=== PATIENT | female | born 1960 | race Caucasian/White ===

== ENCOUNTER 2019-07-25 18:20 | Emergency (ER) | payer MEDICARE, SELFPAY ==
--- NOTE | ~2019-07-25 | XR_ITS ---
EXAMINATION: XR nasal bones min 3V INDICATION: Facial pain TECHNIQUE: Three views of the nasal bones are obtained. COMPARISON: None available FINDINGS: There are depressed bilateral nasal bone fractures. Soft tissue swelling overlies the fract ures. The remaining visualized facial bones appear normal. The paranasal sinuses appear well-aerated. The nasal septum is midline. IMPRESSION: 1. Depressed bilateral nasal bone fractures. Reviewed, dictated and finalized at location A. IMPLEMENT ENGINE MECHANIC
[2019-07-25 18:34] VITALS: BP 174/88; PULSE 55; RESP 20; TEMP 36.6; O2SAT 100
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
--- NOTE | 2019-07-25 19:45 | PC.NURSE ---
20ml NS flushed through b/l nostrils per EDP verbal order.
[2019-07-25 21:33] VITALS: BP 140/70; PULSE 80; RESP 20; TEMP 36.7; O2SAT 99
== END 2019-07-25 21:34 | disposition home or self-care (01) ==
PROVIDERS: Emergency Provider Emergency Medicine
DX: S02.2XXA Fracture of nasal bones, initial encounter for closed fracture (principal); F32.9 Major depressive disorder, single episode, unspecified; M79.7 Fibromyalgia; E78.5 Hyperlipidemia, unspecified; E07.9 Disorder of thyroid, unspecified; Z90.81 Acquired absence of spleen; Z87.891 Personal history of nicotine dependence
CPT/HCPCS: 70160; 99283

== ENCOUNTER 2019-12-22 14:56 | Outpatient (CLI) | payer MEDICARE, SELFPAY ==
--- NOTE | ~2019-12-22 | US_ITS ---
EXAMINATION: US carotid duplex BI DATE: 12/22/2019 15:39 INDICATION: Encephalopathy with short-term memory loss. TECHNIQUE: Grayscale, color Doppler, and pulsed Doppler images of the cervical carotid arteries were obtained. The degree of vessel stenosis is placed in one of the following categories: normal, <50%, 5 0-69%, >=70% but less than near-occlusion, near-occlusion, or total occlusion. Note that percent sten osis relative to normal distal artery lumen diameter is indirectly measured from velocity measurement s as described by Giorgio, et al. Radiology 2003; [id number]:[id number]. COMPARISON: None. FINDINGS: RIGHT: The right common carotid artery (CCA) peak systolic velocity (PSV) is 74 cm/s. The right internal car otid artery (ICA) PSV is 82 cm/s. The right ICA end-diastolic velocity (EDV) is 19 cm/s. The right IC A/CCA PSV ratio is 0.8. Grayscale and color Doppler images yield an estimate of <50% diameter reducti on from minimal plaque in the ICA. The external carotid artery (ECA) PSV is 70 cm/s. There is antegra de flow in the right vertebral artery. LEFT: The left CCA PSV is 79 cm/s. The left ICA PSV is 65 cm/s. The left ICA EDV is 16 cm/s. The left ICA/C CA PSV ratio is 0.8. Grayscale and color Doppler images yield an estimate of <50% diameter reduction from small amount of plaque in the ICA. The ECA PSV is 48 cm/s. There is antegrade flow in the left v ertebral artery. IMPRESSION: 1. <50% stenosis in the right internal carotid artery. 2. <50% stenosis in the left internal carotid artery. Reviewed, dictated and finalized at location A.
== END 2019-12-22 14:57 | disposition home or self-care (01) ==
LOC: ANHIMG 14:57
PROVIDERS: PCP Family Medicine; Visit Provider Nurse Practitioner Family
DX: R09.89 Other specified symptoms and signs involving the circulatory and respiratory systems (principal); R41.3 Other amnesia; I65.23 Occlusion and stenosis of bilateral carotid arteries
CPT/HCPCS: 93880

== ENCOUNTER 2020-01-22 09:13 | Outpatient (CLI) | payer MEDICARE, SELFPAY ==
--- NOTE | ~2020-01-22 | MM_ITS ---
EXAMINATION: MM screening karen BI w tim HISTORY: Screening TECHNIQUE: Craniocaudal and mediolateral oblique 3-D tomosynthesis images were obtained and synthetic 2-D images were generated. CAD analysis was submitted and interpreted. COMPARISON: Comparison to multiple prior studies sequentially, with oldest reviewed study dated 08/2012. BREAST PARENCHYMAL COMPOSITION: There are scattered areas of fibroglandular density. FINDINGS: There is no evidence of suspicious mass, calcification, or architectural distortion to sugg est malignancy in either breast. There has been no suspicious interval change. IMPRESSION: 1. No mammographic evidence of malignancy. 2. Recommend routine screening mammography in one year. BI-RADS Category 1: Negative Reviewed, dictated and finalized at location A.
== END 2020-01-22 09:14 | disposition home or self-care (01) ==
PROVIDERS: PCP Family Medicine; Visit Provider Nurse Practitioner Family
DX: Z12.31 Encounter for screening mammogram for malignant neoplasm of breast (principal)
CPT/HCPCS: 77063; 77067

== ENCOUNTER 2020-07-16 09:38 | Outpatient (CLI) | payer MEDICARE, SELFPAY ==
--- NOTE | 2020-08-09 22:42 | WPDHOMESLEEP ---
Sleep Study - Home Unattended Date of Study: 07/16/20 Ordering Provider: Gianna Love NP Interpreting Provider: Vickie Duran MD Home Sleep Study Type: Apnea Link Air Height: 1.55 m Weight: 81.193 kg Body Mass Index: 33.8 Neck Circumference (inches): 15 [place]: 13 Reason for Sleep Study Fatigue, non restorative sleep, snoring, ophthalmic aide awakenings. Sleep History Caitlyn Mane is a 60 year old female who snores loudly. She wakes herself up snoring. This has worsened over the years. It is so loud that she says it wakes the neighbors. She takes naps in the day, snores during naps. She has chronic rhinitis and this causes her to breathe through mouth at night. She sometimes wakes up coughing. She wakes up with a dry mouth, stuffy head and feels groggy in the morning. After 6 hours of being awake she is exhausted and needs to take a nap. Because of these problem she went on disability in 1998. She has fibromyalgia. This is treated with Lyrica as well as other medications. Her depression is treated with Celexa minute. She has had 3 sleep studies, 2005 2008 and 2013 and this resulted in diagnosis of periodic limb movement disorder and narcolepsy. She was on several medications including Requip, Lunesta, Provigil as well as instituting sleep hygiene techniques and caffeine restriction. She stopped Provigil when she started Lyrica in 2018 due to side effects. She does not consume caffeine after 4:00 p.m.. She had sinus surgery 1997 after the start of her sleep problems to deal with chronic sinus infections. This surgery was repeated in 2008. This helped with recurrent sinus infections but not with her sleep issues. 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 She has tried nasal strips, 2 types of nasal dilators, a mandibular advancement device without improvement in her sleep. She is hoping CPAP can help with the collapse nasal valve. She occasionally awakens at night with heartburn, belching or coughing. She does not awaken from sleep feeling short of breath. She constantly has trouble sleeping with a cold. She does not wake up gasping for breath at night. She frequently has breathing problems at night observed by others. She occasionally sweats excessively at night. She does not notice her heart pounding or beating irregularly at night. She constantly falls asleep during the day, occasionally involuntarily never while driving. She does not have loss of muscle tone with strong emotion. She does not feel paralyzed on waking or falling asleep. She does not have vivid dreamlike scenes upon awakening or falling asleep. She does not feel afraid to go to sleep. She rarely has nightmares. She rarely remembers her dreams. She occasionally has racing thoughts. She rarely feels sad depressed or anxious. She rarely has muscular tension. She frequently notices parts of her body jerking. She constantly kicks at night. She does not have crawling and aching feelings in her legs at night. She occasionally has leg pain at night. She does not have morning jaw pain. She does not grind her teeth during sleep. She constantly is bothered by pain during the day. She occasionally is awakened by pain at night. She constantly wakes up feeling stiff in the morning with sore achy muscles and pain in the neck and spine. Normal bedtime is 9:00 p.m. falling asleep within 30 minutes, typically waking 2-3 times at night to urinate, read. Sometimes she may stay awake for 15 minutes and sometimes as long as 2 hours. She wakes in the morning at 5:00 a.m.. Weekend schedule is the same. She estimates getting 6 hours of sleep at night. [facility] Past Medical History Medical History Chronic fatigue syndrome Closed fracture nasal bone Depression
[2020-08-09 22:58] VITALS: BMI 33.8
== END 2020-07-16 09:39 | disposition home or self-care (01) ==
LOC: ANHCSM 09:39
PROVIDERS: PCP Family Medicine; Visit Provider Nurse Practitioner Family
DX: G47.10 Hypersomnia, unspecified (principal); G47.33 Obstructive sleep apnea (adult) (pediatric)
CPT/HCPCS: 95806

== ENCOUNTER → 2020-08-28 00:35 | Outpatient (CLI) | payer MEDICARE, SELFPAY ==
[2020-08-28 19:13] LABS: SARS-CoV-2 RNA PCR Negative
== END ==
PROVIDERS: PCP Family Medicine; Visit Provider Internal Medicine Critical Care Medicine
DX: Z01.812 Encounter for preprocedural laboratory examination (principal); Z20.822 Contact with and (suspected) exposure to COVID-19
CPT/HCPCS: C9803; U0003; U0005

== ENCOUNTER 2020-08-31 07:39 | Outpatient (CLI) | payer MEDICARE, SELFPAY ==
--- NOTE | 2020-09-15 11:45 | WPDSLEEPSTUD ---
Sleep Study Ordering Provider: Gianna Love NP Interpreting Physician: Vickie Duran MD Sleep Study Type: CPAP Titration Height: 1.55 m Weight: 81.647 kg Body Mass Index: 34.0 Neck Circumference (inches): 15 [place]: 13 Reason for Sleep Study Home Sleep Test July 16, 2020 with mild obstructive sleep apnea, AHI 9, desaturation to 84%, with 33% central apnea and 67% obstructive apneas; she present for a CPAP titration. Sleep History Caitlyn Mane is a 60 year old female who snores loudly, and wakes herself up snoring. This has worsened over the years. It is so loud that she says it wakes the neighbors. She takes naps in the day, snores during naps. She has chronic rhinitis and this causes her to breathe through her mouth at night. She sometimes wakes up coughing. She wakes up with a dry mouth, stuffy head and feels groggy in the morning. After 6 hours of being awake, she is exhausted and needs to take a nap. Because of these problem, she went on disability in 1998. She has fibromyalgia. This is treated with Lyrica as well as other medications. Her depression is treated with Celexa. She has had 3 sleep studies, 2005 2008 and 2013 and this resulted in diagnosis of periodic limb movement disorder and narcolepsy. She was on several medications including Requip, Lunesta, Provigil as well as instituting sleep hygiene techniques and caffeine restriction. She stopped Provigil when she started Lyrica in 2018 due to side effects. She does not consume caffeine after 4:00 p.m.. She had sinus surgery 1997 after the start of her sleep problems to deal with chronic sinus infections. This surgery was repeated in 2008. This helped with recurrent sinus infections but not with her sleep issues. 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 She has tried nasal strips, 2 types of nasal dilators, and a mandibular advancement device without improvement in her sleep. She is hoping CPAP can help with the collapsed nasal valve. She occasionally awakens at night with heartburn, belching or coughing. She does not awaken from sleep feeling short of breath. She constantly has trouble sleeping with a cold. She does not wake up gasping for breath at night. She frequently has breathing problems at night observed by others. She occasionally sweats excessively at night. She does not notice her heart pounding or beating irregularly at night. She constantly falls asleep during the day, occasionally involuntarily, but never while driving. She does not have loss of muscle tone with strong emotion. She does not feel paralyzed on waking or falling asleep. She does not have vivid dreamlike scenes upon awakening or falling asleep. She does not feel afraid to go to sleep. She rarely has nightmares. She rarely remembers her dreams. She occasionally has racing thoughts. She rarely feels sad depressed or anxious. She rarely has muscular tension. She frequently notices parts of her body jerking. She constantly kicks at night. She does not have crawling and aching feelings in her legs at night. She occasionally has leg pain at night. She does not have morning jaw pain. She does not grind her teeth during sleep. She constantly is bothered by pain during the day. She occasionally is awakened by pain at night. She constantly wakes up feeling stiff in the morning with sore achy muscles and pain in the neck and spine. Normal bedtime is 9:00 p.m. falling asleep within 30 minutes, typically waking 2-3 times at night to urinate, read. Sometimes she may stay awake for 15 minutes and sometimes as long as 2 hours. She wakes in the morning at 5:00 a.m.. Weekend schedule is the same. She estimates getting 6 hours of sleep at night. [facility] Past Medical History Medical History (Reviewed 09/15/20 @ 11:58 by Vickie Browne
[2020-09-15 11:47] VITALS: BMI 34.0
== END 2020-08-31 07:40 | disposition home or self-care (01) ==
LOC: ANHCSM 07:39
PROVIDERS: PCP Family Medicine; Visit Provider Nurse Practitioner Family
DX: G47.33 Obstructive sleep apnea (adult) (pediatric) (principal)
CPT/HCPCS: 95811

== ENCOUNTER 2021-02-24 14:33 | Outpatient (CLI) | payer MEDICARE, SELFPAY ==
--- NOTE | ~2021-02-24 | MM_ITS ---
EXAMINATION: MM screening [facility] BI w tim HISTORY: Screening TECHNIQUE: Craniocaudal and mediolateral oblique 3-D tomosynthesis images were obtained and synthetic 2-D images were generated. CAD analysis was submitted and interpreted. COMPARISON: Comparison to multiple prior studies sequentially, with oldest reviewed study dated 08/2014. BREAST PARENCHYMAL COMPOSITION: There are scattered areas of fibroglandular density. FINDINGS: There is no evidence of suspicious mass, calcification, or architectural distortion to sugg est malignancy in either breast. There has been no suspicious interval change. IMPRESSION: 1. No mammographic evidence of malignancy. 2. Recommend routine screening mammography in one year. BI-RADS Category 1: Negative Reviewed, dictated and finalized at location A.
--- NOTE | ~2021-02-24 | DEXA_ITS ---
Bone Density Report Name: Caitlyn Mane Age: 61 Sex: Female Ethnicity: White Date of : 1960 Indication: postmenopausal; height loss; history of glucocorticoids; prior fracture; rheumatoid arthritis; Referring Provider: Gianna Love Study: Bone densitometry was performed. Exam Date: February 24, 2021 Accession number: [id number] Bone Density: Region BMD T-score Z-score Classification AP Spine (L1-L4) 1.119 0.7 2.1 Normal Femoral Neck (Left) 0.724 -1.1 0.2 Osteopenia Total Hip (Left) 0.951 0.1 1.1 Normal Total Hip Bilateral Avg 0.941 0.0 1.0 Normal Femoral Neck (Right) 0.735 -1.0 0.3 Normal Total Hip (Right) 0.931 -0.1 0.9 Normal World Health Organization criteria for BMD impression classify patients as: Normal (T-score at or above -1.0), Osteopenia (T-score between -1.0 and -2.5), or Osteoporosis (T-score at or below -2.5). 10-year Fracture Risk(1): Major Osteoporotic Fracture 24% Hip Fracture 2.0% Reported Risk Factors: [place] (), Neck BMD=0.724, BMI=33.4, previous fracture, glucocorticoids, rheumatoid arthritis (1) FRAX(R) Version 3.08. Fracture probability calculated for an untreated patient. Fracture probability may be lower if the patient has received treatment. Previous Exams: Region Exam Age BMD T-score BMD Change BMD Change Date g/cm2 vs Baseline vs Previous AP Spine(L1-L4) 02/24/2021 61 1.119 0.7 -0.081(-6.8%)* -0.081(-6.8%)* 01/14/2019 58 1.201 1.4 Total Hip(Left) 02/24/2021 61 0.951 0.1 -0.074(-7.3%)* -0.074(-7.3%)* 01/14/2019 58 1.025 0.7 Total Hip(Right) 02/24/2021 61 0.931 -0.1 -0.071(-7.1%)* -0.071(-7.1%)* 01/14/2019 58 1.002 0.5 *Denotes significance at 95% confidence level, LSC for AP Spine = 0.022 g/cm2, LSC for Total Hip = 0.027 g/cm2 Clinical Information Provided by Patient: Has had a low trauma fracture Has taken Glucocorticoids Has rheumatoid arthritis Has used the following medications: Vitamin D, Calcium Patient maximum height was 62 Menopause Age: 56 Drinks caffeinated beverages Onset of menses at age 12 Number of children 1 Impression: The patient has low bone mass, based on the Left Femoral Neck T-score. The patient has an estimated ten-year risk of hip fracture of 2% and an estimated ten-year risk of major fracture of 24%, based on the WHO FRAX algorithm. The patient has risk factors, including: previous fracture, history of glucocorticoid therapy. The BM
== END 2021-02-24 14:34 | disposition home or self-care (01) ==
PROVIDERS: PCP Family Medicine; Visit Provider Nurse Practitioner Family
DX: Z12.31 Encounter for screening mammogram for malignant neoplasm of breast (principal); Z78.0 Asymptomatic menopausal state; M85.852 Other specified disorders of bone density and structure, left thigh
CPT/HCPCS: 77063; 77067; 77080

== ENCOUNTER → 2021-04-25 10:13 | Outpatient (CLI) | payer MEDICARE, SELFPAY ==
--- NOTE | ~2021-04-25 | XR_ITS ---
XR knee RT 2V DATE: 04/25/2021 10:29 INDICATION: Right knee pain TECHNIQUE: AP and lateral views COMPARISON: None FINDINGS: There is minimal periarticular spurring of the patella. No fracture or dislocation or joint effusion. No radiopaque intra-articular loose body or chondrocalcinosis. Periosteal reaction or bone destruction. IMPRESSION: Mild patellofemoral osteoarthritis Reviewed, dictated and finalized at location A. S SALESPERSON
== END ==
PROVIDERS: PCP Family Medicine; Visit Provider Nurse Practitioner Family
DX: M17.11 Unilateral primary osteoarthritis, right knee (principal)
CPT/HCPCS: 73560

== ENCOUNTER → 2022-03-09 10:33 | Outpatient (CLI) | payer MEDICARE, SELFPAY ==
--- NOTE | ~2022-03-09 | XR_ITS ---
EXAMINATION: XR chest 2V 03/09/2022 10:45 INDICATION: Dyspnea. PROCEDURE: 2 view chest COMPARISON: No prior studies for comparison. FINDINGS: The lungs are clear. The cardiomediastinal silhouette is within normal limits. There are no pleural effusions. There is no pneumothorax suspected. IMPRESSION: 1: NO ACUTE CARDIOPULMONARY DISEASE. Reviewed, dictated and finalized at location B.
== END ==
PROVIDERS: PCP Nurse Practitioner Family; Visit Provider Nurse Practitioner Family
DX: R06.09 Other forms of dyspnea (principal)
CPT/HCPCS: 71046

== ENCOUNTER 2022-03-09 10:47 | Outpatient (CLI) | payer MEDICARE, SELFPAY ==
[2022-03-09 19:51] LABS: Hematocrit 41.9 % (37.0-47.0); Hemoglobin 13.8 g/dL (12.0-15.0); Mean Corpuscular HGB Conc 32.9 g/dl (32-36); Mean Corpuscular Hemoglobin 31.9 pg (26-34); Mean Corpuscular Volume 96.8 fl (80-100); Mean Platelet Volume 9.9 fl (7.4-10.4); Platelet Count Result 321 k/mm3 (150-375); Red Blood Count 4.33 M/mm3 (4.2-5.4); Red Cell Distribution Width 13.3 % (11.5-14.5); White Blood Count 7.6 K/mm3 (4.5-10.0)
[2022-03-09 20:21] LABS: Alanine Aminotransferase 39 U/L (6-35); Albumin Level 4.4 g/dL (3.5-5.1); Alkaline Phosphatase 70 U/L (38-126); Anion Gap 10 mmol/L (8-16); Aspartate Amino Transferase 50 U/L (14-36); Bilirubin,Total 0.5 mg/dL (0.2-1.3); Blood Urea Nitrogen 24 mg/dL (7-17); Calcium 8.9 mg/dL (8.4-10.2); Carbon Dioxide 26 mmol/L (22-30); Chloride 100 mmol/L (98-107); Estimated Glomerular Filt Rate > 60; Glucose 77 mg/dL (65-110); Potassium 3.8 mmol/L (3.4-5.0); Sodium 136 mmol/L (137-145)
== END 2022-03-09 10:48 | disposition home or self-care (01) ==
LOC: ANHGOSHLAB 10:50
PROVIDERS: PCP Nurse Practitioner Family; Visit Provider Nurse Practitioner Family
DX: E03.9 Hypothyroidism, unspecified (principal); R53.83 Other fatigue
CPT/HCPCS: 36415; 71046; 80053; 82607; 84443; 85027

== ENCOUNTER 2022-03-28 10:07 | Outpatient (CLI) | payer MEDICARE, SELFPAY ==
--- NOTE | ~2022-03-28 | NM_ITS ---
EXAMINATION: NM phylicia stress w perfusion DATE: 03/28/2022 12:24 INDICATION: Other forms of dyspnea. TECHNIQUE: Rest images were obtained following intravenous administration of 9.5 mCi Tc99m tetrofosmi n (Myoview). The patient was infused intravenously with Lexiscan (regadenoson). Then, 30.4 mCi Tc99m tetrofosmin (Myoview) was administered intravenously, and supine and prone stress images were obtaine d. Data was reconstructed into short axis and horizontal and vertical long axis SPECT images. Gated S PECT images were also obtained. COMPARISON: None. FINDINGS: There is no definite reversible or fixed perfusion abnormality to suggest ischemia or infar ction. There is no segmental wall motion abnormality. Left ventricular ejection fraction measures > 70%. IMPRESSION: 1. No definite ischemia or infarct. 2. Normal left ventricular ejection fraction measuring >70%. Reviewed, dictated and finalized at location B.
--- NOTE | 2022-03-28 10:44 | EST_ITS ---
Patient Info Name: Caitlyn Mane Age: 62 years : 1960 Gender: Female Ht: 61 in Wt: 184 lbs BSA: 1.93 m2 Exam Date: 03/28/2022 11:12 AM Exam Location: [facility] Stress Patient Status: Outpatient Admit Date: 03/28/2022 Staff Ordering Physician: Gianna Love NP Attending Provider: Gianna Love NP Exercise Technologist: Gabbie Valverde RDCS Exercise Physician: Mushtaq Ley DO Exam Type: CA stress phylicia w NM Study Info Indications R06.00 - Dyspnea, unspecified A regadenoson stress test was performed. Summary 1. 1. Abnormal lexiscan stress test for ischemic ST changes by ECG criteria. 2. 2. Baseline hypertension. 3. 3. Nuclear scan to follow and will be reported separately. Please correlate with it. 4. 4. Patient informed of the above results. Protocol: Lexiscan Stress ECG Details Stage: REST Duration (min): 7 min : 47 sec HR (bpm): 66 SBP (mmHg): 142 DBP (mmHg): 80 Stage: REST Duration (min): 10 min : 28 sec HR (bpm): 64 SBP (mmHg): 142 DBP (mmHg): 80 Stage: STAGE 1 Duration (min): 1 min : 0 sec HR (bpm): 92 SBP (mmHg): 155 DBP (mmHg): 87 Stage: RECOVERY Duration (min): 1 min : 0 sec HR (bpm): 93 SBP (mmHg): 155 DBP (mmHg): 87 Stage: RECOVERY Duration (min): 2 min : 0 sec HR (bpm): 93 SBP (mmHg): 159 DBP (mmHg): 84 Stage: RECOVERY Duration (min): 3 min : 0 sec HR (bpm): 88 SBP (mmHg): 159 DBP (mmHg): 86 Stage: RECOVERY Duration (min): 3 min : 50 sec HR (bpm): 83 SBP (mmHg): 159 DBP (mmHg): 86 Rest HR: 64 bpm Peak HR: 96 bpm Rest Sys BP: 142 mmHg Peak Sys BP: 159 mmHg Max Pred HR: 158 bpm % Max Pred HR: 61 % Target HR: 134 bpm Max RPP: 15,264 bpm*mmHg Termination Reason: Completed protocol Cardiac Symptoms: Shortness of breath, Flushed Total Time: 1 min : 0 sec Rest Duffy BP: 80 mmHg Peak Duffy BP: 86 mmHg Total Dose: 0.4 mg Resting ECG Sinus rhythm. Stress ECG [address] depression in inferior leads and V4-V6. Arrhythmias None. Report Signatures
[2022-03-28 12:38] LABS: Alanine Aminotransferase 43 U/L (6-35); Albumin Level 4.7 g/dL (3.5-5.1); Alkaline Phosphatase 68 U/L (38-126); Anion Gap 9 mmol/L (8-16); Aspartate Amino Transferase 32 U/L (14-36); Bilirubin,Total 0.6 mg/dL (0.2-1.3); Blood Urea Nitrogen 16 mg/dL (7-17); Calcium 9.3 mg/dL (8.4-10.2); Carbon Dioxide 28 mmol/L (22-30); Chloride 102 mmol/L (98-107); Estimated Glomerular Filt Rate > 60; Glucose 99 mg/dL (65-110); Potassium 3.9 mmol/L (3.4-5.0); Sodium 139 mmol/L (137-145)
== END 2022-03-28 10:08 | disposition home or self-care (01) ==
PROVIDERS: PCP Nurse Practitioner Family; Visit Provider Nurse Practitioner Family
DX: R53.83 Other fatigue (principal); R06.09 Other forms of dyspnea; R74.8 Abnormal levels of other serum enzymes
CPT/HCPCS: 36415; 78452; 80053; 93017; A9502; J2785

== ENCOUNTER 2022-04-27 15:10 | Outpatient (CLI) | payer MEDICARE, SELFPAY ==
--- NOTE | ~2022-04-27 | MM_ITS ---
EXAMINATION: MM screening karen BI w tim HISTORY: Screening TECHNIQUE: Craniocaudal and mediolateral oblique 3-D tomosynthesis images were obtained and synthetic 2-D images were generated. CAD analysis was submitted and interpreted. COMPARISON: Comparison to multiple prior studies sequentially, with oldest reviewed study dated 11/25. BREAST PARENCHYMAL COMPOSITION: There are scattered areas of fibroglandular density. FINDINGS: There is no evidence of suspicious mass, calcification, or architectural distortion to sugg est malignancy in either breast. There has been no suspicious interval change. IMPRESSION: 1. No mammographic evidence of malignancy. 2. Recommend routine screening mammography in one year. BI-RADS Category 1: Negative Reviewed, dictated and finalized at location A. T LAB TECHNICIAN
== END 2022-04-27 15:11 | disposition home or self-care (01) ==
PROVIDERS: PCP Family Medicine; Visit Provider Student in an Organized Health Care Education/Training Program
DX: Z12.31 Encounter for screening mammogram for malignant neoplasm of breast (principal)
CPT/HCPCS: 77063; 77067

== ENCOUNTER 2022-05-26 08:42 | Outpatient (CLI) | payer MEDICARE, SELFPAY ==
--- NOTE | 2022-05-26 09:14 | ECHO_ITS ---
Patient Info Name: Caitlyn Mane Age: 62 years : 1960 Gender: Female Ht: 61 in Wt: 180 lbs BSA: 1.91 m2 HR: 58 bpm BP: 166 / 91 mmHg Technical Quality: Good Exam Date: 05/26/2022 9:18 AM Exam Location: [facility] Patient Status: Outpatient Admit Date: 05/26/2022 Staff Ordering Physician: Mushtaq Ley DO Art Preparator: Bjorn Brown RDCS, RT Attending Provider: Mushtaq Ley DO Referring Physician: Av HIDALGO; Exam Type: CA echo doppler color flow Study Info Indications R06.00 - Dyspnea, unspecified Complete two-dimensional, color flow and Doppler transthoracic echocardiogram is performed. Strain analysis performed. Summary 1. Complete two-dimensional, color flow and Doppler transthoracic echocardiogram is performed. 2. Left ventricular chamber dimension is normal. 3. Left ventricular systolic function is normal, estimated at 60-65%. 4. The left ventricular diastolic function is grade I diastolic dysfunction. 5. E/e' 8 is minimally elevated. 6. Global longitudinal strain is abnormal at -15.5%. 7. There is trace tricuspid valve regurgitation. 8. There is trace pulmonic regurgitation. Left Ventricle E/e' 8 is minimally elevated. Global longitudinal strain is abnormal at -15.5%. Left ventricular chamber dimension is normal. Left ventricular systolic function is normal, estimated at 60-65%. The left ventricular diastolic function is grade I diastolic dysfunction. Right Ventricle Right ventricular systolic function is normal and with normal TAPSE 2.2 cm. Right ventricular chamber dimension is normal. Left Atria Left atrial chamber dimension is normal. Right Atria Right atrial chamber dimension is normal. Aortic Valve The aortic valve is trileaflet. There is no aortic valve stenosis. There is no aortic valve regurgitation. Pulmonic Valve There is trace pulmonic regurgitation. Mitral Valve There is no mitral valve stenosis. There is no mitral valve regurgitation. Tricuspid Valve There is trace tricuspid valve regurgitation. RVSP is not calculated due to an inadequate TR jet. Pericardium/Pleural There is no pericardial effusion. Inferior Vena Cava Normal inferior vena cava with >50% collapse upon inspiration consistent with normal right atrial pressure, 5 mmHg. Aorta The aortic root size at the sinus of Valsalva is normal. Left Ventricular Outflow Tract Name Value Normal LVOT Doppler LVOT Peak Gradient 4 mmHg LVOT Mean Gradient 2 mmHg LVOT VTI 23 cm LVOT VTI/AV VTI Ratio 0.6 Mitral Valve Name Value Normal MV Doppler MV Decel Concho 474 cm/s2 MV PHT 55 ms MV Area (PHT) 4.0 cm2 4.0-5.0 MV Diastolic Function MV E Peak Velocity
== END 2022-05-26 08:43 | disposition home or self-care (01) ==
PROVIDERS: PCP Family Medicine; Visit Provider Internal Medicine Cardiovascular Disease
DX: R06.09 Other forms of dyspnea (principal)
CPT/HCPCS: 93306

== ENCOUNTER 2022-06-06 08:06 | Outpatient (CLI) | payer MEDICARE, SELFPAY ==
--- NOTE | 2022-06-28 20:56 | WPDSLEEPSTUD ---
Sleep Study Date of Study: 06/06/22 Ordering Provider: Gianna Love NP Interpreting Physician: Vickie Duran MD Sleep Study Type: BiPAP Titration Height: 1.55 m Weight: 86.183 kg Body Mass Index: 35.9 Neck Circumference (inches): 15 Beaman: 16 Reason for Sleep Study * 07/16/2020 Home sleep test using ApneaLink mild obstructive sleep apnea, AHI 9, 67% obstructive apneas and 33% central apneas, desaturation to 84% and significant snoring.? * 08/31/2020 CPAP titration on August 31, 2020 shows an optimal pressure of 13 cm using a medium Airfit F 20 full face mask and heated humidifier.? She has extreme fatigue, excessive daytime sleepiness after having COVID. With COVID, she stopped using CPAP due to coughing, not being able to tolerate it. compliance data from February 18 through May 18, 2022 shows usage of CPAP for greater than 4 hours on only 24% of the days and the average usage is 1 hours 45 minutes. Usage started to drop off after her October of 2020. She initially started using CPAP in November 2020 Sleep History Caitlyn Mane is a 62-year-old woman with extreme fatigue and excessive daytime sleepiness. She has a diagnosis of obstructive sleep apnea and started CPAP in November of 2020. She has a difficult time falling asleep and staying asleep. 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 She has a difficult time waking up. She has been to a sleep clinic in [place] [facility]. she does not awaken from sleep feeling short of breath. She rarely awakens at night with heartburn, belching or coughing. She always snores loudly enough that others complain. She frequently has trouble sleeping with a cold. She does not wake up gasping for breath at night. She occasionally has breathing problems at night observed by others. She rarely sweats excessively at night. She occasionally notices her heart pounding or beating irregularly night. She always falls asleep during the day, rarely falls asleep involuntarily and never falls asleep while driving. She does not have loss of muscle tone with strong emotion. She frequently has daytime difficulties due to her excessive sleepiness. She is currently retired. She rarely feels paralyzed on waking or falling asleep. She occasionally has vivid dreamlike scenes on waking or falling asleep. She had never feels afraid to go to sleep. She rarely has nightmares. She rarely remembers her dreams. She frequently has racing thoughts. She rarely feels sad, depressed or anxious. She frequently has muscular tension. She always kicks at night and notices parts of her body jerking. She frequently has crawling and aching feelings in her legs. She rarely has any kind of leg pain at night. She does not have morning jaw pain or grind her teeth during sleep. She always is bothered by pain during the day. She occasionally is awakened by pain at night. She constantly wakes up feeling stiff in the morning with sore achy muscles and pain in the neck and spine. She has memory problems, headaches and concentration difficulties. Normal bedtime is 8:30 p.m. taking an hour to fall asleep. She typically wakes twice at night to go to the bathroom. It may take her a 1/2 hour to return to sleep. She wakes the morning at 6:45 a.m.. Her weekend schedule is the same. She estimates getting 8-10 hours of sleep at night and naps during the day. If she is active she requires resting act after the activity. She attributes this to fibromyalgia. She takes naps in the afternoon or evening but a short nap lasting 10 or 15 minutes is not refreshing. She is drowsy for 2 hours after waking. She feels better in the morning compared to other times of day. Habits: Quit tobacco 20 years ago. Caffeine: 4 glasses of ice tea a day. Alcohol: 2 beverages on 3-5 days out of the week. She drinks wine and beer. She does not use recreational substances. [facility] Past Medical History Medical History (Reviewed 06/28/22 @ 21:02 by Vickie Bravo
[2022-06-28 21:48] VITALS: BMI 35.9
== END 2022-06-07 06:29 | disposition home or self-care (01) ==
LOC: ANHCSM 08:08
PROVIDERS: PCP Family Medicine; Visit Provider Nurse Practitioner Family
DX: G47.33 Obstructive sleep apnea (adult) (pediatric) (principal); G47.39 Other sleep apnea; G47.10 Hypersomnia, unspecified
CPT/HCPCS: 95811

== ENCOUNTER 2022-06-22 08:08 | Outpatient (CLI) | payer MEDICARE, SELFPAY ==
--- NOTE | ~2022-06-22 | CT_ITS ---
EXAMINATION: CT diagnostic chest wo con DATE: 06/22/2022 09:26 INDICATION: Personal history of nicotine dependence, cough and shortness of breath TECHNIQUE: Computed tomography (CT) of the chest was performed without intravenous contrast. The dose -length product (DLP) was 257.53 mGy-cm. Automated exposure control and iterative reconstruction tech [employer] were employed. COMPARISON: None FINDINGS: There is an 11 mm x 8 mm nodule of the right middle lobe. Calcified right hilar lymph nodes are consistent with old granulomatous disease. The lungs are free of acute opacities. There is mild atelectasis of the lingula and right middle lobe. No pleural effusion or pneumothorax. No pathologica lly enlarged thoracic lymph nodes are identified. The heart size is normal. Calcified coronary artery atherosclerosis is noted. Multiple splenules are noted in the left upper quadrant. There is severe t horacic spondylosis. IMPRESSION: 1. No CT correlate for the patient's symptoms. 2. Right middle lobe nodule measuring up to 11 mm. Recommend follow-up CT in three months, tissue hailey pling, or PET/CT. Reviewed, dictated and finalized at location L. ICE SUPERINTENDENT IMPRESSION: 1. No CT correlate for the patient's symptoms. 2. Right middle lobe nodule measuring up to 11 mm. Recommend follow-up CT in th ree months, tissue sampling, or PET/CT.
--- NOTE | 2022-06-22 15:55 | WPDSIXMINUTE ---
Six Minute Walk Procedure Procedure Performed Pulmonary Stress Test (6 min walk) Six Minute Walk Six Minute Walk: This is a 6 minute walk test. The test was performed and interpreted in accordance with the 2014 ERS/ATS task force guidelines. Of note, the patient cough throughout the entire walk. Findings: The patient's resting room air oxygen saturation measured by pulse oximetry was 96% and heart rate was 76 bpm. Patient ambulated for 259 meters and oxygen saturation remained 94 to 98%. Heart rate at the end of the study was 93 bpm. The patient did not qualify for supplemental oxygen at rest or with ambulation. There are no prior studies for comparison.
--- NOTE | 2022-06-22 15:56 | WPDPFTINT ---
PFT Procedure Performed PFT Procedure Performed Spirometry with Pre/Post Bronchodilator Plethysmography (Lung Vol) Diffusing Cap (DLCO) Flow Vol Loop PFT Interpretation This is a pulmonary function test with pre and post-bronchodilator spirometry, plethysmography and diffusing capacity. The test was performed and results interpreted in accordance with the 2019 and 2005 ATS/ERS Task Force guidelines respectively using the Global Lung Function Initiative-2012 reference equations. Patient demonstrated good effort and cooperation. Reproducibility criteria were met. The quality of the pre bronchodilator spirometry maneuver was Grade A and post bronchodilator spirometry maneuver was Grade A. Findings: Spirometry: The contour the inspiratory and expiratory flow tracing are normal. The pre bronchodilator FVC is 2.32 L, 83% predicted. The pre bronchodilator FEV1 is 1.78 L, 81% predicted. The pre bronchodilator FEV1: FVC ratio 77%. The post bronchodilator FVC is 2.33 L, representing no change. The post bronchodilator FEV1 is 1.92 L, representing an 8% increase. The post bronchodilator FEV1: FVC ratio was 82%. Plethysmography: The total lung capacity is 3.74 L, 81% predicted. Functional residual capacity is 1.77 L, 68% predicted. The residual volume is 1.31 L, 70% predicted. Diffusion capacity: The diffusing capacity unadjusted for hemoglobin and carboxyhemoglobin is 18.9, 94% predicted. The diffusing capacity adjusted for alveolar volume is 5.72, 126% predicted. Impression: The spirometry is normal without evidence of an obstructive abnormality. There is no significant improvement after inhaling a single dose of albuterol. The lung volumes are normal. The diffusing capacity is normal. There are no prior studies for comparison
== END 2022-06-22 08:09 | disposition home or self-care (01) ==
PROVIDERS: PCP Family Medicine; Visit Provider Physician Assistant
DX: R06.09 Other forms of dyspnea (principal); R91.1 Solitary pulmonary nodule
CPT/HCPCS: 71250; 94060; 94618; 94726; 94729

== ENCOUNTER 2022-09-18 15:08 | Outpatient (CLI) | payer MEDICARE, SELFPAY ==
--- NOTE | ~2022-09-18 | CT_ITS ---
CT Scan of the Chest without Contrast: Clinical Indication: Right middle lobe pulmonary nodule Technique: Contiguous sections were acquired throughout the chest without intravenous contrast. Dose reduction technique was used on this scan by utilizing automated exposure control and iterative recon struction technique. The dose-length product (DLP) was 125.46 mGy-cm. COMPARISON: 06/22/2022 Findings: There is no evidence of any significant mediastinal, hilar or axillary lymphadenopathy. Calcified med iastinal and right hilar lymph nodes are present. Coronary artery calcifications are present. There is no evidence of pleural or pericardial effusion. Stable scarring at the lingula and right middle lobe. Stable 1.2 x 0.8 cm right middle lobe pulmonary nodule with adjacent calcification. Images through the upper abdomen reveal no abnormalities. Impression: Stable 1.2 x 0.8 cm right middle lobe pulmonary nodule with right middle lobe and lingular scarring. Additional follow-up CT in 3-6 months recommended to ensure continued stability. Reviewed, dictated and finalized at [facility]. Impression: Stable 1.2 x 0.8 cm right middle lobe pulmonary nodule with right middle lobe a nd lingular scarring. Additional follow-up CT in 3-6 months recommended to ensu re continued stability.
== END 2022-09-18 15:09 | disposition home or self-care (01) ==
PROVIDERS: PCP Family Medicine; Visit Provider Nurse Practitioner Family
DX: R91.1 Solitary pulmonary nodule (principal)
CPT/HCPCS: 71250

== ENCOUNTER 2023-01-05 13:30 | Outpatient (RCR) | payer MEDICARE, SELFPAY | END 2023-01-05 23:59 | disposition home or self-care (01) | LOC: ANHCPREHAB 13:30 | PROVIDERS: PCP Family Medicine; Visit Provider Internal Medicine Critical Care Medicine | DX: J42 Unspecified chronic bronchitis (principal) | CPT/HCPCS: 94625; G0239 ==

== ENCOUNTER 2023-01-12 09:38 | Outpatient (RCR) | payer MEDICARE, SELFPAY | END 2023-02-14 09:33 | disposition home or self-care (01) | LOC: ANHCPREHAB 09:38 | PROVIDERS: PCP Family Medicine; Visit Provider Internal Medicine Critical Care Medicine | DX: J42 Unspecified chronic bronchitis (principal) | CPT/HCPCS: G0239 ==

== ENCOUNTER 2023-01-29 15:12 | Outpatient (CLI) | payer MEDICARE, SELFPAY ==
--- NOTE | ~2023-01-29 | CT_ITS ---
EXAMINATION: CT diagnostic chest wo con DATE: 01/29/2023 15:30 INDICATION: Lung nodule TECHNIQUE: Computed tomography (CT) of the chest was performed without intravenous contrast. The dose -length product (DLP) was 149.01 mGy-cm. Automated exposure control and iterative reconstruction tech [employer] were employed. COMPARISON: 09/18/2022, 06/22/2022 FINDINGS: There is a stable 11 x 8 mm nodule of the right middle lobe. A calcified right middle lobe nodule and calcified right hilar lymph nodes are consistent with old granulomatous disease. There is mild dependent atelectasis. Atelectasis is also noted in the lingula and right middle lobe. No pleura l effusion or pneumothorax. No pathologically enlarged thoracic lymph nodes are identified. The heart size is normal. Calcified coronary artery atherosclerosis is noted. There is severe thoracic spondyl osis. Multiple left upper quadrant splenules are again noted. IMPRESSION: 1. Stable right middle lobe nodule measuring up to 11 mm. Follow-up low-dose chest CT in six months i s recommended. Reviewed, dictated and finalized at location A. IMPRESSION: 1. Stable right middle lobe nodule measuring up to 11 mm. Follow-up low-dose [facility] CT in six months is recommended.
== END 2023-01-29 15:13 | disposition home or self-care (01) ==
PROVIDERS: PCP Family Medicine; Visit Provider Physician Assistant
DX: R91.1 Solitary pulmonary nodule (principal)
CPT/HCPCS: 71250

== ENCOUNTER 2023-02-13 07:29 | Emergency (ER) | payer MEDICARE, SELFPAY ==
[2023-02-13 07:34] VITALS: BP 130/73; PULSE 60; RESP 18; TEMP 36.6; O2SAT 100
[2023-02-13 07:39] VITALS: O2SAT 98
[2023-02-13 07:46] VITALS: BP 135/78; O2SAT 98
[2023-02-13 07:48] VITALS: O2SAT 98
[2023-02-13 08:01] VITALS: BP 114/59; O2SAT 97
[2023-02-13 08:02] VITALS: O2SAT 99
[2023-02-13] MEDS: CYCLOBENZAPRINE HCL 10 MG TABLET PO (09:56)
[2023-02-13] MEDS: ACETAMINOPHEN 500 MG TABLET 1000 MG PO (09:56)
[2023-02-13] MEDS: LIDOCAINE 5% PATCH 1 PATCH TRANSDERM (09:56)
--- NOTE | 2023-02-13 11:12 | ED.BACK ---
HPI - Back Pain/Injury General Chief Complaint: Back Pain/Injury Stated Complaint: right back pain Time Seen by Provider: 02/13/23 07:38 History of Present Illness HPI Narrative: This is a 63-year-old female, with past history of hypertension and hypothyroidism, who presents emergency department complaining of right-sided back pain for the past 5 days. The patient describes the pain as cramping, rated 7/10 with radiation down into the right leg. She denies associated fevers, chills, loss of bowel or bladder control, loss of sensation in the groin or weakness/numbness. She denies recent trauma. Related Data Home Medications Medication Instructions Recorded Confirmed pregabalin 300 mg capsule (Lyrica) 300 mg PO DAILY 07/30/19 01/19/23 pregabalin 50 mg capsule (Lyrica) 50 mg PO DAILY 07/30/19 01/19/23 triamcinolone acetonide 55 mcg intranasal 07/30/19 01/19/23 mcg/actuation nasal spray,aerosol cholecalciferol (vitamin D3) 125 125 mcg PO DAILY 12/02/19 01/19/23 mcg (5,000 unit) capsule folic acid 1 mg tablet 1 mg PO DAILY 02/17/20 01/19/23 methotrexate sodium 2.5 mg tablet 25 mg PO WEEKLY 02/17/20 01/19/23 duloxetine 60 mg capsule,delayed 60 mg PO DAILY 12/17/20 01/19/23 release (Cymbalta) cyclosporine 0.05 % eye drops in a 1 drp EACH EYE Q12H 11/01/22 01/19/23 dropperette (Restasis) prednisone 5 mg tablet 2.5 mg PO DAILY 02/05/23 Allergies Allergy/AdvReac Type Severity Reaction Status Date / Time Sulfa (Sulfonamide Allergy Hives Verified 02/13/23 07:29 Antibiotics) bee venom protein (honey bee) AdvReac Unknown Unknown Verified 02/13/23 07:29 doxycycline AdvReac Photosensit Verified 02/13/23 07:29 ivity Review of Systems Review of Systems: CONSTITUTIONAL: Denies fever, chills, or sweats. CARDIOVASCULAR: Denies chest pain, palpitations, or edema. RESPIRATORY: Denies cough or dyspnea. GASTROINTESTINAL: Denies abdominal pain, nausea, vomiting, or diarrhea. GENITOURINARY: Denies dysuria or hematuria. SKIN: Denies rash or itching. MUSCULOSKELETAL: Back pain denies joint pain, or myalgia. NEUROLOGIC: Denies headache, numbness, dizziness, or weakness. PSYCHIATRIC: Denies anxiety or depression. [facility] Past Medical History Medical History Chronic fatigue syndrome Closed fracture nasal bone Depression Fibromyalgia Follows with rheumatology - Dr Estevan Baez GERD without esophagitis H/O vaginal delivery x1 History of endometrial biopsy (~2019) Hyperlipidemia Hypertension Hypothyroidism Follows with endocrine - Dr Laguna IBS (irritable bowel syndrome) Obstructive sleep apnea Osteopenia of femoral neck Rheumatoid arthritis Follows with Dr Nestor Blcak Screening for malignant neoplasm of colon performed Negative Cologuard / 08/02/19 Sleep apnea Vitamin D deficiency Surgical History Surgical History H/O dilation and curettage H/O endoscopy History of endometrial ablation Hx of breast reduction, elective Hx of LASIK Hx of sinus surgery (~03/2020) Bilateral turbinectomy S/P splenectomy (~1990) Family History Family History Grandparent Family history of malignant neoplasm of breast Family history of coronary artery disease Father Family history of coronary artery disease Mother Parkinsons disease Other Cerebrovascular accident Depression Diabetes mellitus Family history of arthritis Family history of cardiovascular disease Family history of congestive heart failure Family history of elevated blood lipids Family history of obesity Hypertension Social History Social History Smoking packs per day: 1 Smoking cigarettes per day: 20.0 Years smoked: 15 Smoking pack-years: 15.00 Smoking status: Former smoker Tobacco type: cigarettes Secon
== END 2023-02-13 11:44 | disposition home or self-care (01) ==
PROVIDERS: Emergency Provider Preventive Medicine Aerospace Medicine; PCP Family Medicine
DX: M54.41 Lumbago with sciatica, right side (principal); M62.830 Muscle spasm of back; I10 Essential (primary) hypertension; E03.9 Hypothyroidism, unspecified; E78.5 Hyperlipidemia, unspecified; Z87.891 Personal history of nicotine dependence
CPT/HCPCS: 99283; A9270

== ENCOUNTER 2023-02-16 14:30 | Outpatient (CLI) | payer MEDICARE, SELFPAY ==
--- NOTE | ~2023-02-16 | XR_ITS ---
EXAMINATION: XR lumbar spine 2-3V DATE: 02/16/2023 14:37 INDICATION: Low back pain TECHNIQUE: Anteroposterior and lateral views of the lumbar spine, and cone-down lateral view of the l umbosacral junction were obtained. COMPARISON: None. FINDINGS: Bone alignment is normal. There is no fracture. The vertebral body heights are maintained. There is mild loss of intervertebral disc space height at L2-3, L4-5, and L5-S1. Small degenerative o steophytes project from the anterior endplates of multiple vertebral bodies. There is moderate facet joint osteoarthritis of the lower lumbar spine. IMPRESSION: 1. Mild/moderate lumbar spondylosis without acute findings. Reviewed, dictated and finalized at location B.
== END 2023-02-16 14:31 ==
LOC: GOSHIMG 14:31
PROVIDERS: PCP Family Medicine; Visit Provider Nurse Practitioner Family
DX: M47.896 Other spondylosis, lumbar region (principal)
CPT/HCPCS: 72100

== ENCOUNTER 2023-02-26 08:18 | Outpatient (CLI) | payer MEDICARE, SELFPAY ==
--- NOTE | ~2023-02-26 | MR_ITS ---
MRI of the lumbar spine Clinical History: Back pain Technique: Axial T2-weighted images, and sagittal T1-weighted, T2-weighted, and T2 fat-sat images wer e acquired. Findings: No acute fracture seen. Minimal grade 1 retrolisthesis of L3 over L4 noted. No suspicious b one marrow signal abnormality seen. At L1-L2, there is no disc bulge or herniation. There is mild facet arthropathy. No central canal abelardo nosis or neural foraminal narrowing. At L2-L3, there is moderate degenerative disc narrowing. There is diffuse disc bulge and moderate fac et arthropathy, with minimal central canal stenosis. There is minimal bilateral neural foraminal narr owing. At L3-L4, there is mild degenerative disc narrowing with mild disc bulge. There is mild facet arthrop athy. There is minimal central canal stenosis. There is moderate right neural foraminal narrowing, an d moderate to severe left neural foraminal narrowing. At L4-L5, there is disc bulge and degenerative disc narrowing, with moderate facet arthropathy. There is mild central canal stenosis. There is moderate bilateral neural foraminal narrowing. At L5-S1, there is disc bulge and moderate facet arthropathy. No esperanza central canal stenosis. There is severe bilateral neural foraminal narrowing, right worse than left. Paravertebral soft tissues are unremarkable. Impression: Moderate degenerative spondylosis, as above. Reviewed, dictated and finalized at [facility]. Impression: Moderate degenerative spondylosis, as above.
== END 2023-02-26 08:19 ==
LOC: GOSHIMG 08:18
PROVIDERS: PCP Family Medicine; Visit Provider Nurse Practitioner Family
DX: M54.41 Lumbago with sciatica, right side (principal); M47.896 Other spondylosis, lumbar region
CPT/HCPCS: 72148

== ENCOUNTER 2023-05-08 08:07 | Day surgery (SDC) | payer MEDICARE, SELFPAY ==
[2023-05-02 08:28] VITALS: BMI 31.2
--- NOTE | ~2023-05-08 | XR_ITS ---
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 TECHNIQUE: 2 fluoroscopic images of the lumbar spine were obtained during right L5-S1 IL injection. I was not present during the procedure. Fluoroscopy exposure time was 8.4 seconds. Air Kerma 5.06 mGy. COMPARISON: None FINDINGS: Vertebral tip approaches the L5-S1 disc space posteriorly, to the right of midline, followed by contr ast injection. IMPRESSION: Fluoroscopic documentation of right L5-S1 IL injection. Please refer to the operative note for comple te procedural details . Reviewed, dictated and finalized at location K. GRAIN FARMER IMPRESSION: Fluoroscopic documentation of right L5-S1 IL injection. Please refer to the ope rative note for complete procedural details .
--- NOTE | 2023-05-08 06:36 | WPDHPUPDATE1 ---
History and Physical Update Update Date/Time: 05/08/23 06:36 History and Physical has been reviewed, including an updated exam of the patient. There are NO changes in the patient's condition. Risks, benefits, and alternatives have been discussed and questions answered. Patient agrees to proceed with procedure.
[2023-05-08 08:30] VITALS: BP 127/68; PULSE 59; RESP 18; TEMP 37.1; O2SAT 100
--- NOTE | 2023-05-08 08:58 | W.PM.PROC2 ---
Procedure Note - Detailed Date of Procedure 05/08/23 Pre-op Diagnosis Lumbar Radiculopathy, lumbar spinal stenosis with neurogenic claudication Post-op Diagnosis Same Procedure Performed rightward L5-S1 interlaminar epidural steroid injection under fluoroscopic guidance with contrast control. Surgeon Peewee Neal MD Anesthesia Local Description of Procedure INFORMED CONSENT: Risks, benefits and alternatives to the procedure were discussed in detail with the patient who expressed explicit understanding and consent to proceed. Patient was informed verbally and in written form regarding the risks associated with the procedure including the low risk of serious infection, bleeding/bruising, allergic reaction, nerve or organ injury, paralysis, procedural site pain or discomfort, worsening pain and/or mobility, failure to treat and/or disfigurement. The patient expressed explicit understanding and consent to proceed. All materials required for the procedure were available prior to procedure start. Site and side were marked prior to procedure and confirmed in the presence of the patient. PROCEDURE IN DETAIL: The patient was brought to the procedural suite and placed in the prone position. Patient was made comfortable with use of pillows under the head/chest, hips and ankles. Skin overlying the injection site was prepared broadly with ChloraPrep applicator and draped in a sterile manner. Aseptic technique was employed throughout. The endplates of the vertebral body at the site of interest were aligned in the AP view. Slight caudad tilt and ipsilateral oblique angulation was utilized to optimize visualization of the targeted posterior intervertebral foramen at L5-S1. Local anesthesia was established by infiltration with approximately 5 mL of 2% lidocaine via a 1-1/2 inch 27-gauge needle. A 20-gauge 4-inch Tuohy epidural needle was advanced intermittently until appropriate loss of resistance to air was identified via plastic loss of resistance syringe. Lateral view was used to confirm the appropriate positioning of the needle tip within the posterior epidural space. [In the AP and lateral views, a total of 2.0 mL of Omnipaque 300 contrast medium was injected after negative aspiration for CSF, blood or other bodily fluid, showing appropriate posterior epidural spread of contrast without evidence of intravascular or intrathecal placement.] After a repeat negative aspiration for blood or other bodily fluid, a 4 mL solution containing 6 mg of betamethasone in sterile PF Normal Saline was injected after negative repeat aspiration. Appropriate spread of the injectate was confirmed with washout of previously injected contrast. No parasthesias were elicited. Needle was removed completely intact without difficulty. Images were saved and documented in the patient chart. Patient's skin was cleaned and sterile bandage applied. The patient tolerated the procedure well. The patient was transported to the recovery area in stable condition where they were observed for an appropriate amount of time prior to discharge, without evidence of complication. The patient was instructed to avoid excessive activity for the next 48 hours, including climbing and frequent use of stairs. Showers only for 48 hours. They were instructed not to drive or operate heavy machinery for 24 hours. They are to monitor for severe headaches, fevers, chills, night sweats, erythema/swelling at the site or any other signs of infection, bleeding/bruising, bowel or bladder changes as well as new pain, weakness or numbness in the upper or lower extremity. Should they notice these changes, they are instructed to call our office immediately or report directly to the nearest Emergency Department if no answer or if after posted office hours. COMPLICATIONS: None COMMENTS: None EXPOSURE: Time: 8.4s, Dose: 5.66mGy CONTRAST WASTED: 28mL Omnipaque 300. Complications None Condition Stable Disposition Same
[2023-05-08 09:07] VITALS: BP 155/77; PULSE 58; RESP 17; O2SAT 98
[2023-05-08] MEDS: LIDOCAINE HCL 1% PF INJ 5 ML VIAL 1.75 ML INFILTRATE (09:12)
[2023-05-08 09:15] VITALS: BP 151/78; PULSE 58; RESP 15; O2SAT 99
[2023-05-08] MEDS: BETAMETHASONE SODIUM PHOSPHATE PF INJ 6 MG/ML VIAL INFILTRATE (09:15)
[2023-05-08 09:20] VITALS: BP 128/74; PULSE 61; RESP 16; O2SAT 100
== END 2023-05-08 09:40 | disposition home or self-care (01) ==
LOC: ASC 08:09
PROVIDERS: PCP Family Medicine; Visit Provider Anesthesiology Pain Medicine
PROC: (CPT 62323; principal; 2023-05-08 09:15)
DX: M54.16 Radiculopathy, lumbar region (principal); M48.062 Spinal stenosis, lumbar region with neurogenic claudication
CPT/HCPCS: 62323; 99199

== ENCOUNTER 2023-05-24 10:24 | Outpatient (CLI) | payer MEDICARE, SELFPAY ==
--- NOTE | ~2023-05-24 | XR_ITS ---
EXAMINATION: XR lumbar spine min 4V DATE: 05/24/2023 10:48 INDICATION: Spondylosis without myelopathy or radiculopathy TECHNIQUE: Anteroposterior and lateral in neutral, flexion and extension views of the lumbar spine, a nd cone-down lateral view of the lumbosacral junction were obtained. COMPARISON: 02/16/2023 FINDINGS: Bone alignment is normal. No hypermobility is present with flexion or extension. The verteb ral body heights are maintained. There is unchanged mild loss of intervertebral disc space height at L2-3, L4-5, and L5-S1. Small degenerative osteophytes project from the anterior endplates of multiple vertebral bodies. There is moderate facet joint osteoarthritis of the lower lumbar spine. IMPRESSION: 1. Mild/moderate lumbar spondylosis without acute findings or significant interval change. Reviewed, dictated and finalized at location L. MANAGER IMPRESSION: 1. Mild/moderate lumbar spondylosis without acute findings or significant inter tomi change.
== END 2023-05-24 10:25 | disposition home or self-care (01) ==
PROVIDERS: PCP Family Medicine; Visit Provider Neurological Surgery
DX: M47.816 Spondylosis without myelopathy or radiculopathy, lumbar region (principal); M43.06 Spondylolysis, lumbar region
CPT/HCPCS: 72110

== ENCOUNTER 2023-06-07 11:03 | Outpatient (CLI) | payer MEDICARE, SELFPAY ==
--- NOTE | ~2023-06-07 | XR_ITS ---
XR hip LT min 2V 06/07/2023 11:30 Indication: Chronic left hip pain Procedure: 2 views left hip Comparison: No prior studies for comparison. Findings: No fracture or traumatic malalignment. No significant soft tissue abnormality. No foreign b odies. No significant joint space narrowing. Impression: 1: No significant bone or joint abnormality. Reviewed, dictated and finalized at location L. N DISTRIBUTOR Impression: 1: No significant bone or joint abnormality.
--- NOTE | ~2023-06-07 | XR_ITS ---
EXAM: XR sacroiliac joints min 3V DATE: 06/07/2023 11:30 HISTORY: M25.552 - Pain in left hip, chronic pain . COMPARISON: None available. FINDINGS: Decreased mineralization. No fracture or dislocation. No lytic or blastic lesion. Mild lum bar degenerative disc disease. Mild degenerative changes in the bilateral SI joints, bilateral hips, and pubic symphysis. No erosion or periosteal change. Soft tissues within normal limits. IMPRESSION: Mild degenerative changes in the bilateral SI joints. Reviewed, dictated and finalized at location K. RINE MIXER
== END 2023-06-07 11:04 | disposition home or self-care (01) ==
PROVIDERS: PCP Family Medicine; Visit Provider Neurological Surgery
DX: M46.1 Sacroiliitis, not elsewhere classified (principal)
CPT/HCPCS: 72202; 73502

== ENCOUNTER 2023-06-08 08:39 | Outpatient (CLI) | payer MEDICARE, SELFPAY ==
--- NOTE | ~2023-06-08 | DEXA_ITS ---
Bone Density Report Name: JUAN MITTAL Age: 63 Sex: Female Ethnicity: White Date of : 1960 Indication: postmenopausal; screening for osteoporosis; height loss; rheumatoid arthritis; Referring Provider: VICKY WATTS Study: Bone densitometry was performed. Exam Date: June 08, 2023 Accession number: [id number] Bone Density: Region BMD T-score Z-score Classification AP Spine(L1-L4) 1.097 0.5 2.1 Normal Femoral Neck (Left) 0.631 -2.0 -0.5 Osteopenia Total Hip (Left) 0.816 -1.0 0.1 Normal Femoral Neck (Right) 0.671 -1.6 -0.2 Osteopenia Total Hip (Right) 0.875 -0.6 0.6 Normal Total Hip Mean 0.845 -0.8 0.4 Normal World Health Organization criteria for BMD impression classify patients as: Normal (T-score at or above -1.0), Osteopenia (T-score between -1.0 and -2.5), or Osteoporosis (T-score at or below -2.5). 10-year Fracture Risk(1): Major Osteoporotic Fracture 12% Hip Fracture 1.7% Reported Risk Factors: [place] (), Neck BMD=0.631, BMI=33.2, rheumatoid arthritis (1) FRAX(R) Version 3.08. Fracture probability calculated for an untreated patient. Fracture probability may be lower if the patient has received treatment. Previous Exams: Region Exam Age BMD T-score BMD Change BMD Change Date g/cm2 vs Baseline vs Previous AP Spine (L1-L4) 06/08/2023 63 1.097 0.5 -0.103 (-8.6%) -0.022 (-2.0%) 02/24/2021 61 1.119 0.7 -0.081 (-6.8%) -0.081 (-6.8%) 01/14/2019 58 1.201 1.4 Total Hip(Left) 06/08/2023 63 0.816 -1.0 -0.209 (-20.4% -0.135 (-14.2% 02/24/2021 61 0.951 0.1 -0.074 (-7.3%) -0.074 (-7.3%) 01/14/2019 58 1.025 0.7 Total Hip(Right) 06/08/2023 63 0.875 -0.6 -0.127 (-12.7% -0.056 (-6.0%) 02/24/2021 61 0.931 -0.1 -0.071 (-7.1%) -0.071 (-7.1%) 01/14/2019 58 1.002 0.5 *Denotes significance at 95% confidence level, LSC for AP Spine = 0.022 g/cm2, LSC for Total Hip = 0.027 g/cm2 Clinical Information Provided by Patient: Has rheumatoid arthritis Has used the following medications: Vitamin D Patient maximum height was 62.0 Menopause Age: 56 Drinks caffeinated beverages Onset of menses at age 12 Number of children 1 Impression: The patient has low bone mass, based on the Left Femoral Neck T-score. The patient has an estimated ten-year risk of hip fracture of 1.7% and an estimated ten-year risk of major fracture of 12%, based on the WHO FRAX algorithm. The [employer]
== END 2023-06-08 08:40 | disposition home or self-care (01) ==
PROVIDERS: PCP Family Medicine; Visit Provider Internal Medicine Endocrinology, Diabetes & Metabolism
DX: M85.89 Other specified disorders of bone density and structure, multiple sites (principal); Z78.0 Asymptomatic menopausal state
CPT/HCPCS: 77080

== ENCOUNTER 2023-07-09 14:38 | Outpatient (CLI) | payer MEDICARE, SELFPAY ==
--- NOTE | ~2023-07-09 | MM_ITS ---
EXAMINATION: MM screening karen BI w tim HISTORY: Screening TECHNIQUE: Craniocaudal and mediolateral oblique 3-D tomosynthesis images were obtained and synthetic 2-D images were generated. CAD analysis was submitted and interpreted. COMPARISON: 04/27/2020 BREAST PARENCHYMAL COMPOSITION: There are scattered areas of fibroglandular density. FINDINGS: There is no evidence of suspicious mass, calcification, or architectural distortion to sugg est malignancy in either breast. There has been no suspicious interval change. IMPRESSION: 1. No mammographic evidence of malignancy. 2. Recommend routine screening mammography in one year. BI-RADS Category 1: Negative Reviewed, dictated and finalized at location A. H MIXING TRUCK DRIVER
== END 2023-07-09 14:39 | disposition home or self-care (01) ==
LOC: ANHIMG 14:39
PROVIDERS: PCP Family Medicine; Visit Provider Nurse Practitioner Family
DX: Z12.31 Encounter for screening mammogram for malignant neoplasm of breast (principal)
CPT/HCPCS: 77063; 77067

== ENCOUNTER 2023-07-12 15:57 | Outpatient (CLI) | payer MEDICARE, SELFPAY ==
--- NOTE | ~2023-07-12 | US_ITS ---
EXAMINATION: US carotid duplex BI DATE: 07/12/2023 17:40 INDICATION: Carotid atherosclerosis and stenosis. TECHNIQUE: Grayscale, color Doppler, and pulsed Doppler images of the cervical carotid arteries were obtained. The degree of vessel stenosis is placed in one of the following categories: normal, <50%, 5 0-69%, >=70% but less than near-occlusion, near-occlusion, or total occlusion. Note that percent sten osis relative to normal distal artery lumen diameter is indirectly measured from velocity measurement s as described by Giorgio, et al. Radiology 2003; 229:340-346. COMPARISON: 12/22/2019 FINDINGS: RIGHT: The right common carotid artery (CCA) peak systolic velocity (PSV) is 106 cm/s. The right internal ca rotid artery (ICA) PSV is 112 cm/s. The right ICA end-diastolic velocity (EDV) is 22 cm/s. The right ICA/CCA PSV ratio is 1.1. Grayscale and color Doppler images yield an estimate of <50% diameter reduc tion from plaque in the ICA. The external carotid artery (ECA) PSV is 147 cm/s. There is antegrade fl ow in the right vertebral artery. LEFT: The left CCA PSV is 104 cm/s. The left ICA PSV is 102 cm/s. The left ICA EDV is 27 cm/s. The left ICA /CCA PSV ratio is 1.0. Grayscale and color Doppler images yield an estimate of <50% diameter reductio n from plaque in the ICA. The ECA PSV is 133 cm/s. There is antegrade flow in the left vertebral vashti ry. IMPRESSION: 1. <50% stenosis in the right internal carotid artery. 2. <50% stenosis in the left internal carotid artery. Reviewed, dictated and finalized at location A. RESSIONAL DISTRICT AIDE
== END 2023-07-12 15:58 | disposition home or self-care (01) ==
PROVIDERS: PCP Family Medicine; Visit Provider Nurse Practitioner Family
DX: I65.23 Occlusion and stenosis of bilateral carotid arteries (principal); R09.89 Other specified symptoms and signs involving the circulatory and respiratory systems
CPT/HCPCS: 93880

== ENCOUNTER 2023-07-26 15:46 | Outpatient (CLI) | payer MEDICARE, SELFPAY ==
--- NOTE | ~2023-07-26 | CT_ITS ---
EXAMINATION: CT diagnostic chest wo con DATE: 07/26/2023 16:10 INDICATION: R91.1 - Solitary pulmonary nodule TECHNIQUE: Computed tomography (CT) of the chest was performed without intravenous contrast. Addition al 3D reconstructions utilizing coronal maximum intensity projection (MIP) were performed. Automated exposure control and iterative reconstruction technique were employed. The dose-length product was 10 6.77 mGy-cm. COMPARISON: 01/29/2023 and 06/22/2022 FINDINGS: No interval change since 06/22/2019 in a 12 x 9 mm right middle lobe nodule along the cephalad margin of a small calcified nodule at the latter along with prominent calcified right hilar lymph nodes cons istent with old granulomatous disease. Unchanged discoid atelectasis/scarring at the right middle lob e and lingula. There is a mosaic attenuation in the dependent aspect of the lower lobes consistent wi th additional atelectasis with small regions of more lucent subsegmental air trapping related to smal l airway disease. No pulmonary edema or pleural effusion. Heart size is normal. No pericardial effusi on. Thoracic aorta is normal in caliber. No pathologically enlarged thoracic lymphadenopathy. Subdiap hragmatic splenosis in the left upper quadrant. Severe thoracic spondylosis. IMPRESSION: 1. No interval change in a 12 x 9 mm right middle lobe nodule. While reassuring would consider additi onal 12 month follow-up low-dose noncontrast chest CT . Reviewed, dictated and finalized at location A. CTOR OF REHABILITATIVE SERVICES IMPRESSION: 1. No interval change in a 12 x 9 mm right middle lobe nodule. While reassuring would consider additional 12 month follow-up low-dose noncontrast chest CT .
== END 2023-07-26 15:47 | disposition home or self-care (01) ==
PROVIDERS: PCP Family Medicine; Visit Provider Physician Assistant
DX: R91.1 Solitary pulmonary nodule (principal)
CPT/HCPCS: 71250

== ENCOUNTER 2023-11-07 11:24 | Outpatient (CLI) | payer MEDICARE, SELFPAY ==
[2023-11-07 12:14] LABS: Hematocrit 42.2 % (37.0-47.0); Hemoglobin 14.3 g/dL (12.0-15.0); Mean Corpuscular HGB Conc 33.9 g/dl (32-36); Mean Corpuscular Hemoglobin 31.2 pg (26-34); Mean Corpuscular Volume 92.1 fl (80-100); Mean Platelet Volume 9.3 fl (7.4-10.4); Platelet Count Result 334 k/mm3 (150-375); Red Blood Count 4.58 M/mm3 (4.2-5.4)
[2023-11-07 12:29] LABS: Alanine Aminotransferase 26 U/L (6-35); Albumin Level 4.5 g/dL (3.5-5.1); Alkaline Phosphatase 94 U/L (38-126); Anion Gap 8 mmol/L (4-12); Aspartate Amino Transferase 28 U/L (14-36); Bilirubin,Total 0.6 mg/dL (0.2-1.3); Blood Urea Nitrogen 15 mg/dL (7-17); Calcium 9.7 mg/dL (8.4-10.2); Carbon Dioxide 23 mmol/L (22-30); Chloride 103 mmol/L (98-107); Estimated Glomerular Filt Rate > 60; Glucose 89 mg/dL (65-110); Potassium 3.9 mmol/L (3.4-5.0); Sodium 134 mmol/L (137-145)
[2023-11-11 04:58] LABS: Immunoglobulin A 261 mg/dL (70-320); TTG IGA AB <1.0 U/mL
== END 2023-11-07 11:25 | disposition home or self-care (01) ==
PROVIDERS: PCP Family Medicine; Visit Provider Nurse Practitioner
DX: E78.2 Mixed hyperlipidemia (principal); K58.0 Irritable bowel syndrome with diarrhea; R63.4 Abnormal weight loss; R10.9 Unspecified abdominal pain
CPT/HCPCS: 36415; 80053; 82784; 85027; 86364

== ENCOUNTER 2023-11-14 08:08 | Outpatient (CLI) | payer MEDICARE, SELFPAY ==
--- NOTE | ~2023-11-14 | CT_ITS ---
EXAMINATION: CT abdomen pelvis w con DATE: 11/14/2023 08:33 INDICATION: Abdominal cramping. Weight loss. Diarrhea. Mid abdominal pain. TECHNIQUE: Computed tomography (CT) of the abdomen and pelvis was performed with 100 mL Omnipaque 350 intravenous contrast. Automated exposure control and iterative reconstruction technique were employe d. The dose-length product was 485.51 mGy-cm. COMPARISON: Chest CT 07/26/2023, 06/22/22 FINDINGS: The visualized portions of the lung bases demonstrate mild atelectasis. There is mild bronc hiectasis in right middle lobe and lingula. There is an 11 mm nodule in right middle lobe, stable fro m 06/22/2022, likely benign. A calcified right lung nodule and calcified right hilar lymph nodes are c onsistent with old granulomatous disease. No pleural effusion. The heart size is normal. No pericardi al effusion. There are cysts in the liver measuring up to 7 mm. There is splenosis in left upper quad rant. The gallbladder, pancreas, and adrenal glands are normal. There is cortical thinning of right k idney. There is mild atrophy of left kidney. There are cysts in the kidneys measuring up to 7 mm on t he left. There is calcified atherosclerosis of the aorta and many of the other arteries. There is div erticulosis of the colon without evidence of diverticulitis. There are no dilated loops of bowel. The appendix is normal. There are no pathologically enlarged lymph nodes. There is no free intraperitone al fluid. There is severe thoracic and lumbar spondylosis. IMPRESSION: 1. No etiology for the patient's symptoms. Reviewed, dictated and finalized at location A.
== END 2023-11-14 08:09 | disposition home or self-care (01) ==
LOC: ANHIMG 08:12
PROVIDERS: PCP Family Medicine; Visit Provider Nurse Practitioner
DX: R10.9 Unspecified abdominal pain (principal); R63.4 Abnormal weight loss
CPT/HCPCS: 74177; Q9967

== ENCOUNTER 2024-03-11 14:10 | Outpatient (CLI) | payer MEDICARE, SELFPAY ==
--- NOTE | ~2024-03-11 | US_ITS ---
Pelvic ultrasound. Clinical History: Hormone replacement therapy Technique: Realtime transabdominal and transvaginal scanning of the pelvis was performed. Color flow Doppler and Doppler spectral analysis were performed. Findings: The uterus is anteverted. The endometrial stripe has a thickness of 3 mm. There is a 5 mm cystic area probably along the endometrial stripe. The right ovary measures 1.5 x 1.0 x 1.8 cm. No significant right ovarian or adnexal mass is seen. The left ovary measures 1.5 x 1.7 x 0.8 cm. No significant left ovarian or adnexal mass is seen. There is no evidence of free fluid in the cul de sac. Impression: 5 mm cystic area along the endometrial stripe, of uncertain, but doubtful clinical significance. Reviewed, dictated and finalized at [facility] M. Impression: 5 mm cystic area along the endometrial stripe, of uncertain, but doubtful clini jaya significance.
== END 2024-03-11 14:11 | disposition home or self-care (01) ==
PROVIDERS: PCP Nurse Practitioner Family; Visit Provider Nurse Practitioner Family
DX: R63.4 Abnormal weight loss (principal); Z79.890 Hormone replacement therapy
CPT/HCPCS: 76830; 76856

== ENCOUNTER 2024-07-15 16:24 | Outpatient (CLI) | payer MEDICARE, SELFPAY ==
--- NOTE | ~2024-07-15 | US_ITS ---
EXAM: PELVIC ULTRASOUND HISTORY: Postmenopausal woman with a history of abnormal endometrial evaluation presents for follow-u p ultrasound following endometrial biopsy COMPARISON: 03/2024. FINDINGS: UTERUS: 6.1 x 3.0 x 3.8 cm. The endometrium within the uterus as well as within the lower uterine segment and cervix are sonograp hically abnormal, and demonstrate punctate foci of increased echogenicity with artifact suggesting de nse calcifications. The endometrial complex measures 3 mm. The myometrium is markedly heterogeneous. RIGHT OVARY: The right ovary is unremarkable in echogenicity and size measuring 2.9 x 1.1 x 2.0 cm. Dopplerable flow is identified. LEFT OVARY: The left ovary is unremarkable in echogenicity and size measuring 2.0 x 1.2 x 1.8 cm Dopplerable flow is identified. No free fluid is identified within the pelvis. IMPRESSION: Dense calcifications within the endometrium which may be postprocedural in origin. Heterogeneous appearance of the myometrium. Reviewed, dictated and finalized at location A. I LIAISON ADVISER IMPRESSION: Dense calcifications within the endometrium which may be postprocedural in orig in. Heterogeneous appearance of the myometrium.
--- OUTSIDE RECORDS SUMMARY | 2024-07-15 16:29 | XMS_ITS | Clinical Summary ---
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 Name Role Phone Unavailable Primary Care Provider Unavailabl e Immunizations Name Administration Dates Next Due MODERNA COVID-19 (12+) MRNA, LNP-S, PF, 100 MCG/ 0.5 ML DOSE 08/20/2020,07/23/2020 Social History Tobacco Use Types Packs/Day Years Used Date Smoking Tobacco: Never Assessed Comments Unknown Sex and Gender Information Value Date Recorded Sex Assigned at Not on file Legal Sex Female 5:57 PM CDT Gender Identity Not on file Sexual Orientation Not on file Plan of Treatment Health Maintenance Due Date Last Done Comments Cervical Cancer Screening Pa p Smear (Age 30 to 64) Every 3 Years 1960 Colorectal Cancer Screening Colonoscopy (10 Years) 1960 Annual Physical 02/01/1963 Hepatitis C 02/01/1978 DTaP, Tdap and Td Vaccines ( 1 - Tdap) 02/01/1979 Cervical Cancer Screening Pa p with HPV Testing (Age 30 to 64) Every 5 Years 02/01/1990 Cervical Cancer Screening wi th HPV 02/01/1990 Mammogram Screening 2000 COVID-19 Vaccine (3 - 2023-2 5 season) 2024 08/20/2020, 07/23/2020 Influenza Adult (#1) 2024 RSV Immunization or 60+ Years (1 - 1-dose 75+ series) 02/01/2035 Zoster Vaccines Completed 12/31/2019, 08/08/2019 Meningococcal B Vaccine Aged Out No l onger eligible based on patient's age to complete this topic Meningococcal Vaccine Aged Out No justina jean claude eligible based on patient's age to complete this topic Pneumococcal Vaccine: Pediatrics (0 to 5 Years) and At-Risk Patients (6 to 64 Years) Aged Out No longer eligible b ased on patient's age to complete this topic RSV Immunizations Under 20 Months Aged Out No longer eligible b ased on patient's age to complete this topic
--- OUTSIDE RECORDS SUMMARY | 2024-07-15 16:29 | XMS_ITS | Continuity of Care Document ---
Author Organization [facility] Address [address] [place] [address] Phone Care Team Providers Care Finishing Range Supervisor Name Role Phone Yoly MCCRARY FACS, Jens Max Unavailab le Allergies, Adverse Reactions, Alerts Substance Reaction Status Criticality DOXYCYCLINE HCL Active No Informati on Sulfa (Sulfonamide Antibiotics) Active No Information Medications Medication Instructions Dosage Effective Dates (start - stop) Status Comments quinapril 5 mg tablet take 1 tablet by o ral route 2 times every day 5 MG - Active atorvastatin 10 mg tablet take 1 tablet by oral route every day 10 MG - Active minocycline 50 mg capsule take 2 capsule by oral route every 12 hours 100 MG - Active pantoprazole DR 40 mg granules delayed-release for susp in packet take 1 packet by oral route every day mixed in 1 teaspoonful of applesauce or apple juice 40 MG - Active Xatmep 2.5 mg/mL oral solution take one tablet daily - Active meloxicam 7.5 mg tablet take 1 tablet by oral route every day 7.5 MG - Active liothyronine 5 mcg tablet take 1 tablet by oral route every day 5 MCG - Active citalopram 10 mg tablet take 1 tablet by oral route every day 10 MG - Active prednisone 5 mg tablet take 1 tablet by oral route every day 5 MG - Active pregabalin 25 mg capsule take 1 capsule by oral route 3 times every day 25 MG - Active Procedures Procedure Date After Cataract Laser Surgery After Cataract Laser Surgery No Charge Refraction No Charge [facility] 022 Office/outpatient Visit, Est No Charge [facility] 021 Refraction Eye Exam & Treatment No Charge Refraction Post-op Follow-up Visit Post-op Follow-up Visit Remove Cataract, Insert Lens IOLMaster-Professional No Charge Refraction Post-op Follow-up Visit Post-op Follow-up Visit Remove Cataract, Insert Lens IOLMaster-Professional [facility]OLMaster-Technical No Charge [facility] Fundus Photos 021 No Charge Refraction No Charge GDX Retina No Charge Orbscan Office/outpatient Visit, [facility] Advance Directives Directive Yes / No Effective Date File Name No Information Encounters Encounter Description Practice Location Reason(s) For Visit Diagnoses Date Provider Providers Copied on Encounter [facility], [address] [place], [place] [address], [place], [id number], tel:[phone] [facility] No Information Aug- 2 Ewing Jens. [address] [place] [address] [employer], [address], [place], [id number], [place]. tel:[phone] Referring Provider: Milton Healy, [address] [place] [address], [address]. tel:[phone] [facility], [address] [place] [address] [address], [place], [place], [address], [place] tel:[phone] [facility] No Information Aug- 0- 2 Ewing Jens. [address] [place] [address] [employer], [address], [place], [place], [address], [place]. tel:[phone] Referring Provider: Milton Healy, [address] [place] [address], [address]. tel:[phone] Office/outpa tient Visit, Est [facility], [address] [place] [address] [address], [place], [place], [address], tel:[phone] SEC Lindsey N Lindbergh YAG Evaluation (chief complaint) Other secondary cataract, bilateral 2 Yoly Jens. [facility] [employer], [address], [place], [place], [address], [place]. tel:[phone] Estevan Baez MD.Alisson Laguna MD.Referrin g Provider: Milton Healy, [address] [place] [address], [address]. tel:[phone] [facility], [facility] [address], [place], [place], [address], tel:[phone] SEC Lindsey N Lindbergh Post-Op (chief complaint) Hx of LASIKPresenc e of intraocular lensOther secondary cataract, right eye 1 Ewing Jens. [address] [place] [address] [employer] [facility], [address], [place], [place], [address], [place]. tel:[phone] Estevan Baez MD.Alisson Laguna MD.Referrin g Provider: Milton Healy, [address] [place] [address], [address]. tel:[phone] [facility], [facility] [address], [place], [place], [address], [place] tel:[phone] SEC Ramon LEMUS Professional 2 wk po PCIOL OS (Near) (10/14/20) (chief complaint) Post op visit No Information Referring Provider: Milton Healy, [address] [place] [address], [address]. tel:[phone] [facility], [address] [place] [address] [address], [place], [place], [address], tel:[phone] SEC Ramon LEMUS Professional Post-Op (chief complaint) Post op visit 0 1 Jose Ferreira. [address] [facility], [facility] [address], [place], [place], [address], [place]. tel:[phone] Estevan Baez MD.Alisson Laguna MD.Referrin g Provider: Milton Healy, [address] [place] [address], [address]. tel:[phone] [facility], [address] [place] [address] [address], [place], [place], [address], tel:[phone] [facility] No Information 1 Ewing Jens. [address] [place] [address] [employer], [address], [place], [place], [address], . tel:[phone] Referring Provider: Milton Healy, [address] [place] [address], [address]. tel:[phone] [facility], [address] [place] [address] [address], [place], [place], [address], [place] tel:[phone] PALAK MurphyHarrison DILCIA No Information 1 Ewing Jens. [address] [place] [address] [employer], [address], [place], [place], [address], . tel:[phone] Referring Provider: Milton Healy, [address] [place] [address], [address]. tel:[phone] [facility], [address] [place] [address] [address], [place], [place], [address], tel:[phone] PALAK LEMUS Professional 2 wk po PCIOL OD (09/23/20) (chief complaint) Post op visit Sep-2 1 No Information Estevan Baez MD.Alisson Laguna MD.Referrin g Provider: Milton Healy, [address] [place] [address], [address]. tel:[phone] [facility], [address] [place], [place] [address], [place], [place], [address], [place] tel:[phone] SEC Ramon LEMUS Professional Post-Op (chief complaint) Post op visit 1 Jose Ferreira. [address] [facility], [address] [place], [address], [place]. tel:[phone] Estevan Baez MD.Alisson Laguna MD.Referrin g Provider: Milton Healy, [address] [place] [address], [address]. tel:[phone] [facility], [facility] [address], [place], [place], [address], [place] tel:[phone] [facility] No Information 1 Yoly Colindres. [facility] [employer], [address], [place], [place], [address], [place]. tel:[phone] Referring Provider: Milton Healy, [address] [place] [address], [address]. tel:[phone] [facility], [facility] [employer] [address], [place], [place], [address], [place] tel:[phone] PALAK Harrison [place] No Information 1 Yoly Colindres. [facility] [employer], [address], [place], [place], [address], [place]. tel:[phone] Referring Provider: Milton Healy, [address] [place] [address], [address]. tel:[phone] Office/outpa tient Visit, [facility], [address] [place], [place] [address], [place], [place], [address], [place] tel:[phone] SEC Ramon LEMUS Professional Cataract evaluation (chief complaint) Combined forms of age-related cataract, bilateralHx of LASIK 1 Yoly Colindres. [address] [employer] [facility], [address], [place], [place], [address], . tel:[phone] Estevan Baez MD.Alisson Laguna MD.Dago g Provider: Milton Greenberg OD A, [address] [facility], [place], [address]. tel:[phone] [facility], [address] [facility] [address], [place], [place], [address], [place] tel:[phone] PALAK LEMUS Professional No Information No Floral Decorator: Estevan Baez MD, [address] [facility] [address], [place], [address]. tel:[phone] alist: Alisson Laguna MD, [address] [facility] [address], [place], [address]. tel:[phone] Family History Family Member Type Diagnosis Age At Onset Problem Family history of degenerati ve disorder of macula Payers Payer name Insurance type Covered alliance party ID Authorragini cowan(s) [facility] Mdcr Adv CI [id number] Social History Type Description Quantity Date Captured Comments Sex Female Smoking Status No Information Chief Complaint And Reason For Visit No Information Reason For Referral Reason For Referral No Information Plan Of Treatment Date Type Action Status Goal Tobacco cessation counseling completed Patient Education Learning About YAG Lase r Capsulotomy completed Patient Education Cataract Surgery: What to Expect at H~ completed History Of Present Illness Encounter Date Complaint History Of Prese nt Illness YAG Evaluation The 61 year old female presents for evaluation of YAG Evaluation in the right eye and left eye. Hx of PCIOL OD 09/23/20 Distance PCIOL OS 10/14/20 Near, PCO OD, and Lasik OU. Pt reports difficulty seeing road signs, watching television, and is having glare issues while driving at night x8 months OU. Pt uses Systane OU PRN. Post-Op The 60 year old female presents for evaluation of Post-Op in the right eye and left eye. Pt has Hx of PCIOL OD 09/23/20 MV Distance PCIOL OS 10/14/20 Near. Pt states that her Distance is good, Intermediate at about arm's length is good, but up close/reading is not good nor is anything past arm's length. Pt is not currently using any eye gtts. Pt states that she is bothered by glare from headlights at night as well as glare during the day. Pt states that she is having difficulty with reading small print on medicine bottles and is having difficulty reading road signs. 2 wk po PCIOL OS (Near) (10/14/20) The 60 year old female presents for evaluation of 2 wk po PCIOL OS (Near) (10/14/20). Pt reports good comfort and vision OS. Pt reports taking Polytrim QID OS and Pred QID OS. Post-Op The 60 year old female presents for a 1 day post op CE OS. Patient to begin Pred and Poly qid OS. Patient states OS is set for NV. Patient denies any pain or discomfort. 2 wk po PCIOL OD (09/23/20) The 6 0 year old female presents for evaluation of 2 wk po PCIOL OD (09/23/20). Pt reports good comfort and vision OS. Pt reports taking Pred QID OD and Poly QID OD x 1 week. Pt reports trouble driving at night, she sees glare from oncoming headlights at night. Pt reports trouble seeing street signs and small print at near such as newspapers, books, and medicine bottles x many months OS. Post-Op The 60 year old female presents for evaluation of 1 day Post-Op in the right eye. Monovision, OD is set for distance. Patient states she is doing fine and not having any problems. Pt states she had mild pain last night and used Tylenol. Post op instructions reviewed with patient. Patient will start using Poly and Pred today. Cataract evaluation The 60 year old female presents for a cataract evaluation ou per Dr. Greenberg OD. Patient has a hx of Lasik ou (Dr. Yoly). Patient c/o she is bothered by glare driving at night x 1 year. Patient likes to sew and is having a hard time threading a needle. Patient is having a hard time seeing road signs. Functional Status Date Functional Assessmen t No Information Instructions Date Instruction Additional Infor edith Impression/Plan Impression/Plan Impression/Plan Impression/Plan Impression/Plan Impression/Plan Impression/Plan Assessments Type Assessment Date No Information Patient Care Teams Name Effective Dates (start - stop) Status Members No Information
== END 2024-07-15 16:25 | disposition home or self-care (01) ==
PROVIDERS: PCP Family Medicine; Visit Provider Obstetrics & Gynecology
DX: R93.89 Abnormal findings on diagnostic imaging of other specified body structures (principal)
CPT/HCPCS: 76830; 76856

== ENCOUNTER 2024-07-23 09:22 | Outpatient (CLI) | payer MEDICARE, SELFPAY ==
--- NOTE | ~2024-07-23 | MM_ITS ---
EXAMINATION: MM screening karen BI w tim HISTORY: Screening TECHNIQUE: Craniocaudal and mediolateral oblique 3-D tomosynthesis images were obtained and synthetic 2-D images were generated. CAD analysis was submitted and interpreted. COMPARISON: Comparison to multiple prior studies sequentially, with oldest reviewed study dated 12/18. BREAST PARENCHYMAL COMPOSITION: Not dense: There are scattered areas of fibroglandular density. FINDINGS: There is no evidence of suspicious mass, calcification, or architectural distortion to sugg est malignancy in either breast. There has been no suspicious interval change. IMPRESSION: 1. No mammographic evidence of malignancy. 2. Recommend routine screening mammography in one year. BI-RADS Category 1: Negative Reviewed, dictated and finalized at location B. LAY FABRICATOR
--- OUTSIDE RECORDS SUMMARY | 2024-07-23 10:00 | XMS_ITS ---
Author Organization [facility] As [place] Address [address] [facility] [address] [place] [address] Care Team Providers Care Slat Basket Maker Name Role Phone Duarte MCCRARY, Autumn Primary Care Provider Unavailable Iris Arce Unavailable [phone] Allergies Allergen (clinical drug ingredient) Drug/Non Drug Allergy documented on EMR Reaction Allergy Type Onset Date Status doxycycline Doxycycline Unknown Drug Allergy Act michael Substance with sulfonamide structure and antibacterial mechanism of action (substance) Sulfa Antibiotics Unknown Drug Allergy Active REASON FOR VISIT 1 month f/u Medications Medication SIG (Take, Route, Frequency, Duration) Notes Start Date End Date Status Restasis 0.05 % Ophthalmic for 90 Days Active Mirtazapine 15 MG 1 tablet at bedtime Orally Once a day for 30 days 07/02/2024 Active Levothyroxine Sodium 50 MCG Oral for 100 Days Active Minocycline HCl 50 MG TAKE 1 CAPSULE BY MOUTH TWICE DAILY Oral for 90 Days Active Escitalopram Oxalate 10 MG 1.5 tablet Or ally Once a day for 30 days Active Gemtesa 75 MG 1 tablet Orally Once a day Active Restasis 0.05 % 1 drop into affected eye Ophthalmic Twice a day Active Social History Tobacco Use: Social History Observation Description Date Details (start date - stop date) Former Smoker NA - 06/11/1988 Sex Assigned At : Social History Observation Description Sex Assigned At Female Tobacco Control (Standard) Question Answer Notes When did you stop smoking? 06/11/1988 Tobacco use: Former smoker How long has it been since you last smoked? Andrew ter than 10 years AUDIT-C (Standard) Question Answer Notes Did you have a drink contain ing alcohol in the past year? Yes How often did you have six o r more drinks on one occasion in the past year? Never (0 point) How many drinks did you have on a typical day when you were drinking in the past year? 1 or 2 drinks (0 point) How often did you have a dri nk containing alcohol in the past year? 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 07/02/2024 YENI (generalized anxiety disorder) (ICD-10 - F41.1) 07/02/2024 Primary insomnia (ICD-10 - F51.01) 07/02/2024 Other Increase escitalopram to 15mg daily for mood, anxiety Start mirtazapine 15mg qHS PRN for sleep Patient educated on all medications including potential benefits, side effects, risks. Educated on proper dosing schedule and importance of compliance. -Assessment and treatment plan reviewed with patient. -Compliance with treatment plan importance discussed. -Discussed the risks/benefits of this medication -Discussed medication side effects. -Contact office if symptoms worsen. -Discussed that it can take up to 6-8 weeks to see full therapeutic effects of psychotropic medications. -Crisis prevention hotline 988. Plan Of Treatment Medication Medication Name Sig Start Date Stop Date Notes Mirtazapine 15 MG 1 tablet at bedtime Orally Once a day for 30 days 07/02/2024 Escitalopram Oxalate 10 MG 1.5 tablet Or ally Once a day for 30 days QUEtiapine Fumarate 25 MG 1-2 tablet Ora l Once a day for 30 days Treatment Notes Assessment Notes MDD (major depressive disord er), recurrent severe, without psychosis SSRI/SNRI side effects discussed includi ng but not limited to, gastric upset, nausea, vomiting, diarrhea and/or constipation, weight changes, sexual side effects including loss of libido, increased suicidal thoughts/behaviors in children and young adults, and serotonin syndrome. Other Increase escitalopram to 15mg daily for mood, anxiety Start mirtazapine 15mg qHS PRN for sleep Patient educated on all medications including potential benefits, side effects, risks. Educated on proper dosing schedule and importance of compliance. Next Appt Details Follow Up: 6 Weeks, Reason: medication follow up Provider Name:Iris Arce, 08/04/2024 03:30:00 PM, [address], [facility] [address], [place], [address], Progress Notes * Caitlyn MANEDOB:1960 (64 yo F)Acc No.[id number]:07/02/2024 Patient: Caitlyn NUNEZ Provider: VALERIA PEREZHNP :1960 A ge:64 Y S ex:Female Date:07/02/2024 Phone: Address:[address] [place], [place] [id number] Pcp:Autumn Zhu Subjective: * Chief Complaints: * 1 month f/u * HPI: P ast Psychiatric Hospitalizations: Previous psychiatric hospitalizations P revious Psychiatric Hospitalization N o. P ast History of Suicidal attempt H ave you ever attempted suicide in the past N o. Social hx: . 3 estranged children. 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 Previous medications: fluoxetine (tremors), Elavil, duloxetine (increased intraocular pressure), effexor, Milnacipran, trazodone (hangover), pristiq (ineffective) Supplements: vitamin D, magnesium, fish oil Trauma/Abuse: denies Substance use hx: d enies Nicotine: former smoker- quit over 30 years ago Alcohol: rare. H istory of Presenting Problem: Medication Side Effects n one . A nxiety R ates anxiety 5/10 with 10 being most severe. Denies recent panic attacks. . D epression R ates depression 5/10 with 10 being most severe. Denies SI. . M ood lability n o antonino . P sychosis n o hx psychosis . S leep disturbance w ith a history of sleep apnea- off CPAP. S uicidal ideation d enies . P sychotherapy [facility] at [facility] . Here for follow up. Escitalopram increased last apt. Mother in law has been in the hospital for the past week, had UTI and heart attack, out of the ICU but is doing better. States upping the dose of the lexapro helped, it is not great but better . Has had a few days of feeling hopeless and helpless, no suicidal thoughts. No panic attacks. Sleep-felt hungover with quetiapine so stopped taking it. Getting about 5 hours of sleep nightly on average. Appetite is fair. D epression Screening: YENI-7 (2018 Edition) F eeling nervous, anxious, or on edge?Not at all, N ot being able to stop or control worrying S everal days, W orrying too much about different things S everal days, T rouble relaxing S everal days, B eing so restless that it is hard to sit still N ot at all, B ecoming easily annoyed or irritable?Several days, F eeling afraid as if something awful might happen N ot at all, I f you checked any problems, how difficult have they made it for you to do your work, take care of things at home, or get along with other people? S omewhat difficult. C [place]-Suicide Severity Rating Scale: Suicide Risk (CSRS-screener) i n the past one month Have you wished you were or wished you could go to sleep and not wake up? Y es, i n the past one month Have you actually had any thoughts of killing yourself? N o. D epression screening: PHQ-9 L ittle interest or pleasure in doing things M ore than half the days, F eeling down, depressed, or hopeless S everal days, T rouble falling or staying asleep, or sleeping too much N early every day, F eeling tired or having little energy N early every day, P oor appetite or overeating N early every day, F eeling bad about yourself or that you are a failure, or have let yourself or your family down S ever days, T rouble concentrating on things, such as reading the newspaper or watching television?Several days, M oving or speaking so slowly that other people could have noticed; or the opposite, being so fidgety or restless that you have been moving around a lot more than usual N ot at all, T houghts that you would be better off or of hurting yourself in some way S ever (Consider Suicide Assessment Risk), T otal Score 1 5, I nterpretation M oderately Severe Depression. I ntervention D epression Screening Findings N egative, S uicide Risk Assessment Performed . * ROS: G eneral / Constitutional: Patient denies h eadache, lightheadedness, weight loss.?Patient complains of c hange in appetite,weight gain. Junior pulliam [facility] HPI for details. P sychiatric: Patient denies a uditory / visual hallucinations, delusions, suicidal thoughts, antonino, psychosis, panic attacks, difficulty concentrating. P atient complains of a nxiety,depressed mood. Junior pulliam S HPI for details. * Medical History: * Surgical History: flo mcgregor 03/11/1985Splenectomy 11/19/1990sinus surgery 01/03/1998breast reduction 10/05/1999lasik 01/25/2002sinus surgery 10/07/2008endometrial ablation 01/29/2009mental lapse 04/19bil inferiorturbinate reduction 03/29/2020cataract right 11/14/2020; left 09/23/2020yag laser capsulotomy right 08/18/2021yag left 09/01/2021 * Hospitalization/Major Diagno stic Procedure: * Family History: F ather: None. M aternal Aunt: None. M aternal Uncle: None. P aternal Aunt: None.?Paternal Uncle: None. M other: None. P aternal Grandfather: None. P aternal Grandmother: None. M aternal Grandfather: None. M aternal Grandmother: None. B rother: None.?Sister: None. D ronel: None. * Social History: T obacco Use: T obacco Control (Standard) W hen did you stop smoking? , T obacco use:?Former smoker, H ow long has it been since you last smoked? G reater than 10 years. D rug/Alcohol: D rugs H ave you used drugs other than those for medical reasons in the past 12 months??No. A ALAN-C (Standard) D id you have a drink containing alcohol in the past year? Y es, H ow often did you have six or more drinks on one occasion in the past year? N ever (0 point), H ow many drinks did you have on a typical day when you were drinking in the past year? 1 or 2 drinks (0 point), H ow often did you have a drink containing alcohol in the past year? 2 to 4 times a month (2 points). 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 Safety issues A re there any firearms in the house??Yes. A dvance Care Planning A re you your own decision-maker Y es, D o you have Power of Special Projects Coordinator for Health or Medical? N o. S ocial History: H james Barrios arital Status: M arried, N umber of Adults in household: 2 , N umber of Children in Household: 0 , L evel of Education: [employer]/Masters/PhD. * Medications: T akingRestasis 0.05 % Emulsion 1 drop into affected eye Ophthalmic Twice a day Gemtesa 75 MG Tablet 1 tablet Orally Once a day Minocycline HCl 50 MG Capsule TAKE 1 CAPSULE BY MOUTH TWICE DAILY Oral Levothyroxine Sodium 50 MCG Tablet Oral Restasis 0.05 % Emulsion Ophthalmic Escitalopram Oxalate 10 MG Tablet 1 tablet Orally Once a day , Notes to Pharmacist: cancel any remaining 5mg scripts pleaseQUEtiapine Fumarate 25 MG Tablet 1-2 tablet Oral Once a day Medication List reviewed and reconciled with the patientTaking Restasis 0.05 % Emulsion 1 drop into affected eye Ophthalmic Twice a day Taking Gemtesa 75 MG Tablet 1 tablet Orally Once a day Taking Minocycline HCl 50 MG Capsule TAKE 1 CAPSULE BY MOUTH TWICE DAILY Oral Taking Levothyroxine Sodium 50 MCG Tablet Oral Taking Restasis 0.05 % Emulsion Ophthalmic Taking Escitalopram Oxalate 10 MG Tablet 1 tablet Orally Once a day , Notes to Pharmacist: cancel any remaining 5mg scripts pleaseTaking QUEtiapine Fumarate 25 MG Tablet 1-2 tablet Oral Once a day Medication List reviewed and reconciled with the patient * Allergies: S ulreba AntibioticsDoxycyclineno[Allergies Verified] Objective: * Vitals: * Examination: P sychiatry: Appearance: w ell-groomed. Abnormal body movements: n one. Affect / mood: d epressed, sad. Attention: g ood. Attitude: c ooperative. Homicidal ideation: n one. Suicidal ideation: n one. Degree of awareness of surroundings: w ithin normal limits.? Delusions: n o. Hallucinations: n o. Insight: g ood. Judgement: g ood. Orientation: a wake, alert and oriented x 3. Perceptual disorders: n o perceptual disorder noted. Psychomotor activity: w ithin normal range. Speech / language: n ormal rate, volume, and articulation (RVR), clear and coherent, appropriate pitch/modulation. Thought content: a ppropriate. Thought process: i ntact. Assessment: * Assessment: 1. M DD (major depressive disorder), recurrent severe, without psychosis - F33.2 (Primary) 2 . G AD (generalized anxiety disorder) - F41.1 3 . P rimary insomnia - F51.01 Plan: * Treatment: 2. P rimary insomnia Stop QUEtiapine Fumarate Tablet, 25 MG, 1-2 tablet, Oral, Once a day, 30 days, 60 Tablet; S tart Mirtazapine Tablet, 15 MG, 1 tablet at bedtime, Orally, Once a day, 30 days, 30, Refills 1. ? 3. O thers Notes: Increase escitalopram to 15mg daily for mood, anxiety Start mirtazapine 15mg qHS PRN for sleep Patient educated on all medications including potential benefits, side effects, risks. Educated on proper dosing schedule and importance of compliance. Clinical Notes: -Assessment and treatment plan reviewed with patient. -Compliance with treatment plan importance discussed. -Discussed the risks/benefits of this medication -Discussed medication side effects. -Contact office if symptoms worsen. -Discussed that it can take up to 6-8 weeks to see full therapeutic effects of psychotropic medications. -Crisis prevention hotline 103. * Procedure Codes: 9 6127 BEHAV ASSMT W/SCORE & DOCD/STAND [id number] VISIT COMPLEXITY INHERENT TO ONGOING CARE RELATED TO A PATIENT'S SINGLE, SERIOUS CONDITION OR A COMPLEX [id number] CLIN DEPRESSION SCREEN DOC * Follow Up: 6 Weeks (Reason: medication follow up) * Billing Information: * Visit Code: 65538 OFFICE OUTPATIENT VISIT 25 MINUTES DETAILED HISTORY AND EXAM/MODERATE MEDICAL DECISION MAKING. * Procedure Codes: 44150 BEHAV ASSMT W/SCORE & DOCD/STAND INSTRUMENT. G2211 VISIT COMPLEXITY INHERENT TO ONGOING CARE RELATED TO A PATIENT'S SINGLE, SERIOUS CONDITION OR A COMPLEX CONDITION. G8431 CLIN DEPRESSION SCREEN DOC. * PULVERIZER OPERATOR Sign off status: Completed true * Provider: HAILEE PEREZ Date: 0 07/02/2024 Generated for Kelly rai/Klever/Doriransmitting on: 0 07/23/2024 10:00 AM COAL PULVERIZER OPERATOR History and Physical Notes * HPI (History of Present Illness) Category Sub-Category Detail Notes Category Not es History of Presenting Problem Anxiety Rates anxiety 5/10 with 10 b eing most severe. Denies recent panic attacks. Here for follow up. Escitalopram increased last apt. Mother in law has been in the hospital for the past week, had UTI and heart attack, out of the ICU but is doing better. States upping the dose of the lexapro helped, it is not great but better . Has had a few days of feeling hopeless and helpless, no suicidal thoughts. No panic attacks. Sleep-felt hungover with quetiapine so stopped taking it. Getting about 5 hours of sleep nightly on average. Appetite is fair. Depression Rates depression 5/1 0 with 10 being most severe. Denies SI. Suicidal ideation denies Sleep disturbance with a history of sl eep apnea- off CPAP Psychosis no hx psychosis Mood lability no antonino Psychotherapy X[facility] Partida at [facility]- PRN Medication Side Effects none Past Psychiatric Hospitalizations Previous psychiatric hospitalizations Previous Psychiatric Hospitalization: No Social hx: . 3 estranged children. 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 Previous medications: fluoxetine (tremors), Elavil, duloxetine (increased intraocular pressure), effexor, Milnacipran, trazodone (hangover), pristiq (ineffective) Supplements: vitamin D, magnesium, fish oil Trauma/Abuse: denies Substance use hx: denies Nicotine: former smoker- quit over 30 years ago Alcohol: rare Past History of Suicidal attempt Have yo u ever attempted suicide in the past: No Depression screening PHQ-9 Little inte rest or pleasure in doing things: More than half the days Feeling down, depressed, or hopeless: Se veral days Trouble falling or staying asleep, or sl eeping too much: Nearly every day Feeling tired or having little energy: N early every day Poor appetite or overeating: Nearly ever y day Feeling bad about yourself o r that you are a failure, or have let yourself or your family down: Several days Trouble concentrating on thi ngs, such as reading the newspaper or watching television: Several days Moving or speaking so slowly that other people could have noticed; or the opposite, being so fidgety or restless that you have been moving around a lot more than usual: Not at all Thoughts that you would be b laura off or of hurting yourself in some way: Several days (Consider Suicide Assessment Risk) Total Score: 15 Interpretation: Moderately Severe Depres linda Intervention Depression Screening Findings: N egative Suicide Risk Assessment Performed: ____ Depression Screening YENI-7 (2018 Edition) Sagar g nervous, anxious, or on edge: Not at all Not being able to stop or control worryi ng: Several days Worrying too much about different things : Several days Trouble relaxing: Several days Being so restless that it is hard to sit still: Not at all Becoming easily annoyed or irritable: Se veral days Feeling afraid as if something awful og ht happen: Not at all If you checked any problems, how difficult have they made it for you to do your work, take care of things at home, or get along with other people?: Somewhat difficult [place]-Suicide Severity Rating Scale Suicide Risk (CSRS-screener) in the past one month Have you wished you were or wished you could go to sleep and not wake up?: Yes in the past one month Have y ou actually had any thoughts of killing yourself?: No Examination Category Sub-Category Detail Notes Category Not es Psychiatry Appearance: well-groomed Attitude: cooperative Psychomotor activity: within normal rang e Abnormal body movements: none Attention: good Degree of awareness of surroundings: wit hin normal limits Orientation: awake, alert and adela ented x 3 Affect / mood: depressed, sad Speech / language: normal rate, volume, and articulation (RVR), clear and coherent, appropriate pitch/modulation Insight: good Judgement: good Thought process: intact Thought content: appropriate Perceptual disorders: no perceptual diso rder noted Suicidal ideation: none Homicidal ideation: none Delusions: no Hallucinations: no
--- OUTSIDE RECORDS SUMMARY | 2024-07-23 10:00 | XMS_ITS | Patient Health Record ---
Author Organization [facility] Address [address] [facility] [address] [place] [address] Care Team Providers Care Pulp Piler Name Role Phone Duarte MCCRARY, Autumn Primary Care Provider Unavailable Iris Arce Unavailable [phone] Allergies Allergen (clinical drug ingredient) Drug/Non Drug Allergy documented on EMR Reaction Allergy Type Onset Date Status doxycycline Doxycycline Unknown Drug Allergy Act michael Substance with sulfonamide structure and antibacterial mechanism of action (substance) Sulfa Antibiotics Unknown Drug Allergy Active Results Component Value Reference Range Notes UDT Reviewed date:03/21/2024 04:03:59 PM Interpretation: Performing Lab: Notes/Report: THC n 0 - 50 ng/ml Cocaine n 0 - 300 ng/ml Amphetamine n 0 - 1000 ng/ml Buprenorphine (BUP) n 0 - 10 ng/ml Secobarbital (Bar) n 0 - 300 ng/ml Oxazepam (BZO) n 0 - 300 ng/ml 7-pyytrbwlij-7,2-biehyvvs-0,3-diphenylpyrrolidine (KATHRINE P) n 0 - 300 ng/ml Methamphetamine (MET) n 0 - 1000 ng/ml Methylenedioxymethamphetamine (MDMA) n 0 - 500 ng/ml Morphine (MOP 300/TGY1213) n 0 - 300 ng/ml Methadone (MTD) n 0 - 300 ng/ml Phencyclidine (PCP) n 0 - 25 ng/ml Propoxyphene (PPX) n 0 - 300 ng/ml Nortriptyline (TCA) n 0 - 1000 ng/ml Oxycodone n 0 - 300 ng/ml Reason For Referral No Information Medications Medication SIG (Take, Route, Frequency, Duration) Notes Start Date End Date Status Restasis 0.05 % Ophthalmic for 90 Days Active Mirtazapine 15 MG 1 tablet at bedtime Orally Once a day for 30 days 07/02/2024 Active Levothyroxine Sodium 50 MCG Oral for 100 Days Active Minocycline HCl 50 MG TAKE 1 CAPSULE BY MOUTH TWICE DAILY Oral for 90 Days Active Gemtesa 75 MG 1 tablet Orally Once a day Active Restasis 0.05 % 1 drop into affected eye Ophthalmic Twice a day Active Escitalopram Oxalate 10 MG 1.5 tablet Or ally Once a day for 30 days Active Social History Tobacco Use: Social History Observation Description Date Details (start date - stop date) Former Smoker NA - 06/11/1988 Sex Assigned At : Social History Observation Description Sex Assigned At Female Tobacco Control (Standard) Question Answer Notes When did you stop smoking? 06/11/1988 Tobacco use: Former smoker How long has it been since you last smoked? 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 [address] [place] [address] 03/21/2024 Iris Arce MDD (major depressiv e disorder), recurrent severe, 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 and YENI (generalized anxiety disorder) F41.1 [facility] [address] [place] [address] 04/21/2024 Iris Arce MDD (major depressiv e disorder), recurrent severe, 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 ; YENI (generalized anxiety disorder) F41.1 and Primary insomnia F51.01 [facility] [address] [facility] [address] [place] [address] 05/21/2024 Iris Arce MDD (major depressiv e disorder), recurrent severe, 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 ; YENI (generalized anxiety disorder) F41.1 and Primary insomnia F51.01 [facility] [place] [address] [facility] [address] [place] [address] 07/02/2024 Iris Claude MDD (major depressiv e disorder), recurrent severe, 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 ; YENI (generalized anxiety disorder) F41.1 and Primary insomnia F51.01 [facility] [address] [facility] [address] [place] [address] 07/02/2024 Iris Arce Assessments Encounter Date Diagnosis (ICD Code) Assessment Notes Treatment Notes Treatment Clinical Notes Section Notes 03/21/2024 YENI (generalized anxiety disorder) (ICD-10 - F41.1) 03/21/2024 MDD (major depressive disorder), recurrent severe, without psychosis (ICD-10 - F33.2) 04/21/2024 MDD (major depressive disorder), recurrent severe, without psychosis (ICD-10 - F33.2) SSRI/SNRI side effects discussed including but not limited to, gastric upset, nausea, vomiting, diarrhea and/or constipation, weight changes, sexual side effects including loss of libido, increased suicidal thoughts/behavior s in children and young adults, and serotonin syndrome. 1. MDD -stop pristiq -start escitalopram 5mg daily -cont counseling 2. YENI -escitalopram 5mg daily -encourage non-pharmaceuti jaya treatments including deep breathing, grounding exercises, physical activity, healthy diet. 3. insomnia -Start trazodone 50mg qHS PRN - KEEP YOUR BEDROOM DARK - GET LOTS OF NATURAL LIGHT IN THE MORNING. - DON'T WORK ON YOUR COMPUTER OR PHONE LATE AT NIGHT. - AVOID NAPS DURING THE DAY. - NO CAFFEINE 3 HOURS OR MORE AFTER WAKE UP TIME. - ONLY USE YOUR BED FOR SLEEPING - GET A RELAXATION ROUTINE BEFORE BED. - IF YOU CAN'T GET TO SLEEP AFTER 15 TO 30 MINUTES GET OUT OF BED AND DO SOMETHING RELAXING. - DON'T DRINK ALCOHOL IN THE EVENING or limit alcohol to 1 drink. 05/21/2024 MDD (major depressive disorder), recurrent severe, without psychosis (ICD-10 - F33.2) SSRI/SNRI side effects discussed including but not limited to, gastric upset, nausea, vomiting, diarrhea and/or constipation, weight changes, sexual side effects including loss of libido, increased suicidal thoughts/behavior s in children and young adults, and serotonin syndrome. 1. MDD Reponding well to escitalopram -INCRESE escitalopram 10mg daily -cont counseling 2. YENI -INCRESE escitalopram 10mg daily -encourage non-pharmaceuti jaya treatments including deep breathing, grounding exercises, physical activity, healthy diet. 3. insomnia -stoptrazodone 50mg qHS PRN -start quetiapine 25-50mg qHS PRN for insomnia - KEEP YOUR BEDROOM DARK - GET LOTS OF NATURAL LIGHT IN THE MORNING. - DON'T WORK ON YOUR COMPUTER OR PHONE LATE AT NIGHT. - AVOID NAPS DURING THE DAY. - NO CAFFEINE 3 HOURS OR MORE AFTER WAKE UP TIME. - ONLY USE YOUR BED FOR SLEEPING - GET A RELAXATION ROUTINE BEFORE BED. - IF YOU CAN'T GET TO SLEEP AFTER 15 TO 30 MINUTES GET OUT OF BED AND DO SOMETHING RELAXING. - DON'T DRINK ALCOHOL IN THE EVENING or limit alcohol to 1 drink.. Patient had reduction in suicidal ideation and/or behavior upon follow-up assessment within 120 days of index assessment (M1357) 07/02/2024 MDD (major depressive disorder), recurrent severe, without psychosis (ICD-10 - F33.2) SSRI/SNRI side effects discussed including but not limited to, gastric upset, nausea, vomiting, diarrhea and/or constipation, weight changes, sexual side effects including loss of libido, increased suicidal thoughts/behavior s in children and young adults, and serotonin syndrome. 05/21/2024 YENI (generalized anxiety disorder) (ICD-10 - F41.1) 1. MDD Reponding well to escitalopram -INCRESE escitalopram 10mg daily -cont counseling 2. YENI -INCRESE escitalopram 10mg daily -encourage non-pharmaceuti jaya treatments including deep breathing, grounding exercises, physical activity, healthy diet. 3. insomnia -stoptrazodone 50mg qHS PRN -start quetiapine 25-50mg qHS PRN for insomnia - KEEP YOUR BEDROOM DARK - GET LOTS OF NATURAL LIGHT IN THE MORNING. - DON'T WORK ON YOUR COMPUTER OR PHONE LATE AT NIGHT. - AVOID NAPS DURING THE DAY. - NO CAFFEINE 3 HOURS OR MORE AFTER WAKE UP TIME. - ONLY USE YOUR BED FOR SLEEPING - GET A RELAXATION ROUTINE BEFORE BED. - IF YOU CAN'T GET TO SLEEP AFTER 15 TO 30 MINUTES GET OUT OF BED AND DO SOMETHING RELAXING. - DON'T DRINK ALCOHOL IN THE EVENING or limit alcohol to 1 drink.. Patient had reduction in suicidal ideation and/or behavior upon follow-up assessment within 120 days of index assessment ([id number]) 07/02/2024 YENI (generalized anxiety disorder) (ICD-10 - F41.1) 04/21/2024 Primary insomnia (ICD-10 - F51.01) 1. MDD -stop pristiq -start escitalopram 5mg daily -cont counseling 2. YENI -escitalopram 5mg daily -encourage non-pharmaceuti jaya treatments including deep breathing, grounding exercises, physical activity, healthy diet. 3. insomnia -Start trazodone 50mg qHS PRN - KEEP YOUR BEDROOM DARK - GET LOTS OF NATURAL LIGHT IN THE MORNING. - DON'T WORK ON YOUR COMPUTER OR PHONE LATE AT NIGHT. - AVOID NAPS DURING THE DAY. - NO CAFFEINE 3 HOURS OR MORE AFTER WAKE UP TIME. - ONLY USE YOUR BED FOR SLEEPING - GET A RELAXATION ROUTINE BEFORE BED. - IF YOU CAN'T GET TO SLEEP AFTER 15 TO 30 MINUTES GET OUT OF BED AND DO SOMETHING RELAXING. - DON'T DRINK ALCOHOL IN THE EVENING or limit alcohol to 1 drink. 04/21/2024 YENI (generalized anxiety disorder) (ICD-10 - F41.1) 1. MDD -stop pristiq -start escitalopram 5mg daily -cont counseling 2. YENI -escitalopram 5mg daily -encourage non-pharmaceuti jaya treatments including deep breathing, grounding exercises, physical activity, healthy diet. 3. insomnia -Start trazodone 50mg qHS PRN - KEEP YOUR BEDROOM DARK - GET LOTS OF NATURAL LIGHT IN THE MORNING. - DON'T WORK ON YOUR COMPUTER OR PHONE LATE AT NIGHT. - AVOID NAPS DURING THE DAY. - NO CAFFEINE 3 HOURS OR MORE AFTER WAKE UP TIME. - ONLY USE YOUR BED FOR SLEEPING - GET A RELAXATION ROUTINE BEFORE BED. - IF YOU CAN'T GET TO SLEEP AFTER 15 TO 30 MINUTES GET OUT OF BED AND DO SOMETHING RELAXING. - DON'T DRINK ALCOHOL IN THE EVENING or limit alcohol to 1 drink. 07/02/2024 Primary insomnia (ICD-10 - F51.01) 05/21/2024 Primary insomnia (ICD-10 - F51.01) 1. MDD Reponding well to escitalopram -INCRESE escitalopram 10mg daily -cont counseling 2. YENI -INCRESE escitalopram 10mg daily -encourage non-pharmaceuti jaya treatments including deep breathing, grounding exercises, physical activity, healthy diet. 3. insomnia -stoptrazodone 50mg qHS PRN -start quetiapine 25-50mg qHS PRN for insomnia - KEEP YOUR BEDROOM DARK - GET LOTS OF NATURAL LIGHT IN THE MORNING. - DON'T WORK ON YOUR COMPUTER OR PHONE LATE AT NIGHT. - AVOID NAPS DURING THE DAY. - NO CAFFEINE 3 HOURS OR MORE AFTER WAKE UP TIME. - ONLY USE YOUR BED FOR SLEEPING - GET A RELAXATION ROUTINE BEFORE BED. - IF YOU CAN'T GET TO SLEEP AFTER 15 TO 30 MINUTES GET OUT OF BED AND DO SOMETHING RELAXING. - DON'T DRINK ALCOHOL IN THE EVENING or limit alcohol to 1 drink.. Patient had reduction in suicidal ideation and/or behavior upon follow-up assessment within 120 days of index assessment (M1357) 03/21/2024 Other Start desvenlafaxine 25mg daily for mood Patient educated on all medications including potential benefits, side effects, risks. Educated on proper dosing schedule and importance of compliance. Consider adding mirtazapine if weight loss continues. Continue individual counseling. 04/21/2024 Other Stop Pristiq due to inefffectiveness, side effects Start escitalopram 5mg daily for mood, anxiety Start Trazodone 50mg qHS for insomnia. Patient educated on all medications including potential benefits, side effects, risks. Educated on proper dosing schedule and importance of compliance. Continue counseling. 1. MDD -stop pristiq -start escitalopram 5mg daily -cont counseling 2. YENI -escitalopram 5mg daily -encourage non-pharmaceuti jaya treatments including deep breathing, grounding exercises, physical activity, healthy diet. 3. insomnia -Start trazodone 50mg qHS PRN - KEEP YOUR BEDROOM DARK - GET LOTS OF NATURAL LIGHT IN THE MORNING. - DON'T WORK ON YOUR COMPUTER OR PHONE LATE AT NIGHT. - AVOID NAPS DURING THE DAY. - NO CAFFEINE 3 HOURS OR MORE AFTER WAKE UP TIME. - ONLY USE YOUR BED FOR SLEEPING - GET A RELAXATION ROUTINE BEFORE BED. - IF YOU CAN'T GET TO SLEEP AFTER 15 TO 30 MINUTES GET OUT OF BED AND DO SOMETHING RELAXING. - DON'T DRINK ALCOHOL IN THE EVENING or limit alcohol to 1 drink. 05/21/2024 Other Inrease escitalopram to 10mg daily for mood, anxiety. Start quetiapine 25-50mg qHS PRN for insomnia. Patient educated on all medications including potential [...] of psychotropic medications. -Crisis prevention hotline 988. 1. MDD Reponding well to escitalopram -INCRESE escitalopram 10mg daily -cont counseling 2. YENI -INCRESE escitalopram 10mg daily -encourage non-pharmaceuti jaya treatments including deep breathing, grounding exercises, physical activity, healthy diet. 3. insomnia -stoptrazodone 50mg qHS PRN -start quetiapine 25-50mg qHS PRN for insomnia - KEEP YOUR BEDROOM DARK - GET LOTS OF NATURAL LIGHT IN THE MORNING. - DON'T WORK ON YOUR COMPUTER OR PHONE LATE AT NIGHT. - AVOID NAPS DURING THE DAY. - NO CAFFEINE 3 HOURS OR MORE AFTER WAKE UP TIME. - ONLY USE YOUR BED FOR SLEEPING - GET A RELAXATION ROUTINE BEFORE BED. - IF YOU CAN'T GET TO SLEEP AFTER 15 TO 30 MINUTES GET OUT OF BED AND DO SOMETHING RELAXING. - DON'T DRINK ALCOHOL IN THE EVENING or limit alcohol to 1 drink.. Patient had reduction in suicidal ideation and/or behavior upon follow-up assessment within 120 days of index assessment (M1357) 07/02/2024 Other Increase escitalopram to 15mg daily [...] effects of psychotropic medications. -Crisis prevention hotline 628. Plan Of Treatment Next Appt Details Provider Name:Iris Arce, 08/04/2024 03:30:00 PM, [address], [facility] [address], [place], [address], Insurance Providers Payer Name Payer Address Payer Phone Subscriber Number Group Number Insured Name Patient Relationship to Insured Coverage Start Date Coverage End Date [facility] [address] [place] [address] [id number] Caitlyn Mane Self - patient is the insured Medical (General) History Medical History History ICD Code Past Psychiatric History: Major Depressi ve Episode abdominal aortic aneurysm: No atrial fibrillation: No chronic fatigue syndrome: Yes essential tremor: No hyperlipidemia: Yes hypertension: Yes Parkinson's disease: No restless leg syndrome: Yes stroke: No subdural hematoma: No type 1 diabetes mellitus: No type 2 diabetes mellitus: No vitamin B12 deficiency: No vitamin D deficiency: Yes Surgical History Surgery Date(Month/Year) miscarriage, d&c 03/11/1985 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
--- OUTSIDE RECORDS SUMMARY | 2024-07-23 10:00 | XMS_ITS ---
Author Organization [facility] [employer] Address [address] [facility] [address] [place] [address] Care Team Providers Care Ship'S Captain Name Role Phone Duarte MCCRARY, Autumn Primary Care Provider Unavailable Iris Arce Unavailable [phone] Allergies Allergen (clinical drug ingredient) Drug/Non Drug Allergy documented on EMR Reaction Allergy Type Onset Date Status doxycycline Doxycycline Unknown Drug Allergy Act michael Substance with sulfonamide structure and antibacterial mechanism of action (substance) Sulfa Antibiotics Unknown Drug Allergy Active REASON FOR VISIT follow up Medications Medication SIG (Take, Route, Frequency, Duration) Notes Start Date End Date Status Minocycline HCl 50 MG TAKE 1 CAPSULE BY MOUTH TWICE DAILY Oral for 90 Days Active QUEtiapine Fumarate 25 MG 1-2 tablet Oral Once a day for 30 days 05/21/2024 Active Restasis 0.05 % Ophthalmic for 90 Days Active Levothyroxine Sodium 50 MCG Oral for 100 Days Active Gemtesa 75 MG 1 tablet Orally Once a day Active Escitalopram Oxalate 10 MG 1 tablet Orally Once a day for 30 days cancel any remaining 5mg scripts please Active Restasis 0.05 % 1 drop into [...] points) Encounters Encounter Location Date Provider Diagnosis [facility] [employer] [facility] [address] [address] 05/21/2024 Iris Arce MDD (major depressiv e disorder), recurrent severe, 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 ; YENI (generalized anxiety disorder) F41.1 and Primary insomnia F51.01 Assessments Encounter Date Diagnosis (ICD Code) Assessment Notes Treatment Notes Treatment Clinical Notes Section Notes 05/21/2024 MDD (major depressive disorder), recurrent severe, without psychosis (ICD-10 - F33.2) SSRI/SNRI side effects discussed including but not limited to, gastric upset, nausea, vomiting, diarrhea and/or constipation, weight changes, sexual side effects including loss of libido, increased suicidal thoughts/behavi ors in children and young adults, and serotonin [...] within 120 days of index assessment (M1357) 05/21/2024 YENI (generalized anxiety disorder) (ICD-10 - [...] within 120 days of index assessment (M1357) 05/21/2024 Primary insomnia (ICD-10 - F51.01) 1. [...] within 120 days of index assessment (M1357) 05/21/2024 Other Inrease escitalopram to 10mg daily [...] within 120 days of index assessment (M1357) Plan Of Treatment Medication Medication Name Sig Start Date Stop Date Notes QUEtiapine Fumarate 25 MG 1-2 tablet Oral Once a day for 30 days 05/21/2024 Escitalopram Oxalate 10 MG 1 tablet Orally Once a day for 30 days cancel any remaining 5mg scripts please traZODone HCl 50 MG 1 tablet at bedtime as needed Orally Once a day for 30 days Treatment Notes Assessment Notes MDD (major depressive disord er), recurrent severe, without psychosis SSRI/SNRI side effects discussed includi ng but not limited to, gastric upset, nausea, vomiting, diarrhea and/or constipation, weight changes, sexual side effects including loss of libido, increased suicidal thoughts/behaviors in children and young adults, and serotonin syndrome. Other Inrease escitalopram to 10mg daily for mood, anxiety. Start quetiapine 25-50mg qHS PRN for insomnia. Patient educated on all medications including potential benefits, side effects, risks. Educated on proper dosing schedule and importance of compliance. Next Appt Details Follow Up: 6 Weeks, Reason: medication follow up Provider Name:Iris Arce, 08/04/2024 03:30:00 PM, [address], [address], [place], [address], Progress Notes * Caitlyn MANEDOB:1960 (64 yo F)Acc No.[id number]:05/21/2024 Patient: Caitlyn NUNEZ Provider: HAILEE PEREZ :1960 A ge:64 Y S ex:Female Date:05/21/2024 Phone: [place] [place] [id number] Pcp:Autumn Zhu Subjective: * Chief Complaints: * F ollow up * HPI: P ast Psychiatric Hospitalizations: Previous psychiatric hospitalizations P revious Psychiatric Hospitalization N o. P ast History of Suicidal attempt H ave you ever attempted suicide in the past N o. Social hx: . 3 estranged children. 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, overactive bladder, HTN, chronic [...] d enies . P [facility] . Here for follow up. Escitalopram started last apt, pristiq discontinued. Reports overall depression is improving. Denies feeling hopeless or helpless. Motivation is low. Denies suicidal ideation. Had a good Thanksgiving with her family. Anxiety is about the same. Denies recent panic attacks. Denies side effects to medication. Sleep- trazodone caused hangover drowsiness, getting about 5-7 hours nightly. Energy level is low.? Appetite is good. D epression Screening: YENI-7 (2018 Edition) F eeling nervous, anxious, or on edge?Several days, N ot being able to stop or control worrying S everal days, W orrying too much about different things S everal days, T rouble relaxing S everal days, B eing so restless that it is hard to sit still N ot at all, B ecoming easily annoyed or irritable S everal days, F eeling afraid as if something [...] go to sleep and not wake up? N o, i n the past one month Have you actually had any thoughts of killing yourself? N o. D epression screening: PHQ-9 L ittle interest or pleasure in doing things S everal days, F eeling down, depressed, or hopeless S everal days, T rouble falling or staying asleep, or sleeping too much S everal days, F eeling tired or having little energy S everal days, P oor appetite or overeating S everal days, F eeling bad about yourself or that you are a failure, or have let yourself or your family down N ot at all, T rouble concentrating on things, such as reading the newspaper or watching television N ot at all, M oving or speaking so slowly that other people could have noticed; or the opposite, being so fidgety or restless that you have been moving around a lot more than usual N ot at all, T houghts that you would be better off or of hurting yourself in some way N ot at all, T otal Score 5, I nterpretation M ild Depression. I ntervention D epression Screening Findings?Positve, F ollow-Up for Depression M ental health treatment assessment, Patient follow-up to return when and if necessary, S uicide Risk Assessment Performed 1 07/22/2023, A dditional Evaluation for Depression P sychiatric interview and evaluation, N raz of the standardized tool used for adult depression screening: [facility] (PHQ-9). * ROS: G eneral / Constitutional: Patient denies h eadache, lightheadedness, weight loss.?Patient complains of c hange in appetite,weight gain. Junior pulliam S HPI for details. P sychiatric: Patient denies a uditory / visual hallucinations, delusions, suicidal thoughts, antonino, psychosis, panic attacks, difficulty concentrating. P atient complains of a nxiety,depressed mood. Junior pulliam S HPI for details. * Medical History: * Surgical History: liliana mcgregor&c 03/11/1985Splenectomy 11/19/1990sinus surgery 01/03/1998breast reduction 10/05/1999lasik 01/25/2002sinus [...] aternal Grandmother: None. B rother: None.?Sister: None. Liliana rodney: None. * Social History: T obacco Use: [...] (2 points). 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 Safety issues A re there any firearms in the house??Yes. A dvance Care Planning A re you your own decision-maker Y es, D o you have Power of Platen Drier Operator for Health or Medical? N o. S ocial History: H james M arital Status: M arried, N umber of Adults in household: 2 , N umber of Children in Household: 0 , L evel of Education: [employer]/Masters/PhD. * Medications: T akingRestasis 0.05 % Emulsion 1 drop into affected eye Ophthalmic Twice a day Gemtesa 75 MG Tablet 1 tablet Orally Once a day Minocycline HCl 50 MG Capsule TAKE 1 CAPSULE BY MOUTH TWICE DAILY Oral Levothyroxine Sodium 50 MCG Tablet Oral Restasis 0.05 % Emulsion Ophthalmic traZODone HCl 50 MG Tablet 1 tablet at bedtime as needed Orally Once a day Escitalopram Oxalate 5 MG Tablet 1 tablet Orally Once a day Taking Restasis 0.05 % Emulsion 1 drop into affected eye Ophthalmic Twice a day Taking Gemtesa 75 MG Tablet 1 tablet Orally Once a day Taking Minocycline HCl 50 MG Capsule TAKE 1 CAPSULE BY MOUTH TWICE DAILY Oral Taking Levothyroxine Sodium 50 MCG Tablet Oral Taking Restasis 0.05 % Emulsion Ophthalmic Taking traZODone HCl 50 MG Tablet 1 tablet at bedtime as needed Orally Once a day Taking Escitalopram Oxalate 5 MG Tablet 1 tablet Orally Once a day DiscontinuedLisinopril 2.5 MG Tablet Oral Medication List reviewed and reconciled with the patientDiscontinued Lisinopril 2.5 MG Tablet Oral Medication List reviewed and reconciled with the patient * Allergies: S ulfa AntibioticsDoxycyclineno[Allergies Verified] Objective: * Vitals: * Examination: [...] 3 . P rimary insomnia - F51.01 1. MDD Reponding well to escitalopram -INCRESE escitalopram 10mg daily -cont counseling 2. YENI -INCRESE escitalopram 10mg daily -encourage non-pharmaceutical treatments including deep breathing, grounding exercises, physical [...] within 120 days of index assessment (M1357) Plan: * Treatment: 2. P rimary insomnia Stop traZODone HCl Tablet, 50 MG, 1 tablet at bedtime as needed, Orally, Once a day, 30 days, 30;?Start QUEtiapine Fumarate Tablet, 25 MG, 1-2 tablet, Oral, Once a day, 30 days, 60 Tablet, Refills 2. 3. O thers Notes: Inrease escitalopram to 10mg daily for mood, [...] of psychotropic medications. -Crisis prevention hotline 988. * Procedure Codes: M 1357 Pt w/red suic idea 120 [id number] BEHAV ASSMT W/SCORE & DOCD/STAND [id number] VISIT COMPLEXITY INHERENT TO ONGOING CARE RELATED TO A PATIENT'S SINGLE, SERIOUS CONDITION OR A COMPLEX [id number] CLIN DEPRESSION SCREEN DOC * Follow Up: 6 Weeks (Reason: medication follow up) * Billing Information: * Visit Code: 14108 OFFICE OUTPATIENT VISIT 25 MINUTES DETAILED HISTORY AND EXAM/MODERATE MEDICAL DECISION MAKING. * Procedure Codes: M1357 Pt w/red suic idea 120 days. 23058 BEHAV ASSMT W/SCORE & DOCD/STAND INSTRUMENT. G2211 VISIT COMPLEXITY INHERENT TO ONGOING CARE RELATED TO A PATIENT'S SINGLE, SERIOUS CONDITION OR A COMPLEX CONDITION. G8431 CLIN DEPRESSION SCREEN DOC. * RAL OFFICE INSTALLER Sign off status: Completed true * Provider: HAILEE PEREZ Date: 1 07/22/2023 Generated for Kelly rai/Klever/Leeann on: 0 07/23/2024 10:00 AM CENTRAL OFFICE INSTALLER History and Physical Notes * HPI (History of Present Illness) Category Sub-Category Detail Notes Category Not es History of Presenting Problem Anxiety Rates anxiety 5/10 with 10 b eing most severe. Denies recent panic attacks. Here for follow up. Escitalopram started last apt, pristiq discontinued. Reports overall depression is improving. Denies feeling hopeless or helpless. Motivation is low. Denies suicidal ideation. Had a good Thanksgiving with her family. Anxiety is about the same. Denies recent panic attacks. Denies side effects to medication. Sleep- trazodone caused hangover drowsiness, getting about 5-7 hours nightly. Energy level is low. Appetite is good. Depression Rates depression 5/1 0 with 10 being most severe. Denies SI. Suicidal ideation denies Sleep disturbance with a history of sl eep apnea- off CPAP Psychosis no hx psychosis Mood lability no antonino Psychotherapy Xiao Partida at [facility] Medication Side Effects none Past Psychiatric Hospitalizations Previous psychiatric hospitalizations Previous Psychiatric Hospitalization: No Social hx: . 3 estranged children. 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, overactive bladder, HTN, chronic [...] inte rest or pleasure in doing things: Several days Feeling down, depressed, or hopeless: Se veral days Trouble falling or staying asleep, or sl eeping too much: Several days Feeling tired or having little energy: S everal days Poor appetite or overeating: Several day s Feeling bad about yourself o r that you are a failure, or have let yourself or your family down: Not at all Trouble concentrating on thi ngs, such as reading the newspaper or watching television: Not at all Moving or speaking so slowly that other people could have noticed; or the opposite, being so fidgety or restless that you have been moving around a lot more than usual: Not at all Thoughts that you would be b laura off or of hurting yourself in some way: Not at all Total Score: 5 Interpretation: Mild Depression Intervention Depression Screening Findings: P ositve Follow-Up for Depression: [facility] treatment assessment, Patient follow-up to return when and if necessary Suicide Risk Assessment Performed: 05/21 Additional Evaluation for Depression: Ps ychiatric interview and evaluation Name of the standardized too l used for adult depression screening:: Patient Health Questionnaire (PHQ-9) Depression Screening YENI-7 (2018 Edition) Feelin g nervous, anxious, or on edge: Several days Not being able to stop or control [...] get along with other people?: Somewhat difficult [place]-Suicide Severity Rating Scale Suicide Risk (CSRS-screener) in the past one month Have you wished you were or wished you could go to sleep and not wake up?: No in the past one month Have y [...]
--- OUTSIDE RECORDS SUMMARY | 2024-07-23 10:00 | XMS_ITS ---
Author Organization [facility] [employer] [facility] Address [address] [place] [address] Care Team Providers Care Social Worker Psychiatric Name Role Phone Duarte MCCRARY, Autumn Primary Care Provider Unavailable Iris Arce Unavailable [phone] REASON FOR VISIT Waiting for call back Social History Sex Assigned At : Social History Observation Description Sex Assigned At Female Encounters Encounter Location Date Provider Diagnosis [facility] [employer] [facility] [address] [facility] [address] [place] [address] 07/02/2024 Iris Arce Plan Of Treatment Next Appt Details Provider Name:Iris Arce, 08/04/2024 03:30:00 PM, [address], [address], [place], [address], Progress Notes * ALHAJI LeodanbrendaDOB:1960 (64 yo F)Acc No.[id number]:07/02/2024 Patient: Caitlyn NUNEZ :1960 A ge:64 Y S ex:Female Phone: Address:[address], [address] * true * Date: Generated for Phillipi ng/Fajessicag/eTransmitting on: 0 07/23/2024 09:59 AM TAPE KELLER OPERATOR
--- OUTSIDE RECORDS SUMMARY | 2024-07-23 10:00 | XMS_ITS | Clinical Summary ---
Author Organization [facility] Address [address] [place] [address] Care Team Providers Care Coiled Tubing Operator Name Role Phone Autumn Ramachandran MD Primary Care Provider Allergies Active Allergy Reactions Criticality Noted Date Comments Doxycycline Other (See comments) Low 02/20/2020 Sun sensitivity Sulfa (Sulfonamide Antibiotics) Hives Medium 02/20/2020 Medications atorvastatin (LIPITOR) 10 mg tablet 0 Active citalopram (CeleXA) 40 mg tablet TK 1 T PO QD 0 Active folic acid (FOLVITE) 1 mg tablet 0 Active levothyroxine (SYNTHROID) 50 mcg tablet 0 Active minocycline (MINOCIN,DYNACIN) 50 mg capsule [address] (PROTONIX) 40 mg EC tablet 0 Active pregabalin (LYRICA) 300 mg capsule 0 Active pregabalin (LYRICA) 50 mg capsule 0 Active quinapriL (ACCUPRIL) 10 mg tablet Take 10 mg by mouth nightly Active meloxicam (MOBIC) 7.5 mg tablet 1 Active methotrexate, PF, 25 mg/mL preservative free injection 1 Active insulin syringe-needle U-100 1 mL 31 gauge x 5/16 syringe USE DIRECTED ONCE WEEKLY 1 Active predniSONE (DELTASONE) 5 mg tablet Active liothyronine (CYTOMEL) 5 mcg tablet 5 mcg 2 (two) times a day Active Active Problems No known active problems Surgical History Surgery Date Site/Laterality Comments DILATION AND CURETTAGE OF UTERUS SPLENECTOMY SINUS SURGERY BREAST SURGERY LASIK ENDOMETRIAL ABLATION Medical History Medical History Date Comments Allergic rhinitis Autoimmune disease (CMS/HCC) (HCC) Depression Hypertension Chronic bronchitis (HCC) Sinusitis Thyroid disease Tinnitus Rheumatoid arthritis (HCC) Family History Medical History Relation Name Comments Cancer Father Cancer Maternal Grandmother Macular degeneration Mother Parkinsonism Mother Relation Name Status Comments Father Maternal Grandmother Mother Social History Tobacco Use Types Packs/Day Years Used Date Smoking Tobacco: Former Smokeless Tobacco: Never Comments:quit smoking in 198 9 Alcohol Use Standard Drinks/Week Comments Yes 0 (1 standard drink = 0.6 oz pur e alcohol) Personal Safety Answer Date Recorded Getting School Help Needed Not on file 08/24 Comments Unknown Sex and Gender Information Value Date Recorded Sex Assigned at Not on file Legal Sex Female 8:27 PM EXPERT MEDICAL WRITER Gender Identity Not on file Sexual Orientation Not on file Obstetrics History Last Filed Vital Signs Vital Sign Reading Time Taken Comments Blood Pressure 151/84 07/07/2020 9:16 AM EXPERT MEDICAL WRITER Pulse 54 07/07/2020 9:16 AM EXPERT MEDICAL WRITER Temperature 36.5 C (97.7 F) 07/07/2020 9:16 AM EXPERT MEDICAL WRITER Respiratory Rate - - Oxygen Saturation 96% 03/28/2020 6:02 PM CDT Inhaled Oxygen Concentration - - Weight 84.6 kg (186 lb 9.6 oz) 07/07/2020 9:16 A M EXPERT MEDICAL WRITER Height 154.9 cm (5' 1 ) 07/07/2020 9:16 AM EXPERT MEDICAL WRITER Body Mass Index 35.26 07/07/2020 9:16 AM EXPERT MEDICAL WRITER Plan of Treatment Not on file Insurance [employer] Advance Directives For more information, please contact: [phone] Documents on File Type Date Recorded Patient Bilingual [employer] Teacher Expl anation ADVANCE DIRECTIVE 04/05/2020 12:00 AM [place] [facility] OF TRAINING SPECIALIST FINANCIAL/MEDICAL ADVANCE DIRECTIVE 04/05/2020 12:00 AM VERONIQUE ING WILL Care Teams Coiled Tubing Operator Relationship Specialty Start Date End Date Autumn Ramachandran MD PCP - General Family Practice 02/04/20
--- OUTSIDE RECORDS SUMMARY | 2024-07-23 10:00 | XMS_ITS | Referral Summary ---
Author Organization [facility] Address [address] [place] [address] Care Team Providers Care Metal Fabricating Supervisor Name Role Phone Autumn Ramacahndran MD Primary Care Provider Allergies Active Allergy [...] Active Active Problems No known active problems Social History Tobacco Use Types Packs/Day Years [...] on file Legal Sex Female 8:27 PM CIGARETTE MACHINE OPERATOR Gender Identity Not on file Sexual Orientation Not on file Last Filed Vital Signs Vital Sign Reading Time Taken Comments Blood Pressure 151/84 07/07/2020 9:16 AM CIGARETTE MACHINE OPERATOR Pulse 54 07/07/2020 9:16 AM CIGARETTE MACHINE OPERATOR Temperature 36.5 C (97.7 F) 07/07/2020 9:16 AM CIGARETTE MACHINE OPERATOR Respiratory Rate - - Oxygen Saturation 96% 03/28/2020 6:02 PM CDT Inhaled Oxygen Concentration - - Weight 84.6 kg (186 lb 9.6 oz) 07/07/2020 9:16 A M CIGARETTE MACHINE OPERATOR Height 154.9 cm (5' 1 ) 07/07/2020 9:16 AM CIGARETTE MACHINE OPERATOR Body Mass Index 35.26 07/07/2020 9:16 AM CIGARETTE MACHINE OPERATOR Plan of Treatment Not on file Insurance MEDICARE [employer]IONS [facility] MEDICARE Address: [facility] [address] [place] [address] MEDICARE [employer]UTIONS Advance Directives For more information, please contact: [phone] Documents on File Type Date Recorded Patient Marketing Account Manager Expl anation ADVANCE DIRECTIVE 04/05/2020 12:00 AM POW ER OF INDUSTRIAL AUTOMATION ENGINEER FINANCIAL/MEDICAL ADVANCE DIRECTIVE 04/05/2020 12:00 AM VERONIQUE ING WILL Care Teams Metal Fabricating Supervisor Relationship Specialty Start Date End Date Autumn Ramachandran MD PCP - General Family Practice 02/04/20
== END 2024-07-23 09:23 | disposition home or self-care (01) ==
LOC: ANHIMG 09:23
PROVIDERS: PCP Family Medicine; Visit Provider Family Medicine
DX: Z12.31 Encounter for screening mammogram for malignant neoplasm of breast (principal)
CPT/HCPCS: 77063; 77067

== ENCOUNTER 2024-09-03 16:15 | Outpatient (CLI) | payer MEDICARE, SELFPAY ==
--- NOTE | ~2024-09-03 | CT_ITS ---
EXAMINATION:CT diagnostic chest wo con DATE: 09/03/2024 16:30 INDICATION: Lung nodule. TECHNIQUE: Computed tomography (CT) of the chest was performed without intravenous contrast. Automate d exposure control and iterative reconstruction technique were employed. The dose-length product (DLP ) was 81.59 mGy-cm. COMPARISON: Chest CT 07/26/2023, 06/22/22 FINDINGS: There is mild atelectasis bilaterally. A calcified right lung nodule and calcified right hi lar lymph nodes are consistent with old granulomatous disease. There is an 11 mm nodule in right midd le lobe. No pleural effusion. The heart size is normal. There are coronary artery calcifications. No pericardial effusion. There is splenosis in left upper quadrant. There is severe thoracic spondylosis . IMPRESSION: 1. 11 mm pulmonary nodule, stable from 06/22/2022, likely benign. Reviewed, dictated and finalized at location A.
--- OUTSIDE RECORDS SUMMARY | 2024-09-03 17:07 | XMS_ITS | Patient Health Record ---
Author Organization [facility] As [place] Address [address] [facility] [address] [place] [address] Care Team Providers Care Awning Assembler Name Role Phone Duarte MCCRARY, Autumn Primary Care Provider Unavailable Iris Arce Unavailable [phone] Allergies Allergen (clinical drug ingredient) Drug/Non Drug [...] Oxazepam (BZO) n 0 - 300 ng/ml 2-bvldsxqsfo-4,7-nftyysql-1,3-diphenylpyrrolidine (KATHRINE P) n 0 - 300 ng/ml Methamphetamine (MET) n 0 - 1000 ng/ml Methylenedioxymethamphetamine (MDMA) n 0 - 500 ng/ml Morphine (MOP 300/[id number]) n 0 - 300 ng/ml Methadone (MTD) n 0 - 300 ng/ml Phencyclidine (PCP) n 0 - 25 ng/ml Nortriptyline (TCA) n 0 - 1000 ng/ml Oxycodone n 0 - 300 ng/ml x n 0 - 300 ng/ml Reason For Referral No Information Medications Medication SIG (Take, Route, Frequency, Duration) Notes Start Date End Date Status Escitalopram Oxalate 20 MG 1 tablet Oral ly Once a day for 30 days Active Gemtesa 75 MG 1 tablet Orally Once a day Active Restasis 0.05 % 1 drop into affected eye Ophthalmic Twice a day Active Minocycline HCl 50 MG TAKE 1 CAPSULE BY MOUTH TWICE DAILY Oral for 90 Days Active Doxepin HCl 25 MG 1 capsule at bedtime Orally Once a day for 30 days 09/01/2024 Active Restasis 0.05 % Ophthalmic for 90 Days Active Levothyroxine Sodium 50 MCG Oral for 100 Days Active Social History Tobacco Use: Social History [...] W/U Status Risk Notes Problem Primary insomnia (1409147) Primary insomnia (F51.01) Active confirmed Problem [id number] YENI (generalized anxiety disorder) (F41.1) Active confirmed Problem 55089387 MDD (major depressive disorder), recurrent severe, 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) Active confirmed Vital Signs Heart Rate 54 /min 08/04/2024 Height-cm 152.4 cm 08/04/2024 Blood pressure diastolic 71 mm Hg 08/04/2024 Weight-kg 75.3 kg 08/04/2024 Height 60 in 08/04/2024 Blood pressure systolic 123 mm Hg 08/04/2024 Weight 166 lbs 08/04/2024 BMI 32.42 kg/m2 08/04/2024 Encounters Encounter Location Date Provider Diagnosis [email or web address] [address] [facility] [address] [place] [address] 03/21/2024 Iris Claude MDD (major depressiv e disorder), recurrent severe, 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 and YENI (generalized anxiety disorder) F41.1 [facility] [address] [facility] [address] [facility] [address] [place] [address] 04/21/2024 Iris Claude MDD (major depressiv e disorder), recurrent severe, 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 ; YENI (generalized anxiety disorder) F41.1 and Primary insomnia F51.01 [facility] [employer] [place] [address] [address] 05/21/2024 Iris Claude MDD (major depressiv e disorder), recurrent severe, 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 ; YENI (generalized anxiety disorder) F41.1 and Primary insomnia F51.01 [facility] [place] [address] [address] 07/02/2024 Iris Claude MDD (major depressiv e disorder), recurrent severe, 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 ; YENI (generalized anxiety disorder) F41.1 and Primary insomnia F51.01 [facility] [address] [address] 08/04/2024 Iris Arce MDD (major depressiv e disorder), recurrent severe, 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 ; YENI (generalized anxiety disorder) F41.1 and Primary insomnia F51.01 [facility] [employer] [place] [address] [facility] [address] [address] 09/01/2024 Iirs Arce Encounter for screening for depression Z13.31 ; MDD (major depressive disorder), recurrent severe, 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 ; YENI (generalized anxiety disorder) F41.1 and Primary insomnia F51.01 [facility] [place] [address] [facility] [address] [address] 07/02/2024 Iris Arce Assessments Encounter Date Diagnosis (ICD Code) Assessment Notes Treatment Notes Treatment Clinical Notes Section Notes 04/21/2024 MDD (major depressive disorder), recurrent severe, [...] or limit alcohol to 1 drink. 07/02/2024 MDD (major depressive disorder), recurrent severe, without psychosis (ICD-10 - F33.2) SSRI/SNRI side effects discussed including but not limited to, gastric upset, nausea, vomiting, diarrhea and/or constipation, weight changes, sexual side effects including loss of libido, increased suicidal thoughts/behavior s in children and young adults, and serotonin syndrome. 08/04/2024 MDD (major depressive disorder), recurrent severe, without psychosis (ICD-10 - F33.2) SSRI/SNRI side effects discussed including but not limited to, gastric upset, nausea, vomiting, diarrhea and/or constipation, weight changes, sexual side effects including loss of libido, increased suicidal thoughts/behavior s in children and young adults, and serotonin syndrome. 09/01/2024 Encounter for screening for depression (ICD-10 - Z13.31) 05/21/2024 MDD (major depressive disorder), recurrent severe, [...] 120 days of index assessment (M1357) 03/21/2024 YENI (generalized anxiety disorder) (ICD-10 - F41.1) 03/21/2024 MDD (major depressive disorder), recurrent severe, without psychosis (ICD-10 - F33.2) 09/01/2024 MDD (major depressive disorder), recurrent severe, without psychosis (ICD-10 - F33.2) SSRI/SNRI side effects discussed including but not limited to, gastric upset, nausea, vomiting, diarrhea and/or constipation, weight changes, sexual side effects including loss of libido, increased suicidal thoughts/behavior s in children and young adults, and serotonin syndrome. 07/02/2024 YENI (generalized anxiety disorder) (ICD-10 - F41.1) 08/04/2024 YENI (generalized anxiety disorder) (ICD-10 - F41.1) [...] or limit alcohol to 1 drink. 05/21/2024 YENI (generalized anxiety disorder) (ICD-10 - [...] 120 days of index assessment (M1357) 07/02/2024 Primary insomnia (ICD-10 - F51.01) 08/04/2024 Primary insomnia (ICD-10 - F51.01) 05/21/2024 Primary [...] within 120 days of index assessment (M1357) 09/01/2024 YENI (generalized anxiety disorder) (ICD-10 - F41.1) 09/01/2024 Primary insomnia (ICD-10 - F51.01) 03/21/2024 Other Start desvenlafaxine 25mg daily for [...] of psychotropic medications. -Crisis prevention hotline 988. 08/04/2024 Other Increase lexapro to 20mg daily for mood, anxiety Start amitriptyline 50mg nightly as needed for sleep Patient educated on all medications [...] of psychotropic medications. -Crisis prevention hotline 988. 09/01/2024 Other Start doxepin 25mg nightly for insomnia. Patient educated on all medications [...] -Crisis prevention hotline 988. Plan Of Treatment Next Appt Details Provider Name:Iris Arce, 10/06/2024 03:30:00 PM, [address] [facility] [address], [facility] [address], [place], [address], Insurance Providers Payer Name Payer Address Payer Phone Subscriber Number Group Number Insured Name Patient Relationship to Insured Coverage Start Date Coverage End Date [facility] [id number] [place] [phone] [id number] Caitlyn Mane Self - patient is the [...] 03/29/20 20 cataract right 11/14/2020; left 09/24/19 yag laser capsulotomy right 08/18/2021 yag left 09/01/2021
--- OUTSIDE RECORDS SUMMARY | 2024-09-03 17:07 | XMS_ITS ---
Author Organization [facility] As [place] Address [address] [facility] [address] [place] [address] Care Team Providers Care Functional Tester Typewriters Name Role Phone Duarte MCCRARY, Autumn Primary Care Provider Unavailable Iris Arce Unavailable [phone] Allergies Allergen (clinical drug ingredient) Drug/Non Drug [...] points) Encounters Encounter [facility] Date [facility] [address] [address] 07/02/2024 Iris Arce MDD (major depressiv e [...] Reason: medication follow up Provider Name:Iris Arce, 10/06/2024 03:30:00 PM, [address], [facility] [address], [place], [address], Progress Notes * Caitlyn MANEDOB:1960 (64 yo F)Acc No.[id number]:07/02/2024 Patient: Caitlyn NUNEZ Provider: VALERIA PEREZHNP :1960 A ge:64 Y S ex:Female Date:07/02/2024 Phone: Address:[address] [place], [place] [id number] Pcp:Autumn Zhu Subjective: * Chief Complaints: * 1 month f/u * HPI: P ast Psychiatric Hospitalizations: Previous psychiatric hospitalizations P revious Psychiatric Hospitalization N o. P ast History of Suicidal attempt H ave you ever attempted suicide in the past N o. Social hx: . 3 estranged children. 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, overactive bladder, HTN, chronic [...] . P sychotherapy A nn Jaquan at [facility] . Here for follow up. [...] c hange in appetite,weight gain. Junior pulliam [facility] [place]. P sychiatric: Patient denies [...] (2 points). 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 Safety issues A re there any firearms in the house??Yes. A dvance Care Planning A re you your own decision-maker Y es, D o you have Power of Bumper Operator for Health or Medical? N o. S ocial History: H james Barrios arital Status: M arried, N umber of Adults in household: 2 , N umber of Children in Household: 0 , L evel of Education: P rofessbesomebody. Schools/Masters/PhD. * Medications: T akingRestasis 0.05 % [...] effects of psychotropic medications. -Crisis prevention hotline 459. * Procedure Codes: 9 6127 BEHAV ASSMT W/SCORE & DOCD/STAND [id number] VISIT COMPLEXITY INHERENT TO ONGOING CARE RELATED TO A PATIENT'S SINGLE, SERIOUS CONDITION OR A COMPLEX [id number] CLIN DEPRESSION SCREEN DOC * Follow Up: 6 Weeks (Reason: medication follow up) * Billing Information: * Visit Code: 48601 OFFICE OUTPATIENT VISIT 25 MINUTES DETAILED HISTORY AND EXAM/MODERATE MEDICAL DECISION MAKING. * Procedure Codes: 87394 BEHAV ASSMT W/SCORE & DOCD/STAND INSTRUMENT. G2211 VISIT COMPLEXITY INHERENT TO ONGOING CARE RELATED TO A PATIENT'S SINGLE, SERIOUS CONDITION OR A COMPLEX CONDITION. G8431 CLIN DEPRESSION SCREEN DOC. * NEUROSURGICAL Sign off status: Completed true * Provider: HAILEE PEREZ Date: 0 07/02/2024 Generated for Kelly rai/Klever/Doriransmitting on: 0 09/03/2024 05:07 PM CDT History and Physical Notes * HPI (History [...] lability no antonino Psychotherapy Xiao Partida at [facility]- PRN Medication Side Effects none Past Psychiatric Hospitalizations Previous psychiatric hospitalizations Previous Psychiatric Hospitalization: No Social hx: . 3 estranged children. 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
--- OUTSIDE RECORDS SUMMARY | 2024-09-03 17:07 | XMS_ITS | Continuity of Care Document ---
Author Organization [email or web address] Address [address] [place] [address] [address] [place] [address] Phone Care Team Providers Care Technician Preventative Medicine Name Role Phone Leana DE LA PAZ Jairon TORRES Unavailable Unavailable Procedures Procedure Date Progress Note THERAPEUTIC EXERCISES NEUROMUSCULAR RE-ED MANUAL THERAPY FUNC ACTIVITY HOT/COLD PACK Carrying, Moving And Handling Objects-Cu rrent Carrying, Moving And Handling Objects-Go al THERAPEUTIC EXERCISES NEUROMUSCULAR RE-ED MANUAL THERAPY FUNC ACTIVITY HOT/COLD PACK Progress Note THERAPEUTIC EXERCISES NEUROMUSCULAR RE-ED MANUAL THERAPY FUNC ACTIVITY HOT/COLD PACK Carrying, Moving And Handling Objects-Cu rrent Carrying, Moving And Handling Objects-Go al THERAPEUTIC EXERCISES NEUROMUSCULAR RE-ED MANUAL THERAPY THERAPEUTIC EXERCISES NEUROMUSCULAR RE-ED MANUAL THERAPY HOT/COLD PACK THERAPEUTIC EXERCISES NEUROMUSCULAR RE-ED MANUAL THERAPY HOT/COLD PACK Progress Note THERAPEUTIC EXERCISES NEUROMUSCULAR RE-ED MANUAL THERAPY FUNC ACTIVITY HOT/COLD PACK Carrying, Moving And Handling Objects-Cu rrent Carrying, Moving And Handling Objects-Go al Medications Name Dose Freq Route DOC Jan THERAPEUTIC EXERCISES NEUROMUSCULAR RE-ED MANUAL THERAPY FUNC ACTIVITY HOT/COLD PACK THERAPEUTIC EXERCISES NEUROMUSCULAR RE-ED MANUAL THERAPY HOT/COLD PACK THERAPEUTIC EXERCISES NEUROMUSCULAR RE-ED MANUAL THERAPY HOT/COLD PACK THERAPEUTIC EXERCISES NEUROMUSCULAR RE-ED MANUAL THERAPY HOT/COLD PACK THERAPEUTIC EXERCISES NEUROMUSCULAR RE-ED MANUAL THERAPY HOT/COLD PACK THERAPEUTIC EXERCISES NEUROMUSCULAR RE-ED MANUAL THERAPY HOT/COLD PACK PT EVALUATION THERAPEUTIC EXERCISES NEUROMUSCULAR RE-ED MANUAL THERAPY Carrying, Moving And Handling Objects-Cu rrent Carrying, Moving And Handling Objects-Go al Medications Name Dose Freq Route DOC Dec Pain Assess Positive DOC 2015 BMI High F/U Plan DOC Functional Outcome Assessmen t documented, deficits identified, treatment plan es Progress Note THERAPEUTIC EXERCISES NEUROMUSCULAR RE-ED MANUAL THERAPY FUNC ACTIVITY HOT/COLD PACK Carrying, Moving And Handling Objects-Cu rrent Carrying, Moving And Handling Objects-Go al Medications Name Dose Freq Route DOC Aug THERAPEUTIC EXERCISES NEUROMUSCULAR RE-ED MANUAL THERAPY FUNC ACTIVITY HOT/COLD PACK THERAPEUTIC EXERCISES NEUROMUSCULAR RE-ED MANUAL THERAPY FUNC ACTIVITY HOT/COLD PACK THERAPEUTIC EXERCISES NEUROMUSCULAR RE-ED MANUAL THERAPY FUNC ACTIVITY HOT/COLD PACK THERAPEUTIC EXERCISES NEUROMUSCULAR RE-ED MANUAL THERAPY FUNC ACTIVITY HOT/COLD PACK Carrying, Moving And Handling Objects-Cu rrent Carrying, Moving And Handling Objects-Go al THERAPEUTIC EXERCISES NEUROMUSCULAR RE-ED MANUAL THERAPY FUNC ACTIVITY HOT/COLD PACK Medications Name Dose Freq Route DOC Aug THERAPEUTIC EXERCISES NEUROMUSCULAR RE-ED MANUAL THERAPY FUNC ACTIVITY HOT/COLD PACK Medications Name Dose Freq Route DOC Aug THERAPEUTIC EXERCISES NEUROMUSCULAR RE-ED MANUAL THERAPY FUNC ACTIVITY HOT/COLD PACK ELECTRIC STIMULATION UNATT Medications Name Dose Freq Route DOC Jul THERAPEUTIC EXERCISES NEUROMUSCULAR RE-ED FUNC ACTIVITY HOT/COLD PACK Medications Name Dose Freq Route DOC Jul THERAPEUTIC EXERCISES NEUROMUSCULAR RE-ED MANUAL THERAPY HOT/COLD PACK ELECTRIC STIMULATION UNATT Medications Name Dose Freq Route DOC Jul THERAPEUTIC EXERCISES NEUROMUSCULAR RE-ED MANUAL THERAPY HOT/COLD PACK ELECTRIC STIMULATION UNATT Medications Name Dose Freq Route DOC Jul THERAPEUTIC EXERCISES NEUROMUSCULAR RE-ED MANUAL THERAPY HOT/COLD PACK ELECTRIC STIMULATION UNATT Medications Name Dose Freq Route DOC Jul PT EVALUATION THERAPEUTIC EXERCISES NEUROMUSCULAR RE-ED MANUAL THERAPY Carrying, Moving And Handling Objects-Cu rrent Carrying, Moving And Handling Objects-Go al Medications Name Dose Freq Route DOC Jul Pain Assess Positive DOC 2015 BMI High F/U Plan DOC Functional Outcome Assessmen t documented, deficits identified, treatment plan es Advance Directives Directive Yes / No Effective Date File Name No Information Encounters Encounter Description Practice Location Reason(s) For Visit Diagnoses Date Provider Providers Copied on Encounter [facility] [address], [id number], tel:[phone] [place] No Information Sep-1 4- 6 Muehl Jairon. [address] [facility], [address], [facility], . tel: [phone] [facility] [address], [place], [id number], tel:[phone] [place] No Information Sep-0 7-201 6 Muehl Jairon. [address] [facility], [facility] [address], [place], [facility], [place]. tel: [phone] [facility] [address], [place], [address], tel:[phone] [place] No Information Jan-3 1-201 6 Muehl Jairon. [address] [facility], [address], [place], [facility], . tel: [phone] [facility] [address], [place], [address], tel:[phone] [place] No Information Aug-2 4-201 6 Muehl Jairon. [address] [facility], [address], [place], [address], [place]. tel: [phone] [address], [place], [place], [address], [place] tel:[phone] [place] No Information 1 7-201 6 Muehl Jairon. [address] [place] [address], [address], [place], [address], [place]. tel: [phone] [place] [address] [address], [place], [place], [address], [place] tel:[phone] [place] No Information 0-201 6 Muehl Jairon. [address] [place] [address], [address], [place], [address], [place]. tel: [phone] [address], [place], [place], [address], [place] tel:[phone] [place] No Information 0 5-201 6 Muehl Jairon. [address] [place] [address], [address], [place], [address], [place]. tel: [phone] [address], [place], [place], [address], [place] tel:[phone] [place] No Information Jan-0 2-201 6 Muehl Jairon. [address] [place] [address], [address], [place], [address], [place]. tel: [phone] [place] [address], [place], [place], [address], [place] tel:[phone] [place] No Information 9-201 6 Muehl Jairon. [address] [place] [address], [address], [place], [address], [place]. tel: [phone] [facility] [address], [place], [place], [address], [place] tel:[phone] [place] No Information 6-201 6 Muehl Jairon. [address] [facility], [address], [place], [address], [place]. tel: [phone] [facility] [address], [place], [place], [address], [place] tel:[phone] [place] No Information 2-201 6 Muehl Jairon. [address] [place] [address], [address], [place], [address], [place]. tel: [phone] [facility] [address], [place], [place], [address], [place] tel:[phone] [place] No Information 8 6 Vicenta Larson. [address] [place] [address], [address], [place], [address], [place]. tel: [phone] [facility] [address], [place], [place], [address], [place] tel:[phone] [place] No Information 4-201 6 Muehl Jairon. [address] [place] [address], [address], [place], [address], [place]. tel: [phone] [facility] [address], [place], [place], [address], [place] tel:[phone] [place] Low back pain 1 6 Muehl Jairon. [address] [place] [address], [address], [place], [address], [place]. tel: [phone] [facility] [address], [place], [place], [address], [place] tel:[phone] [place] No Information 3-201 6 Muehl Jairon. [address] [place] [address], [address], [place], [address], [place]. tel: [phone] [facility] [address], [place], [place], [address], [place] tel:[phone] [place] No Information 1-201 6 Muehl Jairon. [address] [place] [address], [address], [place], [address], [place]. tel: [phone] [facility] [address] [place], [place] [address], [place], [address], [place] tel:[phone] [place] No Information Mar-1 6-201 6 Muehl Jairon. [address] [place] [address], [address], [place], [address], [place]. tel: [phone] [address], [place], [address], [place] tel:[phone] [place] No Information Mar-1 4-201 6 Muehl Jairon. [address] [place] [address], [address], [place], [address], [place]. tel: [phone] [address], [place], [place], [address], [place] tel:[phone] [place] No Information Mar-0 9-201 6 Muehl Jairon. [address] [place] [address], [address], [place], [address], [place]. tel: [phone] [place] [address] [place], [place] [address], [place], [address], [place] tel:[phone] [place] No Information Mar-0 7-201 6 Schranck Neo. [address] [place] [address], [address], [place], [address], [place]. tel: [phone] [facility] [address] [facility], [place], [address], [place] tel:[phone] [place] No Information Mar-0 2-201 6 Muehl Jairon. [address] [place] [address], [address], [place], [address], [place]. tel: [phone] [facility] [address], [place], [place], [address], [place] tel:[phone] [place] No Information Feb-2 9-201 6 Muehl Jairon. [address] [place] [address], [address] [address], . tel: [phone] [place] [address], [place], [address], tel:[phone] [place] No Information b-2 2-201 6 Muehl Jairon. [address] [place] [address], [address], [place] [address], . tel: [phone] [place] [address], [place], [address], tel:[phone] [place] No Information b-1 7-201 6 Muehl Jairon. [address] [place] [address], [place] [address], . tel: [phone] [address], [address], tel:[phone] [place] No Information 5-201 6 Muehl Jairon. [address] [place] [address], [facility] [address] [address], . tel: [phone] [address], [id number], tel:[phone] [place] No Information 1 0-201 6 Muehl Jairon. [address] [place] [address], [place] [address], . tel: [phone] [address], [id number], tel:[phone] [place] Pain in thoracic spineSegmental and somatic dysfunction of thoracic regionStrain of muscle and tendon of back wall of thorax, subs Feb-0 3-201 6 Muehl Jairon. [address] [place] [address], [address], [place] [address], . tel: [phone] Family History Family Member Type Diagnosis Age At Onset No Information Payers Payer name Insurance type Covered democrat ID Authorlakshmia timanju(s) Medicare [place] [id number] [facility] [id number] [facility] [id number] Social History Type Description Quantity Date Captured Comments Sex Female Smoking Status No Information Chief Complaint And Reason For Visit No Information Reason For Referral Reason For Referral No Information History Of Present Illness Encounter Date Complaint History Of Prese nt Illness No Information Functional Status Date Functional Assessmen t No Information Instructions Date Instruction Additional Infor mation No Information Assessments Type Assessment Date No Information Patient Care Teams Name Effective Dates (start - stop) Status Members No Information
--- OUTSIDE RECORDS SUMMARY | 2024-09-03 17:07 | XMS_ITS | Clinical Summary ---
Author Organization [facility] Address [address] [place] [address] Care Team Providers Care Data Control Clerk Supervisor Name Role Phone Unavailable Primary Care Provider [...]
--- OUTSIDE RECORDS SUMMARY | 2024-09-03 17:07 | XMS_ITS | Referral Summary ---
Author Organization [facility] Address [address] [place] [address] Care Team Providers Care Hydrogeology Professor Name Role Phone Autumn Ramachandran MD Primary [...] on file Legal Sex Female 8:27 PM [employer] Gender Identity Not on file Sexual Orientation Not on file Last Filed Vital Signs Vital Sign Reading Time Taken Comments Blood Pressure 151/84 07/07/2020 9:16 AM [employer] Pulse 54 07/07/2020 9:16 AM [employer] Temperature 36.5 C (97.7 F) 07/07/2020 9:16 AM [employer] Respiratory Rate - - Oxygen Saturation 96% 03/28/2020 6:02 PM CDT Inhaled Oxygen Concentration - - Weight 84.6 kg (186 lb 9.6 oz) 07/07/2020 9:16 A M [employer] Height 154.9 cm (5' 1 ) 07/07/2020 9:16 AM [employer] Body Mass Index 35.26 07/07/2020 9:16 AM [employer] Plan of Treatment Not on file Insurance [employer] [place] [address] [employer] Advance Directives For more information, please contact: [phone] Documents on File Type Date Recorded Patient Block Placer Expl anation ADVANCE DIRECTIVE 04/05/2020 12:00 AM [facility] FINANCIAL/MEDICAL ADVANCE DIRECTIVE 04/05/2020 12:00 AM VERONIQUE ING WILL Care Teams Hydrogeology Professor Relationship Specialty Start Date End Date Autumn Ramachandran MD PCP - General Family Practice 02/04/20
--- OUTSIDE RECORDS SUMMARY | 2024-09-03 17:07 | XMS_ITS | Continuity of Care Document ---
[facility] Organization [facility] [place] [address] [place] [address] Phone Care Team Providers Care Fulfillment Associate Name Role Phone Yoly MCCRARY FACS, Jens Max Unavailab le Allergies, Adverse Reactions, Alerts Substance Reaction Status Criticality DOXYCYCLINE HCL Active No Informati on Sulfa (Sulfonamide Antibiotics) Active No Information Medications Medication Instructions Dosage Effective Dates (start - stop) Status Comments pregabalin 25 mg capsule take 1 capsule by oral route 3 times every day 25 MG - Active prednisone 5 mg tablet take 1 tablet by oral route every day 5 MG - Active citalopram 10 mg tablet take 1 tablet by oral route every day 10 MG - Active liothyronine 5 mcg tablet take 1 tablet by oral route every day 5 MCG - Active meloxicam 7.5 mg tablet take 1 tablet by oral route every day 7.5 MG - Active Xatmep 2.5 mg/mL oral solution take one tablet daily - Active pantoprazole DR 40 mg granules delayed-release for susp in packet take 1 packet by oral route every day mixed in 1 teaspoonful of applesauce or apple juice 40 MG - Active minocycline 50 mg capsule take 2 capsule by oral route every 12 hours 100 MG - Active atorvastatin 10 mg tablet take 1 tablet by oral route every day 10 MG - Active quinapril 5 mg tablet take 1 tablet by o ral route 2 times every day 5 MG - Active Procedures Procedure Date After [...] GDX Retina No Charge Orbscan Office/outpatient Visit, [facility] Advance Directives Directive Yes / No Effective Date File Name No Information Encounters Encounter Description Practice Location Reason(s) For Visit Diagnoses Date Provider Providers Copied on Encounter [facility], [address] [place], [place] [address], [place], [id number], tel:[phone] [facility] No Information Aug- 2 Yoly Jens. [address] [place] [address] [employer] [facility], [address], [place], [address], [place]. tel:[phone] Referring Provider: Milton Healy, [address] [place] [address], [address]. tel:[phone] [facility], [address] [place] [address] [address], [place], [place], [id number], [place] tel:[phone] [facility] No Information Aug- 0- 2 [place] Jens. [address] [place] [address] [employer] [facility], [address], [place], [place], [address], [place]. tel:[phone] Referring Provider: Milton Healy, [address] [place] [address], [address]. tel:[phone] Office/outpa tient Visit, [facility], [address] [place] [address] [address], [place], [place], [id number], tel:[phone] [facility] [place] YAG Evaluation (chief complaint) Other secondary cataract, bilateral 2 Yoly Jens. [facility] [address], [address], [place], [place], [address], [place]. tel:[phone] Estevan Baez MD.Alisson Laguna MD.Referrin g Provider: Milton Healy, [address] [place] [address], [address]. tel:[phone] [facility], [facility] [address], [place], [place], [address], tel:[phone] SEC [place] N [place] Post-Op (chief complaint) Hx of LASIKPresenc e of intraocular lensOther secondary cataract, right eye 1 [place] Jens. [address] [place] [address] [employer] [facility], [address], [place], [place], [id number], [place]. tel:[phone] Estevan Baez MD.Alisson Laguna MD.Referrin g Provider: Milton Healy, [address] [place] [address], [address]. tel:[phone] [facility], [facility] [address], [place], [place], [address], [place] tel:[phone] SEC Ramon LEMUS Professional 2 wk po PCIOL OS (Near) (10/14/20) (chief complaint) Post op visit No Information Referring Provider: Milton Healy, [address] [place] [address], [address]. tel:[phone] [facility], [address] [place] [address] [address], [place], [place], [id number], tel:[phone] SEC Ramon LEMUS Professional Post-Op (chief complaint) Post op visit 0 1 Jose Ferreira. [address] [facility], [facility] A, [place], [place], [address], [place]. tel:[phone] Estevan Baez MD.Alisson Laguna MD.Referrin g Provider: Milton Healy, [address] [place] [address], [address]. tel:[phone] [facility], [address] [place] [address] [address], [place], [place], [id number], tel:[phone] [facility] No Information 1 [place] Jens. [address] [place] [address] [address], [address], [place], [place], [address], . tel:[phone] Referring Provider: Milton Healy, [address] [place] [address], [address]. tel:[phone] [facility], [address] [place] [address] [address], [place], [place], [address], [place] tel:[phone] PALAK MurphyAlden DILCIA No Information 1 [place] Jens. [address] [place] [address] [address], [address], [place], [place], [address], . tel:[phone] Referring Provider: Milton Healy, [address] [place] [address], [address]. tel:[phone] [facility], [address] [place] [address] [address], [place], [place], [address], tel:[phone] PALAK LEMUS Professional 2 wk po PCIOL OD (09/23/20) (chief complaint) Post op visit Sep-2 1 No Information Estevan Baez MD.Alisson Laguna MD.Referrin g Provider: Milton Healy, [address] [place] [address], [address]. tel:[phone] [facility], [address] [place], [place] [address] [address], [place], [place], [address], [place] tel:[phone] SEC Ramon LEMUS Professional Post-Op (chief complaint) Post op visit 1 Jose Ferreira. [address] [facility], [address] [place], [address], [place]. tel:[phone] Estevan Baez MD.Alisson Laguna MD.Referrin g Provider: Milton Healy, [address] [place] [address], [address]. tel:[phone] [facility], [facility] [address], [place], [place], [address], [place] tel:[phone] [facility] No Information 1 Yoly Colindres. [facility] [place], [address], [place], [place], [address], [place]. tel:[phone] Referring Provider: Milton Healy, [address] [place] [address], [address]. tel:[phone] [facility], [facility] [address], [place], [place], [address], [place] tel:[phone] PALAK [place] No Information 1 Yoly Colindres. [facility] [address], [address], [place], [place], [address], [place]. tel:[phone] Referring Provider: Milton Healy, [address] [place] [address], [address]. tel:[phone] Office/outpa tient Visit, [facility], [address] [place], [place] [address] [address], [place], [place], [address], [place] tel:[phone] SEC Ramon LEMUS Professional Cataract evaluation (chief complaint) Combined forms of age-related cataract, bilateralHx of LASIK 1 Yoly Colindres. [address] [employer] [facility], [address], [place], [place], [address], . tel:[phone] Estevan Baez MD.Alisson Laguna MD.Dago g Provider: Milton Greenberg OD A, [address] [facility] [place], [address]. tel:[phone] [facility], [address] [facility] [address], [place], [place], [address], [place] tel:[phone] PALAK LEMUS Professional No Information No Lockstitch Sleeve Maker: Estevan Baez MD, [address] [facility] [address], [place], [address]. tel:[phone] alist: Alisson Laguna MD, [address] [facility] [address], [place], [address]. tel:[phone] Family History Family Member Type Diagnosis Age At Onset Problem Family history of degenerati ve disorder of macula Payers Payer name Insurance type Covered alliance party ID Authorragini cowan(s) [facility] Mdcr Adv CI [id number] Social History Type Description Quantity Date Captured [...]
--- OUTSIDE RECORDS SUMMARY | 2024-09-03 17:07 | XMS_ITS ---
Author Organization [facility] [employer] Address [address] [facility] [address] [place] [address] Care Team Providers Care Food Service Representative Name Role Phone Duarte MCCRARY, Autumn Primary Care Provider Unavailable Iris Arce Unavailable [phone] Allergies Allergen (clinical drug ingredient) Drug/Non Drug Allergy documented on EMR Reaction Allergy Type Onset Date Status doxycycline Doxycycline Unknown Drug Allergy Act michael Substance with sulfonamide structure and antibacterial mechanism of action (substance) Sulfa Antibiotics Unknown Drug Allergy Active REASON FOR VISIT 1 month f/u, Depression screening positive Medications Medication SIG (Take, Route, Frequency, Duration) Notes Start Date End Date Status Escitalopram Oxalate 20 MG 1 tablet Oral ly Once a day for 30 days Active Minocycline HCl 50 MG TAKE 1 CAPSULE BY MOUTH TWICE DAILY Oral for 90 Days Active Restasis 0.05 % Ophthalmic for 90 Days Active Levothyroxine Sodium 50 MCG Oral for 100 Days Active Gemtesa 75 MG 1 tablet Orally Once a day Active Restasis 0.05 % 1 drop into affected eye Ophthalmic Twice a day Active Doxepin HCl 25 MG 1 capsule at bedtime Orally Once a day for 30 days 09/01/2024 Active Social History Tobacco Use: Social History [...] points) Encounters Encounter Location Date Provider Diagnosis [facility] [address] [address] 09/01/2024 Iris Arce Encounter for screening for depression Z13.31 ; MDD (major depressive disorder), recurrent severe, 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 ; YENI (generalized anxiety disorder) F41.1 and Primary insomnia F51.01 Assessments Encounter Date Diagnosis (ICD Code) Assessment Notes Treatment Notes Treatment Clinical Notes Section Notes 09/01/2024 Encounter for screening for depression (ICD-10 - Z13.31) 09/01/2024 MDD (major depressive disorder), recurrent severe, without psychosis (ICD-10 - F33.2) SSRI/SNRI side effects discussed including but not limited to, gastric upset, nausea, vomiting, diarrhea and/or constipation, weight changes, sexual side effects including loss of libido, increased suicidal thoughts/behavi ors in children and young adults, and serotonin syndrome. 09/01/2024 YENI (generalized anxiety disorder) (ICD-10 - F41.1) 09/01/2024 Primary insomnia (ICD-10 - F51.01) 09/01/2024 Other Start doxepin 25mg nightly for [...] Name Sig Start Date Stop Date Notes Escitalopram Oxalate 20 MG 1 tablet Oral ly Once a day for 30 days Doxepin HCl 25 MG 1 capsule at bedtime Orally Once a day for 30 days 09/01/2024 Treatment Notes Assessment Notes MDD (major depressive disord er), recurrent severe, without psychosis SSRI/SNRI side effects discussed includi ng but not limited to, gastric upset, nausea, vomiting, diarrhea and/or constipation, weight changes, sexual side effects including loss of libido, increased suicidal thoughts/behaviors in children and young adults, and serotonin syndrome. Other Start doxepin 25mg nightly for insomnia. Patient educated on all medications including potential benefits, side effects, risks. Educated on proper dosing schedule and importance of compliance. Next Appt Details Follow Up: 4 Weeks, Reason: med f/u Provider Name:Iris Arce, 10/06/2024 03:30:00 PM, [address] [facility] [address] [facility], [address], [address], Progress Notes * Caitlyn MANEDOB:1960 (64 yo F)Acc No.[id number]:09/01/2024 Patient: Caitlyn NUNEZ Provider: HAILEE PEREZ :1960 A ge:64 Y S ex:Female Date:09/01/2024 Phone: Address:[address] [place], [place] [id number] Pcp:Autumn Zhu Subjective: * Chief Complaints: * 1 month f/uDepression screening positive * HPI: P ast Psychiatric Hospitalizations: Previous psychiatric hospitalizations P revious Psychiatric Hospitalization N o Past History of Suicidal attempt H ave you ever attempted suicide in the past?No Social hx: . 3 estranged children. 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 Previous medications: fluoxetine (tremors), duloxetine (increased intraocular pressure), effexor, Milnacipran, trazodone (hangover), pristiq (ineffective), quetiapine (hangover), mirtazapine (hangover), amitriptyline (activation) Supplements: vitamin D, magnesium, fish oil Trauma/Abuse: denies Substance use hx: d enies Nicotine: former smoker- quit over 30 years ago Alcohol: rare. H istory of Presenting Problem: Medication Side Effects n one . Anxiety R ates anxiety 4-5/10 with 10 being most severe. Denies recent panic attacks. . Depression R ates depression 3/10 with 10 being most severe. Denies SI. . Mood lability n o antonino . Psychosis n o hx psychosis . Sleep disturbance w ith a history of sleep apnea- off CPAP.? Suicidal ideation d enies . Psychotherapy A lindsey Partida at [facility] . Here for follow up. Escitalopram increased last apt. States she is doing fair . Depression has improved, not feeling hopeless or helpless, no suicidal ideation. She has started a new exercise class at the [facility] in [place]. Anxiety is improved, denies recent panic attacks. Sleep is poor, amitriptyline caused activation. Getting about 5 hours nightly, difficulty falling and staying asleep. Energy level is low. Appetite is good. D epression Screening: YENI-7 (2018 Edition) F eeling nervous, anxious, or on edge S everal N ot being able to stop or control worrying?Several days W orrying too much about different things S ever T rouble relaxing S ever B eing so restless that it is hard to sit still N ot at all B ecoming easily annoyed or irritable S ever F eeling afraid as if something awful might happen N ot at all I f you checked any problems, how difficult have they made it for you to do your work, take care of things at home, or get along with other people? S omewhat difficult [place]-Suicide Severity Rating Scale: Suicide Risk (CSRS-screener) i n the past one month Have you wished you were or wished you could go to sleep and not wake up? Y es i n the past one month Have you actually had any thoughts of killing yourself? N o D epression screening: PHQ-9 L ittle interest or pleasure in doing things?Several days F eeling down, depressed, or hopeless S everal days T rouble falling or staying asleep, or sleeping too much M ore than half the days F eeling tired or having little energy N early every day P oor appetite or overeating S ever F eeling bad about yourself or that you are a failure, or have let yourself or your family down S everal days T rouble concentrating on things, such as reading the newspaper or watching television S ever M oving or speaking so slowly that other people could have noticed; or the opposite, being so fidgety or restless that you have been moving around a lot more than usual N ot at all T houghts that you would be better off or of hurting yourself in some way (Consider Suicide Assessment Risk) Intervention D epression Screening Findings P ositve F ollow-Up for Depression M ental health treatment assessment, Patient follow-up to return when and if necessary S uicide Risk Assessment Performed _ A dditional Evaluation for Depression P sychiatric interview and evaluation N raz of the standardized tool used for adult depression screening: [facility] (PHQ-[facility]) * ROS: G eneral / Constitutional: Patient denies h eadache, lightheadedness, weight loss.?Patient complains of c hange in appetite,weight gain. C heraclio S HPI for details. P sychiatric: Patient denies a uditory / visual hallucinations, delusions, suicidal thoughts, antonino, psychosis, panic attacks, difficulty concentrating. P atient complains of a nxiety,depressed mood. C heraclio S HPI for details. * Medical History: [...] Grandmother: None. B rother: None.?Sister: None. D aughter: None. * Social History: T obacco Use: T obacco Control (Standard) W hen did you stop smoking? T obacco use: F ormer smoker H ow long has it been since you last smoked??Greater than 10 years D rug/Alcohol: D rugs H ave you used drugs other than those for medical reasons in the past 12 months? N o AUDIT-C (Standard) D id you have a drink containing alcohol in the past year? Y es H ow often did you have six or more drinks on one occasion in the past year? N ever (0 point) H ow many drinks did you have on a typical day when you were drinking in the past year? 1 or 2 drinks (0 point) H ow often did you have a drink containing alcohol in the past year? 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 Safety issues A re there any firearms in the house? Y es Advance Care Planning A re you your own decision-maker Y es D o you have Power of Visual Display Manager for Health or Medical? Y es D o you have a power of peer health promoter for health??Yes D o you have power of peer health promoter for Medical ??Yes I f yes, then please bring the POA paperwork so that we can upload it. N o A dvance Directive D o Not Intubate,Do Not Resuscitate,Durable Power of Visual Display Manager for Healthcare S ocial History: H ousehold M arital Status: M arried N umber of Adults in household: 2 N umber of Children in Household: 0 L evel of Education: P [employer] Schools/Masters/PhD * Medications: T akingRestasis 0.05 % Emulsion 1 drop into affected eye Ophthalmic Twice a day Gemtesa 75 MG Tablet 1 tablet Orally Once a day Minocycline HCl 50 MG Capsule TAKE 1 CAPSULE BY MOUTH TWICE DAILY Oral Levothyroxine Sodium 50 MCG Tablet Oral Restasis 0.05 % Emulsion Ophthalmic Escitalopram Oxalate 20 MG Tablet 1 tablet Orally Once a day Taking Restasis 0.05 % Emulsion 1 drop into affected eye Ophthalmic Twice a day Taking Gemtesa 75 MG Tablet 1 tablet Orally Once a day Taking Minocycline HCl 50 MG Capsule TAKE 1 CAPSULE BY MOUTH TWICE DAILY Oral Taking Levothyroxine Sodium 50 MCG Tablet Oral Taking Restasis 0.05 % Emulsion Ophthalmic Taking Escitalopram Oxalate 20 MG Tablet 1 tablet Orally Once a day DiscontinuedAmitriptyline HCl 25 MG Tablet 1 tablet at bedtime Orally Once a day As neededMedication List reviewed and reconciled with the patientDiscontinued Amitriptyline HCl 25 MG Tablet 1 tablet at bedtime Orally Once a day As neededMedication List reviewed and reconciled with the patient [...] without psychosis - F33.2 (Primary) 2 . E ncounter for screening for depression - Z13.31 3 . G AD (generalized anxiety disorder) - F41.1 4 . P rimary insomnia - F51.01 ? Plan: * Treatment: 2. P rimary insomnia Start Doxepin HCl Capsule, 25 MG, 1 capsule at bedtime, Orally, Once a day, 30 days, 30, Refills 1.? 3. O thers Notes: Start doxepin 25mg nightly for insomnia. Patient [...] effects of psychotropic medications. -Crisis prevention hotline 118. * Procedure Codes: 9 6127 BEHAV ASSMT W/SCORE & DOCD/STAND [id number] CLIN DEPRESSION SCREEN [id number] VISIT COMPLEXITY INHERENT TO ONGOING CARE RELATED TO A PATIENT'S SINGLE, SERIOUS CONDITION OR A COMPLEX CONDITION * Follow Up: 4 Weeks (Reason: med f/u) * Billing Information: * Visit Code: 24829 OFFICE OUTPATIENT VISIT 25 MINUTES DETAILED HISTORY AND EXAM/MODERATE MEDICAL DECISION MAKING. * Procedure Codes: 82956 BEHAV ASSMT W/SCORE & DOCD/STAND INSTRUMENT. G8431 CLIN DEPRESSION SCREEN DOC. G2211 VISIT COMPLEXITY INHERENT TO ONGOING CARE RELATED TO A PATIENT'S SINGLE, SERIOUS CONDITION OR A COMPLEX CONDITION. * Sign off status: Completed true * Provider: HAILEE PEREZ Date: 0 09/01/2024 Generated for Kelly rai/Klever/Carleeitting on: 0 09/03/2024 05:07 PM CDT History and Physical Notes * HPI (History of Present Illness) Category Sub-Category Detail Notes Category Not es History of Presenting Problem Anxiety Rates anxiety 4-5/10 with 10 being most severe. Denies recent panic attacks. Here for follow up. Escitalopram increased last apt. States she is doing fair . Depression has improved, not feeling hopeless or helpless, no suicidal ideation. She has started a new exercise class at [facility] [place]. Anxiety is improved, denies recent panic attacks. Sleep is poor, amitriptyline caused activation. Getting about 5 hours nightly, difficulty falling and staying asleep. Energy level is low. Appetite is good. Depression Rates depression 3/1 0 with 10 being most severe. Denies SI. Suicidal ideation denies Sleep disturbance with a history of sl eep apnea- off CPAP Psychosis no hx psychosis Mood lability no antonino [facility] Side Effects none Past Psychiatric Hospitalizations Previous psychiatric hospitalizations Previous Psychiatric Hospitalization: No Social hx: . 3 estranged children. 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 Previous medications: fluoxetine (tremors), duloxetine (increased intraocular pressure), effexor, Milnacipran, trazodone (hangover), pristiq (ineffective), quetiapine (hangover), mirtazapine (hangover), amitriptyline (activation) Supplements: vitamin D, magnesium, fish oil Trauma/Abuse: denies Substance use hx: denies Nicotine: former smoker- quit over 30 years ago Alcohol: rare Past History of Suicidal attempt Have yo u ever attempted suicide in the past: No Depression screening PHQ-9 Little inte rest or pleasure in doing things: Several days Feeling down, depressed, or hopeless: Se veral days Trouble falling or staying a sleep, or sleeping too much: More than half the days Feeling tired or having little energy: N early every day Poor appetite or overeating: Several day s [...] way: Several days (Consider Suicide Assessment Risk) Intervention Depression Screening Findings: P ositve Follow-Up for Depression: [facility] health treatment assessment, Patient follow-up to return when and if necessary Suicide Risk Assessment Performed: Additional Evaluation for Depression: Ps ychiatric interview [...] get along with other people?: Somewhat difficult [place]-Suicide Severity Rating Scale Suicide Risk (CSRS-screener) in [...]
--- OUTSIDE RECORDS SUMMARY | 2024-09-03 17:07 | XMS_ITS | Clinical Summary ---
Author Organization [facility] Address [address] [place] [phone] Care Team Providers Care Turbine Assembler Name Role Phone Autumn Ramachandran MD Primary [...] History Date Comments Allergic rhinitis Autoimmune disease Depression Hypertension Chronic bronchitis (HCC) Sinusitis Thyroid [...] on file Legal Sex Female 8:27 PM [employer] Gender Identity Not on file Sexual Orientation Not on file Obstetrics History Last Filed Vital Signs Vital Sign Reading Time Taken Comments Blood Pressure 151/84 07/07/2020 9:16 AM [employer]ER Pulse 54 07/07/2020 9:16 AM [employer] Temperature 36.5 C (97.7 F) 07/07/2020 9:16 AM [employer]ER Respiratory Rate - - Oxygen Saturation 96% 03/28/2020 6:02 PM CDT Inhaled Oxygen Concentration - - Weight 84.6 kg (186 lb 9.6 oz) 07/07/2020 9:16 A M [employer] Height 154.9 cm (5' 1 ) 07/07/2020 9:16 AM [employer]AGE [employer]ER Body Mass Index 35.26 07/07/2020 9:16 AM [employer]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
--- OUTSIDE RECORDS SUMMARY | 2024-09-03 17:08 | XMS_ITS ---
Author Organization [facility] As [employer] Address [address] [facility] [address] [place] [address] Care Team Providers Care Licensed Acupuncturist Name Role Phone Duarte MCCRARY, Autumn Primary Care Provider Unavailable Iris Arce Unavailable [phone] Allergies Allergen (clinical drug ingredient) Drug/Non Drug Allergy documented on EMR Reaction Allergy Type Onset Date Status doxycycline Doxycycline Unknown Drug Allergy Act michael Substance with sulfonamide structure and antibacterial mechanism of action (substance) Sulfa Antibiotics Unknown Drug Allergy Active REASON FOR VISIT checked in, advance care planning, Depression screening positive, Follow up psychological reason Medications Medication SIG (Take, Route, Frequency, Duration) Notes Start Date End Date Status Levothyroxine Sodium 50 MCG Oral for 100 Days Active Minocycline HCl 50 MG TAKE 1 CAPSULE BY MOUTH TWICE DAILY Oral for 90 Days Active Amitriptyline HCl 25 MG 1 tablet at bedtime Orally Once a day for 30 days As needed 08/04/2024 Active Restasis 0.05 % Ophthalmic for 90 Days Active Escitalopram Oxalate 20 MG 1 tablet Oral [...] has it been since you last smoked? Nurysa ter than 10 years AUDIT-C (Standard) Question [...] to 4 times a month (2 points) Vital Signs Blood pressure systolic 123 mm Hg 08/04/19 25 Blood pressure diastolic 71 mm Hg 025 Heart Rate 54 /min 08/04/2024 Height 60 in 08/04/2024 Weight 166 lbs 08/04/2024 BMI 32.42 kg/m2 08/04/2024 Height-cm 152.4 cm 08/04/2024 Weight-kg 75.3 kg 08/04/2024 Encounters Encounter Location Date Provider Diagnosis [facility] Valentin Uzhun [facility] [address] [place] [address] 08/04/2024 Iris Arce MDD (major depressiv e disorder), recurrent severe, 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 08/04/2024 YENI (generalized anxiety disorder) (ICD-10 - F41.1) 08/04/2024 Primary insomnia (ICD-10 - F51.01) 08/04/2024 Other Increase lexapro to 20mg daily [...] effects of psychotropic medications. -Crisis prevention hotline 625. Plan Of Treatment Medication Medication Name Sig Start Date Stop Date Notes Amitriptyline HCl 25 MG 1 tablet at bedt ayana Orally Once a day for 30 days 08/04/2024 Mirtazapine 15 MG 1 tablet at bedtime Orally Once a day for 30 days Escitalopram Oxalate 20 MG 1 tablet Oral ly Once a day for 30 days Treatment Notes Assessment Notes MDD (major depressive disord er), recurrent severe, without psychosis SSRI/SNRI side effects discussed includi ng but not limited to, gastric upset, nausea, vomiting, diarrhea and/or constipation, weight changes, sexual side effects including loss of libido, increased suicidal thoughts/behaviors in children and young adults, and serotonin syndrome. Other Increase lexapro to 20mg daily for mood, anxiety Start amitriptyline 50mg nightly as needed for sleep Patient educated on all medications including potential benefits, side effects, risks. Educated on proper dosing schedule and importance of compliance. Next Appt Details Follow Up: 4 Weeks, Reason: medication follow up Provider Name:Iris Arce, 10/06/2024 03:30:00 PM, [address] [facility] [address] [facility], [address], [address], Progress Notes * Caitlyn MANEDOB:1960 (64 yo F)Acc No.[id number]:08/04/2024 Patient: Elvis MANCERA Caitlyn Provider: VALERIA PEREZHNP :1960 A ge:64 Y S ex:Female Date:08/04/2024 Phone: Address:[address] [place], [place] [id number] Pcp:Autumn Zhu Subjective: * Chief Complaints: * C hecked inAdvance care planningDepression screening positiveFollow up psychological reason * HPI: D epression Screening: YENI-7 (2018 Edition) F eeling nervous, anxious, or on edge S everal days N ot being able to stop or control worrying?Several days W orrying too much about different things S everal days T rouble relaxing S everal days B eing so restless that it is hard to sit still N ot at all B ecoming easily annoyed or irritable S everal days F eeling afraid as if something awful might happen S ever I f you checked any problems, how [...] L ittle interest or pleasure in doing things?More than half the days F eeling down, depressed, or hopeless S everal days T rouble falling or staying asleep, or sleeping too much M ore than half the days F eeling tired or having little energy N early every day P oor appetite or overeating N early every day F eeling bad about yourself or that you are a failure, or have let yourself or your family down S everal days T rouble concentrating on things, such as reading the newspaper or watching television M ore than half the days M oving or speaking so slowly that other people could have noticed; or the opposite, being so fidgety or restless that you have been moving around a lot more than usual N ot at all T houghts that you would be better off or of hurting yourself in some way N ot at all T otal Score 1 4 I nterpretation M oderate Depression Intervention D epression Screening Findings P ositve F ollow-Up for Depression M ental health treatment assessment, Patient follow-up to return when and if necessary S uicide Risk Assessment Performed _ A dditional Evaluation for Depression P sychiatric interview and evaluation N raz of the standardized tool used for adult depression screening: P atient Health Questionnaire (PHQ-9) P ast Psychiatric Hospitalizations: Previous psychiatric hospitalizations P revious Psychiatric Hospitalization N o Past History of Suicidal attempt H ave you ever attempted suicide in the past?No Social hx: . 3 estranged children. 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 Previous medications: fluoxetine (tremors), Elavil, duloxetine (increased intraocular pressure), effexor, Milnacipran, trazodone (hangover), pristiq (ineffective), quetiapine (hangover), mirtazapine (hangover) Supplements: vitamin D, magnesium, fish oil Trauma/Abuse: denies Substance use hx: d enies Nicotine: former smoker- quit over 30 years ago Alcohol: rare. H istory of Presenting Problem: Medication Side Effects n one . Anxiety R ates anxiety 7/10 with 10 being most severe. Denies recent panic attacks. . Depression R ates depression 6/10 with 10 being most severe. Denies SI. . Mood lability n o antonino . Psychosis n o hx psychosis . Sleep disturbance w ith a history of sleep apnea- off CPAP.? Suicidal ideation d enies . Psychotherapy A lindsey Partida at [facility] . Here for follow up. Escitalopram increased last apt. Mother in law about two weeks ago, is struggling with this. Anxiety and motivation have improved. Denies side effects since dose increase. Denies feeling hopeless or helpless. No suicidal ideation. Denies recent panic attacks. Anxiety situational to politics. Sleep is fair, mirtazapine caused hangover drowsiness. Getting about 6 hours nightly. Appetite is good. * ROS: G eneral / Constitutional: Patient denies h eadache, lightheadedness, weight loss.?Patient complains of c hange in appetite,weight gain. C heraclio S HPI for details. P sychiatric: Patient denies a uditory / visual hallucinations, delusions, suicidal thoughts, antonino, psychosis, panic attacks, difficulty concentrating. P atient complains of a nxiety,depressed mood. C heraclio S ee HPI for details. P erformance Met: N ormal blood pressure reading documented, follow-up not required ( G8783). * Medical History: * Surgical History: liliana [...] Grandmother: None. B rother: None.?Sister: None. D nicolehter: None. 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 Safety issues A re there any firearms in the house? Y es Advance Care Planning A re you your own decision-maker Y es D o you have Power of Process Control Tech for Health or Medical? Y es D o you have a power of regulatory attorney for health??Yes D o you have power of regulatory attorney for Medical ??Yes I f yes, then please bring the POA paperwork so that we can upload it. 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 Applause/Masters/PhD * Medications: T akingEscitalopram Oxalate 10 MG Tablet 1.5 tablet Orally Once a day Mirtazapine 15 MG Tablet 1 tablet at bedtime Orally Once a day Restasis 0.05 % Emulsion 1 drop into affected eye Ophthalmic Twice a day Gemtesa 75 MG Tablet 1 tablet Orally Once a day Minocycline HCl 50 MG Capsule TAKE 1 CAPSULE BY MOUTH TWICE DAILY Oral Levothyroxine Sodium 50 MCG Tablet Oral Restasis 0.05 % Emulsion Ophthalmic Medication List reviewed and reconciled with the patientTaking Escitalopram Oxalate 10 MG Tablet 1.5 tablet Orally Once a day Taking Mirtazapine 15 MG Tablet 1 tablet at bedtime Orally Once a day Taking Restasis 0.05 % Emulsion 1 drop into affected eye Ophthalmic Twice a day Taking Gemtesa 75 MG Tablet 1 tablet Orally Once a day Taking Minocycline HCl 50 MG Capsule TAKE 1 CAPSULE BY MOUTH TWICE DAILY Oral Taking Levothyroxine Sodium 50 MCG Tablet Oral Taking Restasis 0.05 % Emulsion Ophthalmic Medication List reviewed and reconciled with the patient * Allergies: S ulfa AntibioticsDoxycyclineno[Allergies Verified] Objective: * Vitals: B P:123/71mm Hg, HR:54/min, Wt:166lbs, Wt-k.3 kg, Ht: 60 in, Ht-cm: 152.4 cm, BMI:32.42Index, Body Surface Area: 1.78. * Examination: P sychiatry: Appearance: w ell-groomed. [...] * Treatment: 2. P rimary insomnia Stop Mirtazapine Tablet, 15 MG, 1 tablet at bedtime, Orally, Once a day, 30 days, 30; S tart Amitriptyline HCl Tablet, 25 MG, 1 tablet at bedtime, Orally, Once a day As needed, 30 days, 30 Tablet, Refills 1. 3. O thers Notes: Increase lexapro to 20mg daily for mood, [...] -Crisis prevention hotline 988. * Procedure Codes: 9 6127 BEHAV ASSMT W/SCORE & DOCD/STAND [id number] NORMAL BP READING DOC F/U NOT [id number] CLIN DEPRESSION SCREEN [id number] VISIT COMPLEXITY INHERENT TO ONGOING CARE RELATED TO A PATIENT'S SINGLE, SERIOUS CONDITION OR A COMPLEX [id number] MOST RECENT SYSTOLIC BP < 140MM [id number] MOST RECENT DIASTOLIC BP < 90MM HG * Preventive Medicine: Counseling: A dvance Care Planning Date of last Advance Care Planning:?08/04/2024 ____ MIPS * Follow Up: 4 Weeks (Reason: medication follow up) * Billing Information: * Visit Code: 27957 OFFICE OUTPATIENT VISIT 25 MINUTES DETAILED HISTORY AND EXAM/MODERATE MEDICAL DECISION MAKING. * Procedure Codes: 24066 BEHAV ASSMT W/SCORE & DOCD/STAND INSTRUMENT. G8783 NORMAL BP READING DOC F/U NOT RQR. G8431 CLIN DEPRESSION SCREEN DOC. G2211 VISIT COMPLEXITY INHERENT TO ONGOING CARE RELATED TO A PATIENT'S SINGLE, SERIOUS CONDITION OR A COMPLEX CONDITION. G8752 MOST RECENT SYSTOLIC BP < 140MM HG. G8754 MOST RECENT DIASTOLIC BP < 90MM HG. * BASTER Sign off status: Completed true * Provider: Faith ARCE PMHNP Date: 0 08/04/2024 Generated for Kelly rai/Klever/Leeann on: 0 09/03/2024 05:07 PM CDT History and Physical Notes * HPI (History of Present Illness) Category Sub-Category Detail Notes Category Not es History of Presenting Problem Anxiety Rates anxiety 7/10 with 10 b eing most severe. Denies recent panic attacks. Here for follow up. Escitalopram increased last apt. Mother in law about two weeks ago, is struggling with this. Anxiety and motivation have improved. Denies side effects since dose increase. Denies feeling hopeless or helpless. No suicidal ideation. Denies recent panic attacks. Anxiety situational to politics. Sleep is fair, mirtazapine caused hangover drowsiness. Getting about 6 hours nightly. Appetite is good. Depression Rates depression 6/1 0 with 10 being most severe. Denies SI. Suicidal ideation denies Sleep disturbance with a history of sl eep apnea- off CPAP Psychosis no hx psychosis Mood lability no antonino Psychotherapy Xiao Partida at [facility] Medication Side Effects none Past Psychiatric Hospitalizations Previous psychiatric hospitalizations Previous Psychiatric Hospitalization: No Social hx: . 3 estranged children. 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 Previous medications: fluoxetine (tremors), Elavil, duloxetine (increased intraocular pressure), effexor, Milnacipran, trazodone (hangover), pristiq (ineffective), quetiapine (hangover), mirtazapine (hangover) Supplements: vitamin D, magnesium, fish oil Trauma/Abuse: [...] as reading the newspaper or watching television: More than half the days Moving or speaking so slowly that other people could have noticed; or the opposite, being so fidgety or restless that you have been moving around a lot more than usual: Not at all Thoughts that you would be b laura off or of hurting yourself in some way: Not at all Total Score: 14 Interpretation: Moderate Depression Intervention Depression Screening Findings: P osmark Follow-Up for Depression: [facility] treatment assessment, Patient follow-up to [...] as if something awful og ht happen: Several days If you checked any problems, how difficult have they made it for you to do your work, take care of things at home, or get along with other people?: Somewhat difficult [place]-Suicide Severity Rating Scale Suicide Risk (CSRS-screener) in [...]
== END 2024-09-03 16:16 | disposition home or self-care (01) ==
PROVIDERS: PCP Family Medicine; Visit Provider Internal Medicine Critical Care Medicine
DX: R91.1 Solitary pulmonary nodule (principal)
CPT/HCPCS: 71250

== ENCOUNTER 2025-06-10 08:47 | Outpatient (CLI) | payer MEDICARE, SELFPAY ==
--- OUTSIDE RECORDS SUMMARY | 2025-06-09 08:45 | XMS_ITS ---
Author Organization [facility] [employer] Address [address] [place] [address] Care Team Providers Care Makeup Artist Name Role Phone Duarte MCCRARY, Autumn Primary Care Provider Unavailable Iris Mcgrath Unavailable [phone] Charisma Renteria Unavailable [phone] Allergies Allergen (clinical drug ingredient) Drug/Non Drug Allergy documented on EMR Reaction Allergy Type Onset Date Status doxycycline Doxycycline Unknown Drug Allergy Act michael Substance with sulfonamide structure and antibacterial mechanism of action (substance) Sulfa Antibiotics Unknown Drug Allergy Active REASON FOR VISIT 1 month f/u Medications Medication SIG (Take, Route, Frequency, Duration) Notes Start Date End Date Status Restasis 0.05 % Emulsion 1 drop into aff ected eye Ophthalmic Twice a day Active Gemtesa 75 MG Tablet 1 tablet Orally Onc e a day Active Minocycline HCl 50 MG Capsule TAKE 1 CAPSULE BY MOUTH TWICE DAILY Oral; Duration: 90 Days Active Levothyroxine Sodium 50 MCG Tablet Oral; Duration: 100 Days Active Restasis 0.05 % Emulsion Ophthalmic; Dur ation: 90 Days Active Escitalopram Oxalate 20 MG Tablet 1 tablet Orally Once a day 04/15/2025 Active Belsomra 20 MG Tablet 1 tablet at bedtim e as needed Orally Once a day; Duration: 30 days 06/09/2025 07/09/2025 Active Social History Tobacco Use: Social History Observation Description Date Details (start date - stop date) Former Smoker NA - 06/11/1988 Sex Assigned At : Social History Observation Description Sex Assigned At Female Social History Miscellaneous: Social Info Question Answer Notes Advance Care Planning Are you your own decision-maker Yes Do you have Power of Attorne y for Health or Medical? Yes Advance Directive Do Not Intubate,Do N ot Resuscitate,Durable Power of Apprentice Electrician for Healthcare Do you have a power of copper roller handler printing for health? Yes Do you have power of copper roller handler printing for Medical ? Yes If yes, then please bring the POA paperwork so that we can upload it. No Safety issues: Are there any firearms in the house? Ye s Drug/Alcohol: Social Info Question Answer Notes Drugs Have you used drugs other than those for medical reasons in the past 12 months? No AUDIT-C (Standard) Did you have a drink containing alcohol in the past year? Yes How often did you have six or more drinks on one occasion in the past year? Never (0 point) How many drinks did you have on a typical day when you were drinking in the past year? 1 or 2 drinks (0 point) How often did you have a drink containing alcohol in the past year? 2 to 4 times a month (2 points) Tobacco Use: Social Info Question Answer Notes Tobacco Control (Standard) When did you stop smoking? 06/11/1988 Tobacco use: Former smoker How long has it been since you last smoked? 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 Vital Signs Blood pressure systolic 163 mm Hg 06/09/20 25 Blood pressure diastolic 92 mm Hg 025 Heart Rate 60 /min 06/09/2025 Height 60 in 06/09/2025 Weight 165 lbs 06/09/2025 BMI 32.22 kg/m2 06/09/2025 Height-cm 152.4 cm 06/09/2025 Weight-kg 74.84 kg 06/09/2025 Encounters Encounter Location Date Provider Diagnosis [facility] [employer] [address] [address] 06/09/2025 Charisma Renteria MDD (major depressiv e disorder), recurrent severe, 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 ; YENI (generalized anxiety disorder) F41.1 and Primary insomnia F51.01 Assessments Encounter Date Diagnosis (ICD Code) Assessment Notes Treatment Notes Treatment Clinical Notes Section Notes 06/09/2025 MDD (major depressive disorder), recurrent severe, without psychosis (ICD-10 - F33.2) Well controlled with current medication regime 06/09/2025 YENI (generalized anxiety disorder) (ICD-10 - F41.1) Well controlled with current medication regime 06/09/2025 Primary insomnia (ICD-10 - F51.01) Chronic sleep disturbance with frequent awakenings. Multiple medications tried; Belsomra currently used with partial benefit. Negative sleep apnea test and lack of improvement with CPAP. Upcoming insurance change may affect medication coverage. - Continue Belsomra for sleep. - Monitor insurance coverage for sleep medications. Plan Of Treatment Medication Medication Name Sig Start Date Stop Date Notes Escitalopram Oxalate 20 MG Tablet 1 tablet Orally Once a day 04/15/2025 Belsomra 20 MG Tablet 1 tablet at bedtim e as needed Orally Once a day; Duration: 30 days 06/09/2025 07/09/2025 Treatment Notes Assessment Notes MDD (major depressive disord er), recurrent severe, without psychosis Well controlled with current medication regime YENI (generalized anxiety disorder) Well controlled with current medication regime Primary insomnia Chronic sleep disturbance with frequent awakenings. Multiple medications tried; Belsomra currently used with partial benefit. Negative sleep apnea test and lack of improvement with CPAP. Upcoming insurance change may affect medication coverage. - Continue Belsomra for sleep. - Monitor insurance coverage for sleep medications. Next Appt Details Follow Up: 3 months, Reason: Follow Up Provider Name:Iris saravia, 09/04/2025 03:00:00 PM, [address], [facility] [address], [place], [address], History and Physical Notes * HPI (History of Present Illness) Category Sub-Category Detail Notes Category Not es History of Presenting Problem Depression screening done Caitlyn Mane, a 65-year-old female, presented for a chronic condition follow-up focused on sleep issues and medication review. She described ongoing difficulty achieving solid sleep, typically getting about six to seven hours per night but waking frequently. She has tried multiple medications for sleep, including a QV medication that caused a severe hangover and was ultimately discontinued. Currently, she is taking Belsomra, which she finds tolerable, though not fully effective. She expressed concern about an upcoming insurance change and uncertainty regarding coverage for sleep medications. She denied having sleep apnea, noting a negative sleep apnea test and lack of benefit from prior CPAP use. Her sleep issues have persisted since before her fibromyalgia diagnosis, and she remains careful to stay within her known limits to avoid worsening fatigue. In addition to her sleep disturbance, she reported chronic tiredness attributed to fibromyalgia, stating she is always tired and must be cautious not to overexert herself. These limitations shape her daily activities and overall well-being. Recently, she experienced a viral illness that lasted about a week, causing her to miss [place]. She described feeling drained, with body aches, head congestion, loss of voice, and difficulty getting up during the worst of the illness. Her anxiety and depression are managed with Lexapro 20 mg, which she feels is well controlled at present. During the visit, her blood pressure was noted to be a little high, which she attributed to taking Sudafed for her recent viral symptoms. She denied a history of hypertension. Elements of this documentation were generated using an AI-assisted judo instructor or drafting tool. The clinician has personally reviewed, amended when appropriate, and attests that the final content accurately reflects the patient encounter, clinical findings, medical decision-making, and plan of care. The clinician accepts responsibility for the accuracy and completeness of the record. Depression screening PHQ-9 Little interest or pleasure in doing things: Not at all Feeling down, depressed, or hopeless: No t at all Trouble falling or staying asleep, or sl eeping too much: Nearly every day Feeling tired or having little energy: S [...] Interpretation: Mild Depression Intervention Depression Screening Findings: N egative Follow-Up for Depression: Psychiatric fo llow-up Suicide Risk Assessment Performed: 06/09 Functional Status Functional Status Assessment F all Risk Assessment:: One fall without injury in the past year Depression Screening YENI-7 (2018 Edition) Sagar g nervous, anxious, or on edge: Not at all Not being able to stop or control worryi ng: Not at all Worrying too much about different things : Not at all Trouble relaxing: Not at all Being so restless that it is hard to sit still: Not at all Becoming easily annoyed or irritable: Se veral days Feeling afraid as if something awful og ht happen: Not at all Total YENI-7 Score: 1 Interpretation of Total: (0 to 4) No Anx iety [place]-Suicide Severity Rating Scale Suicide Risk (CSRS-screener) in the past one month Have you wished you were or wished you could go to sleep and not wake up?: No in the past one month Have y ou actually had any thoughts of killing yourself?: No Have you ever done anything, started to do anything, or prepared to do anything to end your life?: No Examination Category Sub-Category Detail Notes Category Not es Psychiatry Appearance: Well-groomed, appropriately dressed for age and weather. No unusual features or abnormalities noted. Behavior: Cooperative, calm, and attentive. No psychomotor agitation or retardation. Maintains appropriate eye contact. Speech: Normal rate, rhythm, volume, and articulation. Spontaneous and coherent. No latency or pressure of speech. Mood: Pt reports that she is doing well Affect: Appropriate to content and context. Full range, stable, congruent with stated mood. Thought Process: Linear, logical, goal-directed. No loosening of associations, tangentiality, or flight of ideas. Thought Content: No delusions, paranoia, obsessions, or preoccupations. Denies suicidal or homicidal ideation. Perceptions: No hallucinations (auditory, visual, or other). No perceptual disturbances. Cognition: Alert and oriented 4 (person, place, time, situation). Attention and concentration intact. Memory (recent and remote) intact. Insight: Good (aware of condition and need for treatment). Judgement: Intact (able to make sound decisions, understands consequences). Progress Notes * Caitlyn MANEDOB:1960 (65 yo F)Acc No.[id number]:06/09/2025 Patient: Caitlyn Montes Provider: Sheyla Renteria :1960 A ge:65 Y S ex:Female Date:06/09/2025 Phone: Address:[address] [place], [place] [id number] Pcp:Autumn Zhu Subjective: * Chief Complaints: * 1 month f/u * HPI: D epression Screening: YENI-7 (2018 Edition) F eeling nervous, anxious, or on edge N ot at all N ot being able to stop or control worrying?Not at all W orrying too much about different things N ot at all T rouble relaxing N ot at all B eing so restless that it is hard to sit still N ot at all B ecoming easily annoyed or irritable S everal days F eeling afraid as if something awful might happen N ot at all T otal YENI-7 Score 1 I nterpretation of Total ( 0 to 4) No Anxiety [place]-Suicide Severity Rating Scale: Suicide Risk (CSRS-screener) i n the past one month Have you wished you were or wished you could go to sleep and not wake up? N o i n the past one month Have you actually had any thoughts of killing yourself? N o H ave you ever done anything, started to do anything, or prepared to do anything to end your life? N o D epression screening: PHQ-9 L ittle interest or pleasure in doing things?Not at all F eeling down, depressed, or hopeless N ot at all T rouble falling or staying asleep, or sleeping too much N early every day F eeling tired or having little energy S everal days P oor appetite or overeating S everal days F eeling bad about yourself or that you are a failure, or have let yourself or your family down N ot at all T rouble concentrating on things, such as reading the newspaper or watching television N ot at all M oving or speaking so slowly that other people could have noticed; or the opposite, being so fidgety or restless that you have been moving around a lot more than usual N ot at all T houghts that you would be better off or of hurting yourself in some way N ot at all T otal Score 5 I nterpretation M ild Depression Intervention D epression Screening Findings N egative F ollow-Up for Depression P sychiatric follow-up S uicide Risk Assessment Performed 1 F unctional Status: Functional Status Assessment F all Risk Assessment: O ne fall without injury in the past year H istory of Presenting Problem: Elevated or Hypertensive blood pressure reading Elevated BP. Depression screening done Caitlyn Mane, a 65-year-old female, presented for a chronic condition follow-up focused on sleep issues and medication review. She described ongoing difficulty achieving solid sleep, typically getting about six to seven hours per night but waking frequently. She has tried multiple medications for sleep, including a QV medication that caused a severe hangover and was ultimately discontinued. Currently, she is taking Belsomra, which she finds tolerable, though not fully effective. She expressed concern about an upcoming insurance change and uncertainty regarding coverage for sleep medications. She denied having sleep apnea, noting a negative sleep apnea test and lack of benefit from prior CPAP use. Her sleep issues have persisted since before her fibromyalgia diagnosis, and she remains careful to stay within her known limits to avoid worsening fatigue. In addition to her sleep disturbance, she reported chronic tiredness attributed to fibromyalgia, stating she is always tired and must be cautious not to overexert herself. These limitations shape her daily activities and overall well-being. Recently, she experienced a viral illness that lasted about a week, causing her to miss [place]. She described feeling drained, with body aches, head congestion, loss of voice, and difficulty getting up during the worst of the illness. Her anxiety and depression are managed with Lexapro 20 mg, which she feels is well controlled at present. During the visit, her blood pressure was noted to be a little high, which she attributed to taking Sudafed for her recent viral symptoms. She denied a history of hypertension. Elements of this documentation were generated using an AI-assisted judo instructor or drafting tool. The clinician has personally reviewed, amended when appropriate, and attests that the final content accurately reflects the patient encounter, clinical findings, medical decision-making, and plan of care. The clinician accepts responsibility for the accuracy and completeness of the record. * ROS: C onstitutional: denies fever, chills, weight changes HEENT: denies vision changes, hearing issues, congestion, sore throat Cardiovascular:denies chest pain, palpitations, edema Respiratory:denies cough, shortness of breath, wheezing GI:denies abdominal pain, nausea, vomiting, diarrhea, constipation : denies dysuria, frequency, urgency, hematuria Musculoskeletal:denies joint pain, muscle aches, stiffness Neurological:denies dizziness, weakness, numbness, tingling Skin:denies rash, itching, lesions Endocrine: d enies heat/cold intolerance, polyuria, polydipsia Hematologic:denies bruising or bleeding Allergic/Immunologic: denies allergies or recurrent infections. 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 * Hospitalization/Major Diagno stic Procedure: No Hospitalization Documented. Hospitalization Verified. * Family History: F ather: None. M aternal Aunt: None. M aternal Uncle: None. P aternal Aunt: None.?Paternal Uncle: None. M other: None. P aternal Grandfather: None. P aternal Grandmother: None. M aternal Grandfather: None. M aternal Grandmother: None. B rother: None.?Sister: None. D aughter: None. F amily History Verified.. * Social History: T obacco Use: T [...] times a month (2 points) M iscellaneous: S afety issues A re there any firearms in the house? 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 Y es D o you have a power of copper roller handler printing for health??Yes D o you have power of copper roller handler printing for Medical ??Yes I f yes, then please bring the POA paperwork so that we can upload it. N o A dvance Directive D o Not Intubate,Do Not Resuscitate,Durable Power of Apprentice Electrician for Healthcare S ocial History Verified. * Medications: T akingRestasis 0.05 % Emulsion 1 drop into affected eye Ophthalmic Twice a day Gemtesa 75 MG Tablet 1 tablet Orally Once a day Minocycline HCl 50 MG Capsule TAKE 1 CAPSULE BY MOUTH TWICE DAILY Oral Levothyroxine Sodium 50 MCG Tablet Oral Restasis 0.05 % Emulsion Ophthalmic Escitalopram Oxalate 20 MG Tablet 1 tablet Orally Once a day Belsomra 20 MG Tablet 1 tablet at bedtime as needed Orally Once a day , stop date 06/11/2025Medication List reviewed and reconciled with the patientTaking [...] 1 tablet Orally Once a day Taking Belsomra 20 MG Tablet 1 tablet at bedtime as needed Orally Once a day , stop date 06/11/2025Medication List reviewed and reconciled with the patient * Allergies: S ulfa AntibioticsDoxycyclineyesAllergies Verified. Objective: * Vitals: B P:163/92mm Hg, HR:60/min, Wt:165lbs, Wt-k.84 kg, Ht: 60 in, Ht-cm: 152.4 cm, BMI:32.22Index, Body Surface Area: 1.78. * Examination: P sychiatry: A ppearance: Well-groomed, appropriately dressed for age and weather. No unusual features or abnormalities noted. Behavior: Cooperative, calm, and attentive. No psychomotor agitation or retardation. Maintains appropriate eye contact. Speech: Normal rate, rhythm, volume, and articulation. Spontaneous and coherent. No latency or pressure of speech. Mood: Pt reports that she is doing well Affect: Appropriate to content and context. Full range, stable, congruent with stated mood. Thought Process: Linear, logical, goal-directed. No loosening of associations, tangentiality, or flight of ideas. Thought Content: No delusions, paranoia, obsessions, or preoccupations. Denies suicidal or homicidal ideation. Perceptions: No hallucinations (auditory, visual, or other). No perceptual disturbances. Cognition: Alert and oriented 4 (person, place, time, situation). Attention and concentration intact. Memory (recent and remote) intact. Insight: Good (aware of condition and need for treatment). Judgement: Intact (able to make sound decisions, understands consequences). Assessment: * Assessment: 1. M DD (major depressive disorder), recurrent severe, without psychosis - F33.2 (Primary) 2 . G AD (generalized anxiety disorder) - F41.1 3 . P rimary insomnia - F51.01 Plan: * Treatment: 2. G AD (generalized anxiety disorder) Notes: Well controlled with current medication regime 3. P rimary insomnia Refill Belsomra Tablet, 20 MG, 1 tablet at bedtime as needed, Orally, Once a day, 30 days, 30 Tablet. Notes: Chronic sleep disturbance with frequent awakenings. Multiple medications tried; Belsomra currently used with partial benefit. Negative sleep apnea test and lack of improvement with CPAP. Upcoming insurance change may affect medication coverage. - Continue Belsomra for sleep. - Monitor insurance coverage for sleep medications. * Procedure Codes: 9 6127 BEHAV ASSMT W/SCORE & DOCD/STAND [id number] TOBACCO NON-USER * Preventive Medicine: Counseling: B P Management: X , FIRST HYPERTENSIVE BP READING FOLLOW-UP PLAN: F ollow-up 1 month Follow up with your PCP LIFESTYLE RECOMMENDATION: L ifestyle education REFERRAL TO ALTERNATIVE / PRIMARY CARE PROVIDER: R eferral to general medical service WEIGHT REDUCTION RECOMMENDATION: W eight-reducing diet education DIETARY RECOMMENDATIONS: D iet education Dietary Healthy-Heart Diet Screenings: D epression screening Have you had a recent depression screening? Y es P atient Understanding & Engagement: Patient demonstrated good understanding of the information discussed. Time was taken to clarify questions and ensure comprehension. Patient expressed interest in participating in treatment plan. Patient encouraged to follow up regularly and engage in therapeutic recommendations. Will continue to monitor progress and provide ongoing support. Patient given opportunity to contact provider if issues arise between sessions. * Follow Up: 3 months (Reason: Follow Up) Billing Information: * Visit Code: 57933 OFFICE OUTPATIENT VISIT 25 MINUTES DETAILED HISTORY AND EXAM/MODERATE MEDICAL DECISION MAKING. * Procedure Codes: 99363 BEHAV ASSMT W/SCORE & DOCD/STAND INSTRUMENT. 1036F TOBACCO NON-USER. * AISAL COORDINATOR Sign off status: Completed true * Provider: Sheyla Renteria Date: Generated for Kelly rai/Klever/Leeann on: 08:53 AM APPRAISAL COORDINATOR
--- NOTE | ~2025-06-10 | DEXA_ITS ---
Bone Density Report Name: JUAN MITTAL Age: 65 Sex: Female Ethnicity: White Date of : 1960 Indication: monitoring treatment; height loss; history of glucocorticoids; rheumatoid arthritis; Referring Provider: VICKY WATTS Study: Bone densitometry was performed. Exam Date: June 10, 2025 Accession number: [id number] Bone Density: Region BMD T-score Z-score Classification AP Spine(L1-L4) 1.060 0.1 1.9 Normal Femoral Neck (Left) 0.630 -2.0 -0.4 Osteopenia Total Hip (Left) 0.894 -0.4 0.9 Normal Femoral Neck (Right) 0.600 -2.2 -0.7 Osteopenia Total Hip (Right) 0.820 -1.0 0.2 Normal Total Hip Mean 0.857 -0.7 0.6 Normal World Health Organization criteria for BMD impression classify patients as: Normal (T-score at or above -1.0), Osteopenia (T-score between -1.0 and -2.5), or Osteoporosis (T-score at or below -2.5). 10-year Fracture Risk: FRAX not reported because: Treated for osteoporosis Previous Exams: Region Exam Age BMD T-score BMD Change BMD Change Date g/cm2 vs Baseline vs Previous AP Spine (L1-L4) 06/10/2025 65 1.060 0.1 -0.141 (-11.8% -0.038 (-3.5%) 06/08/2023 63 1.097 0.5 -0.103 (-8.6%) -0.022 (-2.0%) 02/24/2021 61 1.119 0.7 -0.081 (-6.8%) -0.081 (-6.8%) 01/14/2019 58 1.201 1.4 Total Hip(Left) 06/10/2025 65 0.894 -0.4 -0.131 (-12.7% 0.078 (9.6%)* 06/08/2023 63 0.816 -1.0 -0.209 (-20.4% -0.135 (-14.2% 02/24/2021 61 0.951 0.1 -0.074 (-7.3%) -0.074 (-7.3%) 01/14/2019 58 1.025 0.7 Total Hip(Right) 06/10/2025 65 0.820 -1.0 -0.182 (-18.2% -0.055 (-6.3%) 06/08/2023 63 0.875 -0.6 -0.127 (-12.7% -0.056 (-6.0%) 02/24/2021 61 0.931 -0.1 -0.071 (-7.1%) -0.071 (-7.1%) 01/14/2019 58 1.002 0.5 *Denotes significance at 95% confidence level, LSC for AP Spine = 0.022 g/cm2, LSC for Total Hip = 0.027 g/cm2 Clinical Information Provided by Patient: Has taken Glucocorticoids Has rheumatoid arthritis Is being treated for osteoporosis Has used the following medications: Vitamin D, Calcium Patient maximum height was 62.0 Menopause Age: 56 Drinks caffeinated beverages Onset of menses at age 12 Number of children 1 Impression: The patient has low bone mass, based on the Right Femoral Neck T-score. The patient has risk factors, including: history of glucocorticoid therapy. The BMD for the AP Spine (L1-L4) decreased, changing by -3.5% since the last DXA exam. The BMD for the Total Hip(Right) decreased, changing by -6.3% since the last DXA exam. Discussion: SIGNIFICANT BONE LOSS OBSERVED. Adherence to therapy (including calcium and vitamin D intake) should be assessed. If compliance is not a factor, review management and exclusion of secondary causes of bone loss. It is important to ask patients whether they are taking their medications and to encourage continued and appropriate compliance with their osteoporosis therapies to reduce fracture risk. It is also important to review their risk factors and encourage appropriate calcium and vitamin D intakes, exercise, fall prevention and other lifestyle measures. Follow-Up: Consider a repeat BMD and Vertebral Fracture Assessment (VFA) exam in 2 years or sooner if medically necessary, to reassess this patient's status. Reported by: JORDAN on 06/10/2025 9:33:00 AM. Reviewed, dictated and finalized at location A.
--- OUTSIDE RECORDS SUMMARY | 2025-06-10 08:54 | XMS_ITS | Clinical Summary ---
Author Organization [facility] Address [address] [place] [address] Care Team Providers Care Reference Investigator Name Role Phone Autumn Ramachandran MD Primary [...] on file Legal Sex Female 8:27 PM PHARMACY GRADUATE INTERN Gender Identity Not on file Sexual Orientation Not on file Last Filed Vital Signs Vital Sign Reading Time Taken Comments Blood Pressure 151/84 07/07/2020 9:16 AM PHARMACY GRADUATE INTERN Pulse 54 07/07/2020 9:16 AM PHARMACY GRADUATE INTERN Temperature 36.5 C (97.7 F) 07/07/2020 9:16 AM PHARMACY GRADUATE INTERN Respiratory Rate - - Oxygen Saturation 96% 03/28/2020 6:02 PM CDT Inhaled Oxygen Concentration - - Weight 84.6 kg (186 lb 9.6 oz) 07/07/2020 9:16 A M PHARMACY GRADUATE INTERN Height 154.9 cm (5' 1) 07/07/2020 9:16 AM PHARMACY GRADUATE INTERN Body Mass Index 35.26 07/07/2020 9:16 AM PHARMACY GRADUATE INTERN Plan of Treatment Not on file Insurance [facility] MEDICARE ADVANTAGE [facility] MEDICARE ADVANTAGE [address] [place] [id number] Advance Directives For more information, please contact: [phone] Documents on File Type Date Recorded Patient Accounting Lecturer Expl anation ADVANCE DIRECTIVE 04/05/2020 12:00 AM [facility] FINANCIAL/MEDICAL ADVANCE DIRECTIVE 04/05/2020 12:00 AM [facility] WILL Care Teams Reference Investigator Relationship Specialty Start Date End Date Autumn Ramachandran MD PCP - General Family Practice 02/04/20
--- OUTSIDE RECORDS SUMMARY | 2025-06-10 08:54 | XMS_ITS | Clinical Summary ---
Author Organization [facility] Address [facility] [place] [address] Care Team Providers Care Distributor Of Directories Name Role Phone Unavailable Primary Care Provider Unavailabl e Immunizations Immunization Administration Dates Next Due MODERNA COVID-19 (12+) [...] Health Maintenance Due Date Last Done Comments Colorectal Cancer Screening Colonoscopy (10 Years) 1960 Hepatitis C 02/01/1978 DTaP, Tdap and Td Vaccines ( 1 - Tdap) 02/01/1979 Mammogram Screening 2000 Pneumococcal Vaccine: 50+ Years (1 of 1 - PCV) 02/01/2010 Dexa Scan (General) 02/01/2025 COVID-19 Vaccine (3 - 2024-2 6 season) 2025 08/20/2020, 07/23/2020 Influenza Adult (#1) 2025 RSV Immunization or 60+ Years (1 - 1-dose 75+ series) 02/01/2035 Zoster Vaccines Completed 12/31/2019, 08/08/2019 Hepatitis A Vaccines Aged Out No long er eligible based on patient's age to complete this topic Meningococcal B Vaccine Aged Out No l onger eligible based on patient's age to complete this topic Meningococcal Vaccine Aged Out No justina jean claude eligible based on patient's age to complete this topic RSV Immunizations Under 20 Months Aged Out No longer eligible b ased on patient's age to complete this topic
--- OUTSIDE RECORDS SUMMARY | 2025-06-10 08:54 | XMS_ITS | Patient Health Record ---
Author Organization [facility] Address [address] [facility] [address] [place] [address] Care Team Providers Care Director Of Surgery Name Role Phone Duarte MCCRARY, Autumn Primary Care Provider Unavailable Iris Mcgrath Unavailable [phone] Charisma Renteria Unavailable [phone] Allergies Allergen (clinical drug ingredient) Drug/Non Drug Allergy documented on EMR Reaction Allergy Type Onset Date Status doxycycline Doxycycline Unknown Drug Allergy Act michael Substance with sulfonamide structure and antibacterial mechanism of action (substance) Sulfa Antibiotics Unknown Drug Allergy Active Reason For Referral No Information Medications Medication SIG (Take, Route, Frequency, Duration) Notes Start Date End Date Status Restasis 0.05 % Emulsion 1 drop into aff ected eye Ophthalmic Twice a day Active Gemtesa 75 MG Tablet 1 tablet Orally Onc e a day Active Escitalopram Oxalate 20 MG Tablet 1 tablet Orally Once a day 04/15/2025 Active Belsomra 20 MG Tablet 1 tablet at bedtim e as needed Orally Once a day; Duration: 30 days 06/09/2025 07/09/2025 Active Minocycline HCl 50 MG Capsule TAKE 1 CAPSULE BY MOUTH TWICE DAILY Oral; Duration: 90 Days Active Levothyroxine Sodium 50 MCG Tablet Oral; Duration: 100 Days Active Restasis 0.05 % Emulsion Ophthalmic; Dur ation: 90 Days Active Social History Tobacco Use: Social History Observation Description Date Details (start date - stop date) Former Smoker NA - 06/11/1988 Sex Assigned At : Social History Observation Description Sex Assigned At Female Social History Miscellaneous: Social Info Question Answer Notes Advance Care Planning Advance Directive Do Not I ntubate,Do Not Resuscitate,Durable Power of Skiver Blockers for Healthcare Are you your own decision-maker Yes Do you have Power of Skiver Blockers for Health or Medi jaya? Yes Do you have a power of safety engineer pressure vessels for health? Yes Do you have power of safety engineer pressure vessels for Medical ? Yes If yes, then please bring the POA paperwork so that we can upload it. No Safety issues: Are there any firearms in the house? 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 Problem Type SNOMED Code ICD Code Onset Dates Problem Status W/U Status Risk Notes Problem Primary insomnia (9584263) Primary insomnia (F51.01) Active confirmed Problem Generalized anxiety disorder (49660854) YENI (generalized anxiety disorder) (F41.1) Active confirmed Problem Severe recurrent major depression without psychotic features (58279333) MDD (major depressive disorder), recurrent severe, 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) Active confirmed Vital Signs Heart Rate 60 /min 06/09/2025 Height-cm 152.4 cm 06/09/2025 Blood pressure diastolic 92 mm Hg 06/09/2025 Weight-kg 74.84 kg 06/09/2025 Height 60 in 06/09/2025 Blood pressure systolic 163 mm Hg 06/09/2025 Weight 165 lbs 06/09/2025 BMI 32.22 kg/m2 06/09/2025 Encounters Encounter Location Date Provider Diagnosis [facility] [address] [place] [id number] 07/02/2024 Iris Mcgrath MDD (major depressiv e disorder), recurrent severe, 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 ; YENI (generalized anxiety disorder) F41.1 and Primary insomnia F51.01 [facility] [place] [address] [facility] [address] [facility] [address] [place] [address] 08/04/2024 Iris Mcgrath MDD (major depressiv e disorder), recurrent severe, 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 ; YENI (generalized anxiety disorder) F41.1 and Primary insomnia F51.01 [facility] [facility] [address] [place] [address] 09/01/2024 Irisjada Mcgrath Encounter for screen ing for depression Z13.31 ; MDD (major depressive disorder), recurrent severe, 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 ; YENI (generalized anxiety disorder) F41.1 and Primary insomnia F51.[address] [facility] [address] [place] [address] 10/06/2024 Irisjada Mcgrath Encounter for screen ing for cardiovascular disorders Z13.6 ; Encounter for screening for depression Z13.31 ; MDD (major depressive disorder), recurrent severe, 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 ; YENI (generalized anxiety disorder) F41.1 and Primary insomnia F51.01 [facility] [place] [address] [address] 12/01/2024 Irisjada Mcgrath Encounter for screen ing for cardiovascular disorders Z13.6 ; Encounter for screening for depression Z13.31 ; MDD (major depressive disorder), recurrent severe, 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 ; YENI (generalized anxiety disorder) F41.1 and Primary insomnia F51.01 [facility] [place] [address] [facility] [address] [facility] [address] [place] [address] 03/02/2025 Irisjada Mcgrath MDD (major depressiv e disorder), recurrent severe, 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 ; YENI (generalized anxiety disorder) F41.1 and Primary insomnia F51.01 [facility] [place] [address] [facility] [address] [place] [address] 04/15/2025 Irisjada Mcgrath MDD (major depressiv e disorder), recurrent severe, 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 ; YENI (generalized anxiety disorder) F41.1 and Primary insomnia F51.01 [facility] [place] [address] [facility] [address] [facility] [address] [place] [address] 06/09/2025 Charisma Dexter MDD (major depressiv e disorder), recurrent severe, 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 ; YENI (generalized anxiety disorder) F41.1 and Primary insomnia F51.01 [facility] [address] [place] [address] 07/02/2024 Iris Ramila [facility] [address] [place] [address] 04/08/2025 Irisjada Mcgrath MDD (major depressiv e disorder), recurrent severe, 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 and Primary insomnia F51.01 [facility] [address] [facility] [address] [place] [address] 10/14/2024 Iris Kurilla Primary insomnia F51 .01 [facility] [address] [facility] [address] [place] [address] 03/31/2025 Iris Kurilla Primary insomnia F51 .01 [facility] [address] [facility] [address] [place] [address] 05/12/2025 Iris Kurilla Primary insomnia F51 .01 [facility] [address] [facility] [address] [place] [address] 05/25/2025 Charisma Dexetr [facility] [address] [address] 05/28/2025 Iris Mcgrath Assessments Encounter Date Diagnosis (ICD Code) Assessment Notes Treatment Notes Treatment Clinical Notes Section Notes 09/01/2024 Encounter for screening for depression (ICD-10 - Z13.31) 10/14/2024 Primary insomnia (ICD-10 - F51.01) 03/02/2025 MDD (major depressive disorder), recurrent severe, without psychosis (ICD-10 - F33.2) SSRI/SNRI side effects discussed including but not limited to, gastric upset, nausea, vomiting, diarrhea and/or constipation, weight changes, sexual side effects including loss of libido, increased suicidal thoughts/behavio rs in children and young adults, and serotonin syndrome. 03/31/2025 Primary insomnia (ICD-10 - F51.01) 04/15/2025 MDD (major depressive disorder), recurrent severe, without psychosis (ICD-10 - F33.2) SSRI/SNRI side effects discussed including but not limited to, gastric upset, nausea, vomiting, diarrhea and/or constipation, weight changes, sexual side effects including loss of libido, increased suicidal thoughts/behavio rs in children and young adults, and serotonin syndrome. 05/12/2025 Primary insomnia (ICD-10 - F51.01) 06/09/2025 MDD (major depressive disorder), recurrent severe, without psychosis (ICD-10 - F33.2) Well controlled with current medication regime 12/01/2024 Encounter for screening for cardiovascular disorders (ICD-10 - Z13.6) 10/06/2024 Encounter for screening for cardiovascular disorders (ICD-10 - Z13.6) 08/04/2024 MDD (major depressive disorder), recurrent severe, without psychosis (ICD-10 - F33.2) SSRI/SNRI side effects discussed including but not limited to, gastric upset, nausea, vomiting, diarrhea and/or constipation, weight changes, sexual side effects including loss of libido, increased suicidal thoughts/behavio rs in children and young adults, and serotonin syndrome. 07/02/2024 MDD (major depressive disorder), recurrent severe, without psychosis (ICD-10 - F33.2) SSRI/SNRI side effects discussed including but not limited to, gastric upset, nausea, vomiting, diarrhea and/or constipation, weight changes, sexual side effects including loss of libido, increased suicidal thoughts/behavio rs in children and young adults, and serotonin syndrome. 07/02/2024 YENI (generalized anxiety disorder) (ICD-10 - F41.1) 06/09/2025 YENI (generalized anxiety disorder) (ICD-10 - F41.1) Well controlled with current medication regime 08/04/2024 YENI (generalized anxiety disorder) (ICD-10 - F41.1) 10/06/2024 Encounter for screening for depression (ICD-10 - Z13.31) 12/01/2024 Encounter for screening for depression (ICD-10 - Z13.31) 04/08/2025 MDD (major depressive disorder), recurrent severe, without psychosis (ICD-10 - F33.2) Electronic Prior Authorization was requested for DayVigo 5 MG Tablet. Provider can order medication once approval received. 03/02/2025 YENI (generalized anxiety disorder) (ICD-10 - F41.1) 04/15/2025 YENI (generalized anxiety disorder) (ICD-10 - F41.1) 09/01/2024 MDD (major depressive disorder), recurrent severe, without psychosis (ICD-10 - F33.2) SSRI/SNRI side effects discussed including but not limited to, gastric upset, nausea, vomiting, diarrhea and/or constipation, weight changes, sexual side effects including loss of libido, increased suicidal thoughts/behavio rs in children and young adults, and serotonin syndrome. 09/01/2024 YENI (generalized anxiety disorder) (ICD-10 - F41.1) 04/15/2025 Primary insomnia (ICD-10 - F51.01) 04/08/2025 Primary insomnia (ICD-10 - F51.01) Electronic Prior Authorization was requested for DayVigo 5 MG Tablet. Provider can order medication once approval received. 03/02/2025 Primary insomnia (ICD-10 - F51.01) 12/01/2024 MDD (major depressive disorder), recurrent severe, without psychosis (ICD-10 - F33.2) SSRI/SNRI side effects discussed including but not limited to, gastric upset, nausea, vomiting, diarrhea and/or constipation, weight changes, sexual side effects including loss of libido, increased suicidal thoughts/behavio rs in children and young adults, and serotonin syndrome. 06/09/2025 Primary insomnia (ICD-10 - F51.01) Chronic sleep disturbance with frequent awakenings. Multiple medications tried; Belsomra currently used with partial benefit. Negative sleep apnea test and lack of improvement with CPAP. Upcoming insurance change may affect medication coverage. - Continue Belsomra for sleep. - Monitor insurance coverage for sleep medications. 10/06/2024 MDD (major depressive disorder), recurrent severe, without psychosis (ICD-10 - F33.2) SSRI/SNRI side effects discussed including but not limited to, gastric upset, nausea, vomiting, diarrhea and/or constipation, weight changes, sexual side effects including loss of libido, increased suicidal thoughts/behavio rs in children and young adults, and serotonin syndrome. 08/04/2024 Primary insomnia (ICD-10 - F51.01) 07/02/2024 Primary insomnia (ICD-10 - F51.01) 10/06/2024 YENI (generalized anxiety disorder) (ICD-10 - F41.1) 12/01/2024 YENI (generalized anxiety disorder) (ICD-10 - F41.1) 09/01/2024 Primary insomnia (ICD-10 - F51.01) 10/06/2024 Primary insomnia (ICD-10 - F51.01) 12/01/2024 Primary insomnia (ICD-10 - F51.01) 07/02/2024 Other [...] therapeutic effects of psychotropic medications. -Crisis prevention [facility] 988. 08/04/2024 Other Increase lexapro to 20mg [...] therapeutic effects of psychotropic medications. -Crisis prevention [facility] 988. 09/01/2024 Other Start doxepin 25mg nightly [...] therapeutic effects of psychotropic medications. -Crisis prevention [facility] 988. 10/06/2024 Other Stop doxepin due to hangover drowsiness Start Belsomra 10mg daily for insomnia Patient educated on all medications including potential benefits, side effects, risks. Educated on proper dosing schedule and importance of compliance. [place] report checked and consistent with prescription history, no controlled substance prescriptions from other providers. -Assessment and treatment plan reviewed with patient. -Compliance with treatment plan importance discussed. -Discussed the risks/benefits of this medication -Discussed medication side effects. -Contact office if symptoms worsen. -Discussed that it can take up to 6-8 weeks to see full therapeutic effects of psychotropic medications. -Crisis prevention [facility] 988. 12/01/2024 Other Increase Belsomra to 20mg daily for sleep support Patient educated on all medications including potential benefits, side effects, risks. Educated on proper dosing schedule and importance of compliance. [place] report checked and consistent with prescription history, no controlled substance prescriptions from other providers. -Assessment and treatment plan reviewed with patient. -Compliance with treatment plan importance discussed. -Discussed the risks/benefits of this medication -Discussed medication side effects. -Contact office if symptoms worsen. -Discussed that it can take up to 6-8 weeks to see full therapeutic effects of psychotropic medications. -Crisis prevention [facility] 988. 03/02/2025 Other Start lunesta 2mg daily for sleep Discontinue belsomra Patient educated on all medications including potential benefits, side effects, risks. Educated on proper dosing schedule and importance of compliance. [place] report checked and consistent with prescription history, no controlled substance prescriptions from other providers. -Assessment and treatment plan reviewed with patient. -Compliance with treatment plan importance discussed. -Discussed the risks/benefits of this medication -Discussed medication side effects. -Contact office if symptoms worsen. -Discussed that it can take up to 6-8 weeks to see full therapeutic effects of psychotropic medications. -Crisis prevention [facility] 988. 04/15/2025 Other Start Quviviq 25mg qHS for insomia Patient educated on all medications including potential benefits, side effects, risks. Educated on proper dosing schedule and importance of compliance. [place] report checked and consistent with prescription history, no controlled substance prescriptions from other providers. -Assessment and treatment plan reviewed with patient. -Compliance with treatment plan importance discussed. -Discussed the risks/benefits of this medication -Discussed medication side effects. -Contact office if symptoms worsen. -Discussed that it can take up to 6-8 weeks to see full therapeutic effects of psychotropic medications. -Crisis prevention [place] [id number]. 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
== END 2025-06-10 08:48 | disposition home or self-care (01) ==
LOC: ANHFOHIMG 08:49
PROVIDERS: PCP Family Medicine; Visit Provider Internal Medicine Endocrinology, Diabetes & Metabolism
DX: Z78.0 Asymptomatic menopausal state (principal); M85.852 Other specified disorders of bone density and structure, left thigh; M85.851 Other specified disorders of bone density and structure, right thigh
CPT/HCPCS: 77080